=== PATIENT | female | born 1985 | race African-American/Black ===

== ENCOUNTER 2023-05-22 18:46 | Emergency (ER) | payer OTHER, SELFPAY ==
[2023-05-22] VITALS (11 sets, daily range): BP systolic 134–143; BP diastolic 57–84; PULSE 67–85; RESP 14–20; TEMP 36.4–36.6; O2SAT 98–100
--- NOTE | ~2023-05-22 | XR_ITS ---
Clinical Indication: Chest pain PA and lateral views of the chest: Comparison: 11/28/2015 Findings: The lungs are clear, without evidence of focal consolidation or pleural effusion. Cardiome diastinal silhouette is within normal limits. Bones and soft tissues are unremarkable. Impression: Normal chest. Reviewed, dictated and finalized at location . Impression: Normal chest.
--- NOTE | 2023-05-22 18:47 | ECG_ITS ---
Measurements Intervals [place] Rate: 78 P: 52 MI: 158 QRS: 39 QRSD: 82 T: 51 QT: 350 QTc: 400 Interpretive Statements SINUS RHYTHM BASELINE WANDER- I, III NORMAL ECG NO PREVIOUS ECG AVAILABLE FOR COMPARISON Electronically Signed On 05-22-2023 19:13:33 CDT by Varun Sierra D.O.
[2023-05-22 19:38] LABS: Basophils Percent Auto 0.4 % (0.2-1.2); Eosinophils Absolute Auto 0.2 K/mm3 (0-0.3); Eosinophils Percent Auto 2.4 % (0-4.4); Hematocrit 35.6 % (37.0-47.0); Hemoglobin 12.1 g/dL (12.0-15.0); Immature Granulocyte Absolute 0.02 K/mm3 (0.00-0.031); Immature Granulocyte Percent A 0.3 % (0-0.5); Lymphocytes Absolute Auto 2.54 K/mm3 (0.9-3.2); Mean Corpuscular Hemoglobin 29.4 pg (26-34); Mean Corpuscular Volume 86.6 fl (80-100); Monocytes Absolute Auto 0.6 K/mm3 (0.1-0.6); Monocytes Percent Auto 7.6 % (2.6-8.5); Neutrophils Absolute Auto 4.1 K/mm3 (1.3-6.7); Neutrophils Percent Auto 55.3 % (45.5-73.1); Platelet Count Result 312 k/mm3 (150-375); Red Blood Count 4.11 M/mm3 (4.2-5.4); Red Cell Distribution Width 12.6 % (11.5-14.5); White Blood Count 7.5 K/mm3 (4.5-10.0)
[2023-05-22 19:57] LABS: Alanine Aminotransferase 26 U/L (6-35); Albumin Level 4.2 g/dL (3.5-5.1); Alkaline Phosphatase 63 U/L (38-126); Anion Gap 6 mmol/L (8-16); Aspartate Amino Transferase 26 U/L (14-36); Bilirubin,Total 0.8 mg/dL (0.2-1.3); Blood Urea Nitrogen 10 mg/dL (7-17); Calcium 8.6 mg/dL (8.4-10.2); Carbon Dioxide 27 mmol/L (22-30); Chloride 103 mmol/L (98-107); Estimated CRCL calculation 143 ml/min; Estimated Glomerular Filt Rate > 60; Glucose 98 mg/dL (65-110); Lipase 64 U/L (23-300); Potassium 3.9 mmol/L (3.4-5.0); Sodium 136 mmol/L (137-145)
[2023-05-22 20:03] LABS: INR 0.9; Partial Thromboplastin Time 28.1 SECONDS (22.3-36.8); Prothrombin Time 12.9 Seconds (11.1-14.7)
[2023-05-22 20:06] LABS: Troponin I < 0.012 ng/mL (0.000-0.034)
[2023-05-22 20:31] LABS: D Dimer 0.43 ug/mL (<0.48)
[2023-05-22 21:54] LABS: Troponin I < 0.012 ng/mL (0.000-0.034)
--- NOTE | 2023-05-22 21:59 | ED.CHESTPAIN ---
HPI - Chest Pain General Chief Complaint: Chest Pain Stated Complaint: CP Time Seen by Provider: 05/22/23 19:24 History of Present Illness HPI narrative: 37-year-old female presented emergency department for evaluation of left-sided chest pain. Patient reports that the pain started while she was at work today. Patient states the pain is sharp and located her left chest. Patient states the pain is worsened with inspiration. Patient denies any prior history of coronary artery disease. Patient denies any recent falls injuries, patient is not on any form of control or hormone replacement. Denies any prior history of cancer. Patient denies any prior history of pulmonary embolism or DVT. Related Data Allergies Allergy/AdvReac Type Severity Reaction Status Date / Time No Known Allergies Allergy Verified 09/02/19 12:09 Review of Systems Review of Systems: All systems reviewed & are unremarkable except as noted in HPI and below Exam Narrative: APPEARANCE: Well appearing, no pain, no distress, well-nourished. HEAD: normocephalic, atraumatic. EYES: PERRLA/EOMI, conjunctivae clear. NOSE: Normal no drainage NECK: Supple. No adenopathy, no masses. RESPIRATORY: Airway patent, respirations nonlabored. Clear to auscultation bilaterally, no rales, rhonchi, wheezing. CARDIOVASCULAR: Regular rate and rhythm without murmurs rubs or gallops. ABDOMINAL: Soft, nontender, nondistended, normal bowel sounds MUSCULOSKELETAL: Reproducible left chest wall tenderness to palpation NEURO: Alert. Cranial nerves II through XII intact. Good gait. Good coordination SKIN: Warm, dry. Normal Color PSYCHIATRIC: Normal affect/mood. Course Course Emergency Course: 37-year-old female presented the ED for evaluation of left-sided chest pain that is reproducible to palpation. Patient is afebrile with no leukocytosis and a stable hemoglobin. Patient had a D-dimer that was below level of concern. Patient had negative serial troponins. Chest x-ray shows no acute cardiopulmonary abnormality. EKG showed no evidence of acute STEMI or ischemia. Patient was updated results of her work-up. Patient was advised to take ibuprofen for pain control and patient will be treated for pleurisy versus muscular strain. Patient was encouraged of close follow-up with her primary care physician and to have additional outpatient cardiac testing. All questions and concerns were addressed and patient was comfortable with the plan for discharge and close follow-up. Vital Signs Vital signs: Vital Signs Temperature 97.6 F 05/22/23 18:55 Pulse Rate 85 05/22/23 18:55 Respiratory Rate 14 05/22/23 18:55 Blood Pressure 143/84 H 05/22/23 18:55 Pulse Oximetry 98 05/22/23 18:55 Oxygen Delivery Room Air 05/22/23 18:55 Temperature 98 F 05/22/23 22:11 Pulse Rate 71 05/22/23 22:11 Respiratory Rate 20 05/22/23 22:11 Blood Pressure 139/57 L 05/22/23 22:11 Pulse Oximetry 100 05/22/23 22:11 Oxygen Delivery Room Air 05/22/23 19:20 MDM - Chest Pain Lab Data Attestation: I reviewed the patient's lab results. 05/22/23 19:27 05/22/23 19:27 Labs: Lab Results 05/22/23 05/22/23 Range/Units 19:27 21:29 WBC 7.5 (4.5-10.0) K/mm3 RBC 4.11 L (4.2-5.4) M/mm3 Hgb 12.1 (12.0-15.0) g/dL Hct 35.6 L (37.0-47.0) % MCV 86.6 (80-100) fl MCH 29.4 (26-34) pg MCHC 34.0 (32-36) g/dl RDW 12.6 (11.5-14.5) % Plt Count 312 (150-375) k/mm3 MPV 10.0 (7.4-10.4) fl Immature Gran % (Auto) 0.3 (0-0.5) % Neut % (Auto) 55.3 (45.5-73.1) % Lymph % (Auto) 34.0 (18.3-44.2) % [place] % (Auto) 7.6 (2.6-8.5) % Eos % (Auto) 2.4 (0-4.4) % Baso % (Auto) 0.4 (0.2-1.2) % Lymph # (Auto) 2.54 (0.9-3.2) K/mm3 [place] # (Auto) 0.6 (0.1-0.6) K/mm3 Eos # (Auto) 0.2 (0-0.3) K/mm3 Baso # (Auto) 0.0 (0.0-0.1) K/mm3 Abs Immat Gran (auto) 0.02 (0.00-0.031) K/mm3 Absolute Neuts (a
== END 2023-05-22 22:12 | disposition home or self-care (01) ==
PROVIDERS: Emergency Provider Emergency Medicine
DX: R07.81 Pleurodynia (principal)
CPT/HCPCS: 36415; 71046; 80053; 83690; 84484; 85025; 85380; 85610; 85730; 93005; 99284

== ENCOUNTER 2024-01-26 06:52 | Emergency (ER) | payer OTHER, SELFPAY ==
[2024-01-26 06:56] VITALS: BP 144/99; PULSE 69; RESP 18; TEMP 36.9; O2SAT 100
[2024-01-26] MEDS: LORATADINE 10 MG TABLET PO (07:37)
[2024-01-26] MEDS: HYDROCORTISONE 1% 30 GM CREAM 1 APPLIC TOPICAL (07:37)
--- NOTE | 2024-01-26 13:16 | ED.SKABFB ---
HPI - Skin/Abscess/Foreign Bdy General Chief complaint: Skin/Abscess/Foreign Body Stated complaint: extremity pain Time Seen by Provider: 01/26/24 07:05 History of Present Illness HPI narrative: Patient had an old injury to her right anterior baron, with loss of skin and paresthesias, happened about 2 years ago, since then has had some itching to the area, has not followed up with any doctor yet. Has tried Eucerin cream which does help. Related Data Allergies Allergy/AdvReac Type Severity Reaction Status Date / Time No Known Allergies Allergy Verified 09/02/19 12:09 Review of Systems Review of Systems: CONST: No fever. HEENT: No sore throat C/V: No chest pain RESP: No cough GI: No abdominal pain : No dysuria. M/S: No joint pain. SKIN: Itchy scar NEURO: [No headache or focal numbness or weakness] PSYCH: [No depression] Exam Narrative: EXAMINATION OF ORGAN SYSTEMS/BODY AREAS: Constitutional: Vital signs per nursing GENERAL:[No acute distress, non-toxic appearing.] HEAD: Normal with no signs of head trauma. EYES: EOMI, conjunctiva normal ENT: Hearing grossly intact LUNGS: Nonlabored breathing. HEART: [Regular rate and rhythm] ABD: [Soft], [nontender to palpation] EXT: Normal range of motion SKIN: Hypopigmented scar 4cm x 2cm anterior baron NEURO: [Alert and oriented x 3. No gross focal sensory or strength deficits.] PSYCH: Normal affect Course Vital Signs Vital signs: Vital Signs Temperature 98.5 F 01/26/24 06:56 Pulse Rate 69 01/26/24 06:56 Respiratory Rate 18 01/26/24 06:56 Blood Pressure 144/99 H 01/26/24 06:56 Pulse Oximetry 100 01/26/24 06:56 Oxygen Delivery Room Air 01/26/24 06:56 Temperature 98.5 F 01/26/24 06:56 Pulse Rate 69 01/26/24 06:56 Respiratory Rate 18 01/26/24 06:56 Blood Pressure 144/99 H 01/26/24 06:56 Pulse Oximetry 100 01/26/24 06:56 Oxygen Delivery Room Air 01/26/24 06:56 MDM - Skin/Abscess/Foreign Bdy MDM Narrative Medical decision making narrative: Patient presenting with hypopigmented, itchy scar from 2 years ago, she is well-appearing here, I have advised her to follow-up with bullet assembly press setter operator for this, but I will in the meantime try antihistamines and hydrocortisone cream. Stable for discharge at this time. Discharge Plan Discharge Clinical Impression: Scar irritation Patient Disposition: Home, Self-Care Condition: Stable Instructions: Antibiotic Form Additional Instructions: Please follow up with the bullet assembly press setter operator; or ask your PCP to refer you to a bullet assembly press setter operator. Prescriptions: New hydrocortisone 1 % cream 1 applic topical TID PRN (Reason: itching) Qty: 28.35 0RF loratadine 10 mg tablet 10 mg PO DAILY Qty: 30 0RF Follow-up/Referrals: Trenton Macdonald M.D. [Physician] - 2 Days Pelon Kilgore MD [Primary Care Provider] - 2 Days
== END 2024-01-26 07:42 | disposition home or self-care (01) ==
LOC: ANHED 07:31
PROVIDERS: Emergency Provider Emergency Medicine; PCP Emergency Medicine
DX: L98.8 Other specified disorders of the skin and subcutaneous tissue (principal)
CPT/HCPCS: 99283; A9270

== ENCOUNTER 2024-11-30 20:11 | Emergency (ER) | payer OTHER, SELFPAY ==
--- OUTSIDE RECORDS SUMMARY | 2024-11-30 20:13 | XMS_ITS | Referral Summary ---
Author Organization [facility] Address [address] [place] [id number] Care Team Providers Care Special Agent Name Role Phone Pcp, No Primary Care Provider Unavailabl e Allergies No known active allergies Immunizations Name Administration Dates Next Due Tdap 12/11/2021 Social History Tobacco Use Types Packs/Day Years Used Date Smoking Tobacco: Never Assessed Alcohol Use Standard Drinks/Week Comments Yes 0 (1 standard drink = 0.6 oz pur e alcohol) Inadequate Housing Answer Date Recorded Social Determinants: Housing (Overall Score Help er) 0 12/11/2021 Sex and Gender Information Value Date Recorded Sex Assigned at Not on file Gender Identity Not on file Sexual Orientation Not on file Job Start Date Occupation Industry Not on file Not on file Not on file Last Filed Vital Signs Vital Sign Reading Time Taken Comments Blood Pressure 138/73 12/11/2021 5:13 AM CREDIT ASSOCIATE Pulse 95 12/11/2021 5:13 AM CREDIT ASSOCIATE Temperature 37 ??C (98.6 ??F) 12/11/2021 2:45 AM CREDIT ASSOCIATE Respiratory Rate 17 12/11/2021 5:13 AM CREDIT ASSOCIATE Oxygen Saturation 100% 12/11/2021 5:13 AM CREDIT ASSOCIATE Inhaled Oxygen Concentration - - Weight - - Height - - Body Mass Index - - Plan of Treatment Not on file Care Teams Special Agent Relationship Specialty Start Date End Date Pcp, No PCP - General 12/10/21
--- OUTSIDE RECORDS SUMMARY | 2024-11-30 20:14 | XMS_ITS | Data Portability ---
Author Organization [facility] Address [address] [place] [address] Assessment No assessment recorded. Plan of Treatment Reminders Order Date Submit Date Provider Last Modified By Organization Details Last Modified Time Details Appointments None recorded. Lab bacterial vaginosis + vaginitis panel, vaginal 2017 018 [facility], [address] [place] [address], [address], [place], [address], 8 09:07:41 HSV (1+2) DNA, qual, PCR, unspecifie d specimen 2017 018 [facility], [address] [place] [address], [address], [place], [address], 8 09:07:42 pap, IG + HPV, cervical 2017 018 [facility], [address] [place] [address], [address], [place], [address], 8 14:13:49 urinalysis , dipstick 2017 018 [email or web address] In-Office Order, Internal Use Only DO Not Attach Compendium DO Not Attach Compendium, Do Not Delete/merge, [id number] 8 15:15:15 test, urine 2017 018 [email or web address] In-Office Order, Internal Use Only DO Not Attach Compendium DO Not Attach Compendium, Do Not Delete/merge, [id number] 8 15:15:15 hepatitis panel (A+B+C), acute, serum 2017 018 [facility], [address] [facility] [address] [facility], [address], [place], [address], 8 20:09:19 hepatitis B surface Ab, qualitativ e, serum 2017 018 [facility], [address], [address], [place], [address], 8 20:09:20 HIV 1+2 AB + HIV 1 p24 Ag, qualitativ e immunoassa y, serum 2017 [facility], 20[address] Cierra Kyle, [address], [address], 8 20:09:21 treponema pallidum screen, serum, reflex confirmati on 2017 [facility], [address] [place] [address], [address], [place], [address], 8 20:09:20 HSV 2 IgG Ab, QN, IA, serum 2017 [facility], [address] [place] [address], [address], [place], [address], 8 20:09:21 Referral None recorded. Procedures None recorded. Surgeries None recorded. Imaging None recorded. Medication Orders Tablet 28 mg iron-800 mcg 2017 [id number], [address], [place], [id number], 8 15:19:29 Mirena 21 mcg/24 hr (up to 8 years) 52 mg intrauteri ne device [email or web address] [place] [address] [id number], [address] [place], [place], [id number], 9 14:00:52 Ortho Tri-Cyclen (28) 0.18 mg(7)/0.21 5 mg(7)/0.25 mg(7)-35 mcg tablet 2017 018 [facility]FACE [facility] #[id number], [address] [place], [place], [id number], 8 15:35:46 Patient TargetsNo targets recorded. Patient Instructions Encounter Date Encounter Id Patient Instructions Last Modified By Organization Details Last Modified Time 10/16/2018 [id number] When You Want to Lose Weight: Care Instructions [email or web address] Not available 10/16/2018 15:20:00 Well Visit, Ages 18 to 65: Care Instructions [email or web address] Not available 10/16/2018 15:18:49 Reason for Referral None Reported. Results Created Date Observation Date Name Description Value Unit Range Abnormal Flag Note LastModifiedBy Organization Detail LastModifiedTime 10/16/20 18 10/16/2018 pregn nando test, urine HCG negati ve Not Available In-Office Order Internal Use Only DO Not Attach Compendium DO Not Attach Compendium, Do Not Delete/merge, [id number] 10/16/2018 15:08:44 10/16/20 18 10/16/2018 urina lysis , dipst ick Leukocytes Negati ve Not Available In-Office Order Internal Use Only DO Not Attach Compendium DO Not Attach Compendium, Do Not Delete/merge, [id number] 10/16/2018 15:08:43 10/16/20 18 10/16/2018 urina lysis , dipst ick Nitrite negati ve Not Available In-Office Order Internal Use Only DO Not Attach Compendium DO Not Attach Compendium, Do Not Delete/merge, [id number] 10/16/2018 15:08:43 10/16/20 18 10/16/2018 urina lysis , dipst ick Urobilinogen .2 Not Available In-Of fice Order Internal Use Only DO Not Attach Compendium DO Not Attach Compendium, Do Not Delete/merge, [id number] 10/16/2018 15:08:43 10/16/20 18 10/16/2018 urina lysis , dipst ick Protein Negati ve Not Available In-Office Order Internal Use Only DO Not Attach Compendium DO Not Attach Compendium, Do Not Delete/merge, [id number] 10/16/2018 15:08:43 10/16/20 18 10/16/2018 urina lysis , dipst ick pH 6.0 Not Available In-Office Order Internal Use Only DO Not Attach Compendium DO Not Attach Compendium, Do Not Delete/merge, [id number] 10/16/2018 15:08:43 10/16/20 18 10/16/2018 urina lysis , dipst ick Blood Negati ve Not Available In-Office Order Internal Use Only DO Not Attach Compendium DO Not Attach Compendium, Do Not Delete/merge, [id number] 10/16/2018 15:08:43 10/16/20 18 10/16/2018 urina lysis , dipst ick Specific [place] 1.015 Not Available In-Off ice Order Internal Use Only DO Not Attach Compendium DO Not Attach Compendium, Do Not Delete/merge, [id number] 10/16/2018 15:08:43 10/16/20 18 10/16/2018 urina lysis , dipst ick Ketone Negati ve Not Available In-Office Order Internal Use Only DO Not Attach Compendium DO Not Attach Compendium, Do Not Delete/merge, [id number] 10/16/2018 15:08:43 10/16/20 18 10/16/2018 urina lysis , dipst ick Bilirubin Negati ve Not Available In-Office Order Internal Use Only DO Not Attach Compendium DO Not Attach Compendium, Do Not Delete/merge, [id number] 10/16/2018 15:08:43 10/16/20 18 10/16/2018 urina lysis , dipst ick Glucose Negati ve Not Available In-Office Order Internal Use Only DO Not Attach Compendium DO Not Attach Compendium, Do Not Delete/merge, [id number] 10/16/2018 15:08:43 10/16/20 18 10/17/2018 hepat itis panel (A+B+ C), acute , serum hep A Ab, IgM Negati ve negati ve Not Available [facility] ([facility]) [address] [facility] [facility] [address], [place], [address], 10/17/2018 20:09:19 10/16/20 18 10/17/2018 hepat itis panel (A+B+ C), acute , serum HBsAg screen Negati ve negati ve Not Available [facility] ([facility]) [address] [place], [address], 10/17/2018 20:09:19 10/16/20 18 10/17/2018 hepat itis panel (A+B+ C), acute , serum hep B core Ab, IgM Negati ve negati ve Not Available [facility] ([facility]) [address] [place], [address], 10/17/2018 20:09:19 10/16/20 18 10/17/2018 hepat itis panel (A+B+ C), acute , serum hep C virus Ab <0.1 s/co_ ratio 0.0-0. 9 Negat renetta: < 0.8 Indet ermin ate: 0.8 - 0.9 Posit renetta: > 0.9 The CDC recom mends that a posit renetta HCV antib yanet resul t be follo wed up with a HCV Nucle ic Acid Ampli ficat ion test (5507 13). Not Available [facility] ([facility]) [address] [place], [address], 10/17/2018 20:09:19 10/16/20 18 10/17/2018 hepat itis B surfa ce Ab, quali tativ e, serum hep B surface Ab, qual Reacti ve Non React renetta: Incon siste nt with immun ity, less than 10 mIU/m L React renetta: Consi stent with immun ity, great er than 9.9 mIU/m L Not Available [facility] ([facility]) [address] [facility] [address], [place], [address], 10/17/2018 20:09:20 10/16/20 18 10/17/2018 trepo nema palli dum scree n, serum , refle x confi rmati on T pallidum antibodies Negati ve negati ve Not Available [facility] ([facility]) [address] [facility] [address], [place], [address], 10/17/2018 20:09:20 10/16/20 18 10/17/2018 HIV 1+2 AB + HIV 1 p24 Ag, quali tativ e immun oassa y, serum HIV screen 4TH generation wrfx Non Reacti ve non reacti ve Not Available [facility] ([facility]) [address] [facility] [address], [place], [address], 10/17/2018 20:09:20 10/16/20 18 10/17/2018 HSV 2 IgG Ab, QN, IA, serum hsv 2 IgG, type spec 8.19 index 0.00-0 .90 above high normal Negat renetta <0.91 Equiv ocal 0.91 - 1.09 Posit renetta >1.09 Note: Negat renetta indic ates no antib odies detec mario to HSV-2 . Equiv ocal may sugge st early infec tion. If clini bryan appro priat e, retes t at later date. Posit renetta indic ates antib odies detec mario to HSV-2 . Not Available [facility] ([facility]) [address] [facility] [address], [place], [address], 10/17/2018 20:09:21 10/16/20 18 10/18/2018 pap, IG + HPV, cervi kacey diagnosis: Commen t NEGAT RENETTA FOR INTRA EPITH ELIAL LESIO N AND MALIG DAVID . PREDO MINAN CE OF COCCO BACIL LI CONSI STENT WITH SHIFT IN VAGIN AL SUAD IS PRESE NT. CELLU LAR MACDONALD ES ASSOC IATED WITH INFLA MMATI ON ARE PRESE NT. SPECI MEN REPRO CESSE D FOR INTER PRETA TION. Not Available [facility] ([facility]) [address] [facility] [address], [place], [address], 10/18/2018 14:13:49 10/16/20 18 10/18/2018 pap, IG + HPV, cervi kacey specimen adequacy: Mariaa srivastava Satis facto ry for evalu ation . Endoc ervic al and/o r squam ous metap lasti c cells (endo cervi kacey compo nent) are prese nt. Parti ally obscu ring thick areas are prese nt. Not Available [facility] ([facility]) [address] [place], [address], 10/18/2018 14:13:49 10/16/20 18 10/18/2018 pap, IG + HPV, cervi kacey clinician provided ICD10: Mariaa srivastava Z01.4 19 Not Available [facility] ([facility]) [address] [place], [address], 10/18/2018 14:13:49 10/16/20 18 10/18/2018 pap, IG + HPV, cervi kacey performed by: Mariaa Keita rs, Cytot tiffanie srivastava (ASCP ) Not Available [facility] ([facility]) [address] [place], [address], 10/18/2018 14:13:49 10/16/20 18 10/18/2018 pap, IG + HPV, cervi kacey . . Not Available [facility] ([facility]) [address] [place], [address], 10/18/2018 14:13:49 10/16/20 18 10/18/2018 pap, IG + HPV, cervi kacey note: Mariaa srivastava The Pap smear is a scree christiano test desig jose to aid in the detec tion of norma ligna nt and malig nant condi tions of the uteri ne cervi x. It is not a diagn ostic proce dure and shoul d not be used as the sole means of detec ting cervi kacey cance r. Both false -posi tive and false -nega tive repor ts do occur . Not Available [facility] ([facility]) [address] [place], [address], 10/18/2018 14:13:49 10/16/20 18 10/18/2018 pap, IG + HPV, cervi kacey test methodology: Commen t This liqui d based ThinP rep(R ) pap test was salbador garcia with the use of an image guide dalia de la vega Not Available [facility] ([facility]) [address] [place], [address], 10/18/2018 14:13:49 10/16/20 18 10/18/2018 pap, IG + HPV, cervi kacey HPV aptima Negati ve negati ve This test detec ts fourt een high- risk HPV types (16/1 8/31/ 33/35 /39/4 5/ 51/52 /56/5 8/59/ 66/68 ) witho ut tiffaniee neeraj ation . Not Available [facility] ([facility]) [address] [facility] [address], [place], [address], 10/18/2018 14:13:49 10/16/20 18 10/19/2018 bacte rial vagin osis + vagin itis panel , vagin al trich vag by TAI Negati ve negati ve Not Available [facility] ([facility]) [address] [place], [address], 10/24/2018 09:07:41 10/16/20 18 10/19/2018 bacte rial vagin osis + vagin itis panel , vagin al chlamydia trachomatis, TAI Positi ve negati ve abnormal Not Available [facility] ([facility]) [address] [place], [address], 10/24/2018 09:07:41 10/16/20 18 10/19/2018 bacte rial vagin osis + vagin itis panel , vagin al neisseria gonorrhoeae, TAI Negati ve negati ve Not Available [facility] ([facility]) [address] [place], [address], 10/24/2018 09:07:41 10/16/20 18 10/21/2018 bacte rial vagin osis + vagin itis panel , vagin al atopobium vaginae Modera te - 1 score Not Available [facility] ([facility]) [address] [place], [address], 10/24/2018 09:07:41 10/16/20 18 10/21/2018 bacte rial vagin osis + vagin itis panel , vagin al bvab 2 High - 2 score abnormal Not Available [facility] ([facility]) [address] [place], [address], 10/24/2018 09:07:41 10/16/20 18 10/21/2018 bacte rial vagin osis + vagin itis panel , vagin al megasphaera 1 High - 2 score abnormal Calcu late total score by wendie patrick the 3 indiv idual bacte rial vagin osis (BV) marke r score s toget her. Total score is inter prete d as follo ws: Total score 0-1: Indic ates the absen ce of BV. Total score 2: Indet ermin ate for BV. Addit ional clini kacey data shoul d be evalu ated to estab jasmeet a diagn osis. Total score 3-6: Indic ates the prese nce of BV. This test was devel oped and its perfo rmanc e patti cteri stics deter mined by [facility]. It has not been clear ed or appro ana m by the Food and Drug Admin istra tion. The FDA has deter mined that such clear ance or appro ivania is not neces vivian. Not Available [facility] ([facility]) [address] [place], [address], 10/24/2018 09:07:41 10/16/20 18 10/24/2018 bacte rial vagin osis + vagin itis panel , vagin al martín albicans, TAI Negati ve negati ve Not Available [facility] ([facility]) [address] [place], [address], 10/24/2018 09:07:41 10/16/20 18 10/24/2018 bacte rial vagin osis + vagin itis panel , vagin al martín glabrata, TAI Negati ve negati ve This test was devel oped and its perfo rmanc e ptati cteri stics deter mined by [facility]. It has not been clear ed or appro ana m by the Food and Drug Admin istra tion. The FDA has deter mined that such clear ance or appro ivania is not neces vivian. Not Available [facility] ([facility]) [address] [place], [address], 10/24/2018 09:07:41 10/16/20 18 10/22/2018 HSV (1+2) DNA, qual, PCR, unspe cifie d speci men hsv 1 TAI Negati ve negati ve Not Available [facility] ([facility]) [address] [place], [address], 10/24/2018 09:07:42 10/16/20 18 10/22/2018 HSV (1+2) DNA, qual, PCR, unspe cifie d speci men hsv 2 TAI Negati ve negati ve Not Available [facility] ([facility]) [address] [place], [address], 10/24/2018 09:07:42 Result Notes None recorded. Problems Name Problem SNOMED Code Status Onset Date Resolution Date Notes Provider Name and Address Organization Details Recorded Time Genital herpes simplex 25869011 Active 2017 Jenny Reynolds MD Attn: Accounting, [address] [place], [address], [facility] 8 13:37:04 Bacterial vaginosis 032801018 Active 2017 Jenny Reynolds MD Attn: Accounting, [address] [place], [address], [facility] 8 09:10:42 Chlamydial cervicitis 755800305 Active 2017 Jenny Reynolds MD Attn: Accounting, [address] , [place], [address], [facility] 8 09:10:57 Problem Notes None recorded. Procedures Surgical History Date Name Laterality Status Provider Name and Address Organization Details Recorded Time cholecystectomy completed Khai Pizarro MA [facility] 10/16/2018 15:06:03 tonsillectomy completed Khai Pizarro MA [facility] 10/16/2018 15:06:19 Imaging Results None recorded. Procedure Notes None recorded. Medical Equipment None Reported. Allergies No known drug allergies Medications Name Sig Start Date Stop Date Status Note LastModified by Organization Details LastModified Time Mirena 21 mcg/24 hr (up to 8 years) 52 mg intrauterine device 2018 active Not Available Not Available Not Avai lable Flagyl 500 mg tablet Take 1 tablet twice a day by oral route for 7 days. 2017 active Not Available Not Available Not Avai lable Ortho Tri-Cyclen (28) 0.18 mg(7)/0.215 mg(7)/0.25 mg(7)-35 mcg tablet Take 1 tablet every day by oral route. 2017 active Not Available Not Available Not Avai lable Tablet 28 mg iron-800 mcg Take 1 tablet every day by oral route. 2017 active Not Available Not Available Not Avai lable azithromycin 500 mg tablet Take 2 tablets every day by oral route for 1 day. 2017 active Not Available Not Available Not Avai lable Vitals Date Recorded Body weight Provider Name an d Address Organization Details Last Updated DateTime 10/16/2018 698281.07 g Khai Pizarro MA [facility] 2017 14:58:19 Date Recorded Systolic blood pressure Diastolic blood pressure Provider Name and Address Organization Details Last Updated DateTime 10/16/2018 126 mm[Hg] 82 mm[Hg] Khai Pizarro MA [facility] 10/16/2018 14:59:31 Social History Question Answer Notes LastModified by Organizat ion Details LastModified Time Tobacco Smoking Status Current Every Day Smoker Khai Pizarro MA [facility], [place] [facility] 10/16/2018 15:03:31 Do You Have An Advance Directive? No Information not available 10/16/2018 What Is Your Level Of Alcohol Consumption? Occasional Information not available 10/16/2018 Is Blood Transfusion Acceptable In An Emergency? Yes Information not available 10/16/2018 What Is Your Level Of Caffeine Consumption? Moderate Information not available 10/16/2018 How Much Tobacco Do You Chew? None Information not available 10/16/2018 Are You Currently Employed? Yes Information not available 10/16/2018 What Type Of Diet Are You Following? REGULAR Information not available 10/16/2018 Which Illicit Or Recreational Drugs Have You Used? Marijuana Information not available 10/16/2018 Education 12 Information no t available 10/16/2018 What Is Your Occupation? [employer] Information not available 10/16/2018 Are There Any Guns Present In Your Home? No Information not available 10/16/2018 Hard Of Hearing Or Deaf In One Or Both Ears? No Information not available 10/16/2018 Legally Blind In One Or Both Eyes? No Information no t available 10/16/2018 Live Alone Or With Others? With Others Information not available 10/16/2018 Marital Status Single Informatio n not available 10/16/2018 What Was The Date Of Your Most Recent Tobacco Screening? 10/16/2018 Information not available 05/23/2019 How Many Children Do You Have? 2 Information not available 10/16/2018 Performs Monthly Self-breast Exam? Yes Information no t available 10/16/2018 Do You Use Protection During Sex? Usually Information not available 10/16/2018 What Is Your Relationship Status? Single Information not available 10/16/2018 Seat Belts Used Routinely Yes Information not available 10/16/2018 Are You Sexually Active? Yes Information not available 10/16/2018 Smoke Alarm In Home Yes Information not available 10/16/2018 At What Age Did You Start Smoking Tobacco? 18 Information not available 10/16/2018 How Much Tobacco Do You Smoke? 1 PPW beverly Information not available 10/16/2018 General Stress Level High beverly Information not available 10/16/2018 Do You Use Sunscreen Routinely? No Information not available 10/16/2018 How Many Years Have You Smoked Tobacco? 15 beverly Information not available 10/16/2018 Sex: Unknown Functional Status Question Answer Note LastModified by Organization D etails LastModified Time What is your exercise level? None Information not available 10/16/2018 Mental Status None recorded. Family History Relationship Description Onset Age of this Age Resolved Age Notes LastModified by Organization Details LastModified Time Father No current problems or disability [facility] Not available 09/29 15:03:17 Mother No current problems or disability [facility] Not available 09/29 15:03:17 Medical History Condition Response Other N High Blood Pressure N Breast Cancer N Depression N Blood Clots N Lung Disease N Breast Problem N Anesthesia Complications N Headaches/Migraines N Anxiety Disorder N Muscle, Joint, or Bone Problems N Polyps N Infertility N Acid Reflux (GERD) N Cancer N Endometriosis N High Cholesterol N Liver Disease N Thyroid Problems N Kidney or Bladder Problems N GI Problems N Acne N Eating Disorder N Anemia N Diabetes N Ovarian Cancer N Blood Transfusions N Seizures/Epilepsy N Abuse/Domestic Violence N Asthma N Hepatitis N Heart Disease N Pre-Eclampsia N Osteoporosis N Gynecological History Statement/Question Response Abnormal Pap N Flow Moderate On BCP's at Conception? N STIs/STDs Y HPV Vaccine N Duration of Flow (days) 4 Age at Menarche 13 Current Control Method None Age at First Child 23 Frequency of Cycle (Q days) 30 Sexually Active? Y Menses Monthly Y Date of Last Pap Smear Sexual Problems? N LMP Definite Desired Control Method Unknown Obstetrics History GPAL:G 2 P 2 0 1 2 Type Value Multiple Births 0 Full Term 2 Induced 1 Spontaneous 0 Premature 0 Living 2 Ectopics 0 Total 2 Immunizations Vaccine Type Date Status Note Provider Nam e and Address Organization Details Recorded Time HPV9 10/16/2018 completed Not Available [facility] 11/16/2019 02:41:28 Past Encounters Encounter ID Performer Location Encounter Start Date Encounter Closed Date Diagnosis/Indication Diagnosis SNOMED-CT Code Diagnosis ICD10 Code Diagnosis Note [id number] MD Lorena Pompa (WEB DESIGNER) [facility] [place] [address] 10/16/2018 14:41:44 10/16/2018 16:37:27 Gynecologic examination 98513105 Z01.419 Age appropriat e counseling done. Venereal d isease screening 288232307 Z11.3 Z20.2 Obesity 675815935 E66.9 Counseled About weight loss, diet and excercise. Advised patient to f/u with fresh foods clerk. Family darinel nning surveillance 078164679 Z30.09 Counseled patient about different forms of control methods including Condoms, OCPS, Depo Provera, Nuva ring, patch, Nexplanon, IUD, -- etc. Patient desires to have Mirena IUD. Counseled thoroughly about benefits and risks, mechanism of action, efficacy, administra tion, contraindi cations, return to fertility after discontinu ation, side effects, effect on menstrual changes, weight changes, head ache, mood changes, effect on depression , anxiety and bipolar, venous thromboemb olism. Patient verbalized understand ing. Urine test negative today. Counseled about importance of using condoms with IUD to prevent STD's. Patient desires to have OCP's until mirena is in office. Active or passive immunization 085508450 Z23 Health Concerns Section Related Observation LastModified by Organization Detai ls LastModified Time None Recorded Concern Status LastModified by Organization Details LastModified Time None Recorded Advance Directives Directive N: Payers Encounter Date Sequence Insurance Name Policy Number Policy Pedraza Covered Member ID Pedraza Member ID Guarantor Name 10/16/2018 1 [employer] (MEDICAID HMO) [facility] SHERYL Lawton [id number] Dede Lawton Notes Date Note Type Note Provider Name and Address Organization Details Recorded Time 10/16/2018 text/html Annual GYNReport ed bypatient.History:n o gynecologic complaints Menstrual cycle:Normal menses Urinary symptoms:No hematuria; No incontinence Vulva:No genital lesion Vagina:Normal vaginal discharge Breast:No breast pain; No breast lump; No nipple discharge Current Contraception:Wants to discuss contraceptive options Sexual complaints:No sexual complaints; No pain during intercourse; Normal libido Menopausal Symptoms:No menopausal symptoms; Normal vaginal lubrication Psychological symptoms:No depression; No anxiety; No PMDD Preventive measures:Encourage self breast examination; Encourage regular exercise; Encourage no tobacco use; Encourage regular mammograms starting age 40; also counseled about calcium intake and advised to start over the counter calcium treatment. PAP with cotesting every 5 years. Jenny Reynolds MD Attn: Accounting,[address] [place], [address], [facility] 10/16/2018 15:42:32 OBGyn Episode No OBEpisode recorded.
--- OUTSIDE RECORDS SUMMARY | 2024-11-30 20:14 | XMS_ITS | Clinical Summary ---
Author Organization [facility] Address [address] [place] [id number] Care Team Providers Care Freelance Web Designer Name Role Phone Pcp, No Primary Care Provider Unavailabl e Allergies No known active allergies Immunizations Name Administration Dates Next Due Tdap 12/11/2021 Surgical History Surgery Date Site/Laterality Comments CHOLECYSTECTOMY TONSILLECTOMY Social History Tobacco Use Types Packs/Day Years [...] file Not on file Not on file Obstetrics History Last Filed Vital Signs Vital Sign Reading Time Taken Comments Blood Pressure 138/73 12/11/2021 5:13 AM MANIFOLD BUILDER Pulse 95 12/11/2021 5:13 AM MANIFOLD BUILDER Temperature 37 ??C (98.6 ??F) 12/11/2021 2:45 AM MANIFOLD BUILDER Respiratory Rate 17 12/11/2021 5:13 AM MANIFOLD BUILDER Oxygen Saturation 100% 12/11/2021 5:13 AM MANIFOLD BUILDER Inhaled Oxygen Concentration - - Weight - - Height - - Body Mass Index - - Plan of Treatment Health Maintenance Due Date Last Done Comments Depression Screening 1999 Varicella Vaccine (1 of 2 - 13+ 2-dose series) 2000 Hepatitis B Vaccine (1 of 3 - 19+ 3-dose series) 2006 COVID-19 Vaccine (2023-2 5 season) 2024 Influenza Vaccine (#1) 2024 DTaP/Tdap/Td Vaccine (2 - Td or Tdap) 12/11/2031 12/11/2021 HPV Vaccine Aged Out No longer eligi ble based on patient's age to complete this topic Meningococcal Vaccine Aged Out No neftaly sudha eligible based on patient's age to complete this topic Pneumococcal Vaccine 0-49 Aged Out No longer eligible based on patient's age to complete this topic Care Teams Freelance Web Designer Relationship Specialty Start Date End Date Pcp, No PCP - General 12/10/21
[2024-11-30 20:17] VITALS: BP 149/82; PULSE 100; RESP 15; TEMP 36.3; O2SAT 100
[2024-11-30 21:37] LABS: Influenza A QL RT-PCR Negative (Negative); Influenza B QL RT-PCR Negative (Negative); RSV RNA, RT-PCR Negative (Negative); SARS-CoV-2 RNA PCR Negative (Negative)
--- OUTSIDE RECORDS SUMMARY | 2024-11-30 22:15 | XMS_ITS | Clinical Summary ---
Author Organization [facility] Address [address] [place] [id number] Care Team Providers Care Family Educator Name Role Phone Pcp, No Primary Care [...] Comments Blood Pressure 138/73 12/11/2021 5:13 AM PLATFORM LOADER Pulse 95 12/11/2021 5:13 AM PLATFORM LOADER Temperature 37 ??C (98.6 ??F) 12/11/2021 2:45 AM PLATFORM LOADER Respiratory Rate 17 12/11/2021 5:13 AM PLATFORM LOADER Oxygen Saturation 100% 12/11/2021 5:13 AM PLATFORM LOADER Inhaled Oxygen Concentration - - Weight - [...] age to complete this topic Care Teams Family Educator Relationship Specialty Start Date End Date Pcp, No PCP - General 12/10/21
--- OUTSIDE RECORDS SUMMARY | 2024-11-30 22:15 | XMS_ITS | Referral Summary ---
Author Organization [facility] Address [address] [place] [id number] Care Team Providers Care Embedded Systems Software Engineer Name Role Phone Pcp, No Primary Care [...] Comments Blood Pressure 138/73 12/11/2021 5:13 AM COOKER SYRUP Pulse 95 12/11/2021 5:13 AM COOKER SYRUP Temperature 37 ??C (98.6 ??F) 12/11/2021 2:45 AM COOKER SYRUP Respiratory Rate 17 12/11/2021 5:13 AM COOKER SYRUP Oxygen Saturation 100% 12/11/2021 5:13 AM COOKER SYRUP Inhaled Oxygen Concentration - - Weight - - Height - - Body Mass Index - - Plan of Treatment Not on file Care Teams Embedded Systems Software Engineer Relationship Specialty Start Date End Date Pcp, No PCP - General 12/10/21
--- NOTE | 2024-11-30 22:47 | ED.URI ---
HPI - URI/Sore Throat General Chief Complaint: Nausea/Vomiting/Diarrhea Stated Complaint: n/v/d, sob Time Seen by Provider: 11/30/24 21:43 Source: patient Mode of arrival: ambulatory Limitations: no limitations History of Present Illness HPI Narrative: This is a 39-year-old female that presents to the emergency department for cold symptoms. Present over the last couple of days. Reports fever, myalgias, cough, congestion, diarrhea. Reports similar symptoms in her son. Related Data Allergies Allergy/AdvReac Type Severity Reaction Status Date / Time No Known Allergies Allergy Verified 11/30/24 20:12 Review of Systems Review of Systems: CONSTITUTIONAL: Reports fever ENT: Reports rhinorrhea, congestion RESPIRATORY: Reports cough and dyspnea. GASTROINTESTINAL: Reports diarrhea. All systems reviewed & are unremarkable except as noted in HPI and below PMFSH Past Medical History Medical History (Updated 11/30/24 @ 22:54 by Madison Rachel PA-C) No active medical problems Social History Social History (Updated 11/30/24 @ 22:49 by Madison Rachel PA-C) Substance use: never Exam Narrative: GENERAL: Well-appearing, well-nourished, and in no acute distress. HEAD: Normocephalic, atraumatic. EYES: EOMI. ENT: Nares clear, no rhinorrhea or epistaxis. Mucous membranes moist. Oropharynx without tonsillar hypertrophy exudate or other lesions. Bilateral TMs pearly contreras non-bulging NECK: Supple. No adenopathy or masses. CHEST: No respiratory distress. Mild, expiratory wheezing. No rales or rhonchi HEART: Regular rate and rhythm. No murmur heard. Normal peripheral pulses. EXTREMITIES: Normal range of motion. No edema. SKIN: Warm, dry, no rash. NEURO: No focal deficits. Alert and oriented x3. PSYCH: Normal mood and affect Course Course Emergency Course: Patient updated on her workup and agrees with plan of care Vital Signs Vital signs: Vital Signs Temperature 97.3 F L 11/30/24 20:17 Pulse Rate 100 11/30/24 20:17 Respiratory Rate 15 11/30/24 20:17 Blood Pressure 149/82 H 11/30/24 20:17 Pulse Oximetry 100 11/30/24 20:17 Oxygen Delivery Room Air 11/30/24 20:17 Temperature 97.3 F L 11/30/24 20:17 Pulse Rate 100 11/30/24 20:17 Respiratory Rate 15 11/30/24 20:17 Blood Pressure 149/82 H 11/30/24 20:17 Pulse Oximetry 100 11/30/24 20:17 Oxygen Delivery Room Air 11/30/24 20:17 MDM - URI/Sore Throat MDM Narrative Medical decision making narrative: Patient presents to the emergency department for cold symptoms present over the last couple of days. Patient is afebrile and nontoxic appearing. Oxygen saturation is normal on room air. Patient with mild expiratory wheezing. Given nebulizer treatment with improvement. Influenza, RSV and COVID screens are negative. Patient updated on her workup and agrees with plan of care. Will be continued on oral steroids and given albuterol inhaler for acute bronchitis. She was given warnings to return to the ER Differential Diagnosis Differential diagnosis: Likely upper respiratory infection, viral infection, bronchitis, influenza and other (COVID, RSV) Lab Data Attestation: I reviewed the patient's lab results. Labs: Lab Results 11/30/24 Range/Units 20:56 Influenza A (RT-PCR) Negative (Negative) Influenza B (RT-PCR) Negative (Negative) RSV (RT-PCR) Negative (Negative) SARS-CoV-2 RNA (RT-PCR) Negative (Negative) Critical Care Time Critical Care Time Critical Care Time: No Discharge Plan Discharge Clinical Impression: Acute bronchitis Qualifiers: Bronchitis organism: unspecified organism Qualified Code(s): J20.9 - Acute bronchitis, unspecified Patient Disposition: Home, Self-Care Condition: Stable Instructions: Acute Bronchitis (ED) Additional Instructions: Return to the emergency department for worsening symptoms, or any other concerns Remain well-hydrated, get plenty of rest. Take Tylenol or Motrin [id number] for pain as needed. Flonase for nasal congestion. Zyrtec for runny nose. Lozenges or Chloraseptic spray for sore throat. Albuterol 2 puffs every 4-6 hours as needed for shortness of breath or wheezing. Continue oral steroid as prescribed Follow up with primary care doctor Patient Language: Macedonian Prescriptions: New albuterol sulfate [Ventolin HFA] 90 mcg/actuation HFA aerosol inhaler 2 puff inhalation QID PRN (Reason: shortness of breath or wheezing) Qty: 8.5 0RF prednisone 20 mg tablet 40 mg PO DAILY 4 Days Qty: 8 0RF No Action hydrocortisone 1 % cream 1 applic topical TID PRN (Reason: itching) Qty: 28.35 0RF loratadine 10 mg tablet 10 mg PO DAILY Qty: 30 0RF Follow-up/Referrals: PHYSICIAN,ASSISTANT PROFESSOR OF ANTHROPOLOGY [Primary Care Provider] - Sylvester Edwards MD [Physician] -
[2024-11-30] MEDS: IPRATROPIUM 0.5 MG/ALBUTEROL SULFATE 2.5 MG AMPUL.NEB 3 ML INHALATION (22:48)
[2024-11-30 22:49] VITALS: PULSE 16; RESP 95
[2024-11-30 22:57] VITALS: PULSE 16; RESP 101
[2024-11-30] MEDS: predniSONE 20 MG TABLET 40 MG PO (22:59)
[2024-11-30 23:02] VITALS: BP 137/98; PULSE 84; RESP 20; TEMP 36.7; O2SAT 100
== END 2024-11-30 23:07 | disposition home or self-care (01) ==
PROVIDERS: Emergency Provider Physician Assistant
DX: J20.9 Acute bronchitis, unspecified (principal); Z20.822 Contact with and (suspected) exposure to COVID-19
CPT/HCPCS: 87637; 94640; 99283; J7512

== ENCOUNTER 2025-04-01 11:36 | Emergency (ER) | payer OTHER, SELFPAY ==
--- OUTSIDE RECORDS SUMMARY | 2025-04-01 11:40 | XMS_ITS | Data Portability ---
[facility] Organization [facility] Address [address] [place] [address] Assessment No assessment recorded. Plan of Treatment Reminders Order Date Submit Date Provider Last Modified By Organization Details Last Modified Time Details Appointments None recorded. Lab bacterial vaginosis + vaginitis panel, vaginal 2017 018 [facility], [address] [place] [address], [address], [place], [address], 8 09:07:41 HSV (1+2) DNA, qual, PCR, unspecifie d specimen 2017 018 [facility], [address] [place] [address], [address], [place], [address], 8 09:07:42 pap, IG + HPV, cervical 2017 018 [facility], [address] [place] [address], [address], [place], [address], 8 14:13:49 urinalysis , dipstick 2017 018 [email or web address] In-Office Order, Internal Use Only DO Not Attach Compendium DO Not Attach Compendium, Do Not Delete/merge, [id number] 8 15:15:15 test, urine 2017 018 [email or web address] In-Office Order, Internal Use Only DO Not Attach Compendium DO Not Attach Compendium, Do Not Delete/merge, [id number] 8 15:15:15 hepatitis panel (A+B+C), acute, serum 2017 [facility], [address], [address], [place], [address], 8 20:09:19 hepatitis B surface Ab, qualitativ e, serum 2017 [facility], [address] [facility], [address], [place], [address], 8 20:09:20 HIV 1+2 AB + HIV 1 p24 Ag, qualitativ e immunoassa y, serum 2017 [facility], [address] [facility], [place], [address], 8 20:09:21 treponema pallidum screen, serum, reflex confirmati on 2017 [facility] Patient Can Go To The Location Of Their Choice, [id number] 8 20:09:20 HSV 2 IgG Ab, QN, IA, serum 2017 [facility]), Patient Can Go To The Location Of Their Choice, [id number] 8 20:09:21 Referral None recorded. Procedures None recorded. Surgeries None recorded. Imaging None recorded. Medication Orders Tablet 28 mg iron-800 mcg 2017 [id number], [address], [place], [id number], 8 15:19:29 Mirena 21 mcg/24 hr (up to 8 years) 52 mg intrauteri ne device 2017 [facility][id number], [address], [place], [id number], 9 14:00:52 Ortho Tri-Cyclen (28) 0.18 mg(7)/0.21 5mg(7)/0.2 5 mg(7)-0.03 5 mg tablet 2017 018 [facility] #[id number] [address] [place], [place], [id number], 8 15:35:46 Patient TargetsNo targets recorded. Patient Instructions Encounter Date Encounter Id Patient Instructions Last Modified By Organization Details Last Modified Time 10/16/2018 [id number] When You Want to Lose Weight: Care Instructions [email or web address] Not available 10/16/2018 15:20:00 Well Visit, Ages [...] DO Not Attach Compendium, Do Not Delete/merge, [id number] 10/16/2018 15:08:44 10/16/20 18 10/16/2018 urina lysis , dipst ick Leukocytes Negati ve Not Available In-Office Order Internal Use Only DO Not Attach Compendium DO Not Attach Compendium, Do Not Delete/merge, [id number] 10/16/2018 15:08:43 10/16/20 18 10/16/2018 urina lysis , dipst ick Nitrite negati ve Not Available In-Office Order Internal Use Only DO Not Attach Compendium DO Not Attach Compendium, Do Not Delete/merge, [id number] 10/16/2018 15:08:43 10/16/20 18 10/16/2018 urina lysis , dipst ick Urobilinogen .2 Not Available In-Of fice Order Internal Use Only DO Not Attach Compendium DO Not Attach Compendium, Do Not Delete/merge, [id number] 10/16/2018 15:08:43 10/16/20 18 10/16/2018 urina lysis , dipst ick Protein Negati ve Not Available In-Office Order Internal Use Only DO Not Attach Compendium DO Not Attach Compendium, Do Not Delete/merge, [id number] 10/16/2018 15:08:43 10/16/20 18 10/16/2018 urina lysis , dipst ick pH 6.0 Not Available In-Office Order Internal Use Only DO Not Attach Compendium DO Not Attach Compendium, Do Not Delete/merge, [id number] 10/16/2018 15:08:43 10/16/20 18 10/16/2018 urina lysis , dipst ick Blood Negati ve Not Available In-Office Order Internal Use Only DO Not Attach Compendium DO Not Attach Compendium, Do Not Delete/merge, [id number] 10/16/2018 15:08:43 10/16/20 18 10/16/2018 urina lysis , dipst ick Specific [place] 1.015 Not Available In-Off ice Order Internal Use Only DO Not Attach Compendium DO Not Attach Compendium, Do Not Delete/merge, [id number] 10/16/2018 15:08:43 10/16/20 18 10/16/2018 urina lysis , dipst ick Ketone Negati ve Not Available In-Office Order Internal Use Only DO Not Attach Compendium DO Not Attach Compendium, Do Not Delete/merge, [id number] 10/16/2018 15:08:43 10/16/20 18 10/16/2018 urina lysis , dipst ick Bilirubin Negati ve Not Available In-Office Order Internal Use Only DO Not Attach Compendium DO Not Attach Compendium, Do Not Delete/merge, [id number] 10/16/2018 15:08:43 10/16/20 18 10/16/2018 urina lysis , dipst ick Glucose Negati ve Not Available In-Office Order Internal Use Only DO Not Attach Compendium DO Not Attach Compendium, Do Not Delete/merge, [id number] 10/16/2018 15:08:43 10/16/20 18 10/17/2018 hepat itis panel (A+B+ C), acute , serum hep A Ab, IgM Negati ve negati ve Not Available [facility] ([facility]) [address] [facility] [address], [place], [address], 10/17/2018 20:09:19 10/16/20 18 10/17/2018 hepat itis panel (A+B+ C), acute , serum HBsAg screen Negati ve negati ve Not Available [facility] ([facility]) [address] [facility] [address], [place], [address], 10/17/2018 20:09:19 10/16/20 18 10/17/2018 hepat itis panel (A+B+ C), acute , serum hep B core Ab, IgM Negati ve negati ve Not Available [facility] ([facility]) [address] [facility] [address], [place], [address], 10/17/2018 20:09:19 10/16/20 18 10/17/2018 hepat itis [...] ion test (5507 13). Not Available [facility] ([facility]) [address] [facility] [address], [place], [address], 10/17/2018 20:09:19 10/16/20 18 10/17/2018 hepat itis B surfa ce Ab, quali tativ e, serum hep B surface Ab, qual Reacti ve Non React renetta: Incon siste nt with immun ity, less than 10 mIU/m L React renetta: Consi stent with immun ity, great er than 9.9 mIU/m L Not Available [facility] ([facility]) [address] [facility] [address], [place], [address], 10/17/2018 20:09:20 10/16/20 18 10/17/2018 trepo nema palli dum scree n, serum , refle x confi rmati on T pallidum antibodies Negati ve negati ve Not Available [facility] ([facility]) [address] [facility] [address], [place], [address], 10/17/2018 20:09:20 10/16/20 18 10/17/2018 HIV 1+2 AB + HIV 1 p24 Ag, quali tativ e immun oassa y, serum HIV screen 4TH generation wrfx Non Reacti ve non reacti ve Not Available [facility] ([facility]) [address] [facility] [address], [place], [address], 10/17/2018 20:09:20 10/16/20 18 10/17/2018 HSV 2 [...] mario to HSV-2 . Not Available [facility] ([facility]) [address] [facility] [address], [place], [address], 10/17/2018 20:09:21 10/16/20 18 10/18/2018 pap, IG [...] FOR INTER PRETA TION. Not Available [facility] ([facility]) [address] [facility] [address], [place], [address], 10/18/2018 14:13:49 10/16/20 18 10/18/2018 pap, IG + HPV, cervi kacey specimen adequacy: Mariaa srivastava Satis facto ry for evalu ation . Endoc ervic al and/o r squam ous metap lasti c cells (endo cervi kacey compo nent) are prese nt. Parti ally obscu ring thick areas are prese nt. Not Available [facility] ([facility]) [address] [place], [address], 10/18/2018 14:13:49 10/16/20 18 10/18/2018 pap, IG + HPV, cervi kacey clinician provided ICD10: Mariaa srivastava Z01.4 19 Not Available [facility] ([facility]) [address] [place], [address], 10/18/2018 14:13:49 10/16/20 18 10/18/2018 pap, IG + HPV, cervi kacey performed by: Mariaa Keita rs, Cytot tiffanie srivastava (ASCP ) Not Available [facility] ([facility]) [address] [place], [address], 10/18/2018 14:13:49 10/16/20 18 10/18/2018 pap, IG + HPV, cervi kacey . . Not Available [facility] ([facility]) [address] [place], [address], 10/18/2018 14:13:49 10/16/20 18 10/18/2018 pap, IG [...] ts do occur . Not Available [facility] ([facility]) [address] [place], [address], 10/18/2018 14:13:49 10/16/20 18 10/18/2018 pap, IG + HPV, cervi kacey test methodology: Commen t This liqui d based ThinP rep(R ) pap test was salbador garcia with the use of an image guide dalia de la vega Not Available [facility] ([facility]) [address] [place], [address], 10/18/2018 14:13:49 10/16/20 18 10/18/2018 pap, IG + HPV, cervi kacey HPV aptima Negati ve negati ve This test detec ts fourt een high- risk HPV types (16/1 8/31/ 33/35 /39/4 5/ 51/52 /56/5 8/59/ 66/68 ) witho ut tiffaniee neeraj ation . Not Available [facility] ([facility]) [address] [place], [address], 10/18/2018 14:13:49 10/16/20 18 10/19/2018 bacte rial vagin osis + vagin itis panel , vagin al trich vag by TAI Negati ve negati ve Not Available [facility] ([facility]) [address] [place], [address], 10/24/2018 09:07:41 10/16/20 18 10/19/2018 bacte rial vagin osis + vagin itis panel , vagin al chlamydia trachomatis, TAI Positi ve negati ve abnormal Not Available [facility] ([facility]) [address] [place], [address], 10/24/2018 09:07:41 10/16/20 18 10/19/2018 bacte rial vagin osis + vagin itis panel , vagin al neisseria gonorrhoeae, TAI Negati ve negati ve Not Available [facility] ([facility]) [address] [place], [address], 10/24/2018 09:07:41 10/16/20 18 10/21/2018 bacte rial vagin osis + vagin itis panel , vagin al atopobium vaginae Modera te - 1 score Not Available [facility] ([facility]) [address] [place], [address], 10/24/2018 09:07:41 10/16/20 18 10/21/2018 bacte rial vagin osis + vagin itis panel , vagin al bvab 2 High - 2 score abnormal Not Available [facility] ([facility]) [address] [place], [address], 10/24/2018 09:07:41 10/16/20 18 10/21/2018 bacte rial vagin osis + vagin itis panel , vagin al megasphaera 1 High - 2 score abnormal Calcu late total score by wendie g the 3 indiv idual bacte rial vagin [...] is not neces vivian. Not Available [facility] ([facility]) [address] [facility] [address], [place], [address], 10/24/2018 09:07:41 10/16/20 18 10/24/2018 bacte rial vagin osis + vagin itis panel , vagin al martín albicans, TAI Negati ve negati ve Not Available [facility] ([facility]) [address] [facility] [address], [place], [address], 10/24/2018 09:07:41 10/16/20 18 10/24/2018 bacte rial [...] clear ance or appro ivania is not nectr vivian. Not Available [facility] ([facility]) [address] [facility] [address], [place], [address], 10/24/2018 09:07:41 10/16/20 18 10/22/2018 HSV (1+2) DNA, qual, PCR, unspe cifie d speci men hsv 1 TAI Negati ve negati ve Not Available [facility] ([facility]) [address] [place], [address], 10/24/2018 09:07:42 10/16/20 18 10/22/2018 HSV (1+2) DNA, qual, PCR, unspe cifie d speci men hsv 2 TAI Negati ve negati ve Not Available [facility] ([facility]) [address] [place], [address], 10/24/2018 09:07:42 Result Notes None recorded. Problems Name Problem SNOMED Code Status Onset Date Resolution Date Notes Provider Name and Address Organization Details Recorded Time Genital herpes simplex 42461550 Active 2017 Jenny Reynolds MD Attn: Accounting, [address] [facility] [address], [place], [address], [facility] 8 13:37:04 Bacterial vaginosis 953341907 Active 2017 Jenny Reynolds MD Attn: Accounting, [address] [place], [address], [facility] 8 09:10:42 Chlamydial cervicitis 834062854 Active 2017 Jenny Reynolds MD Attn: Accounting, [address] [facility], [place], [address], [facility] 8 09:10:57 Problem Notes None recorded. Procedures Surgical History Date Name Laterality Status Provider Name and Address Organization Details Recorded Time cholecystectomy completed Khai Pizarro MA [facility] 10/16/2018 15:06:03 tonsillectomy completed Khai Pizarro MA [facility] 10/16/2018 15:06:19 Imaging Results None recorded. Procedure [...] Not Avai lable Ortho Tri-Cyclen (28) 0.18 mg(7)/0.215mg( 7)/0.25 mg(7)-0.035 mg tablet Take 1 tablet every day by [...] Avai lable Vitals Date Recorded Body weight Systolic blood pressure Diastolic blood pressure Provider Name and Address Organization Details Last Updated DateTime 10/16/2018 161245.07 g 126 mm[Hg] 82 mm[Hg] Khai Pizarro MA [facility] 10/16/2018 14:59:31 Social History Question Answer Notes LastModified by Organizat ion Details LastModified Time Tobacco Smoking Status Current Every Day Smoker Khai Pizarro MA null, [facility] 10/16/2018 15:03:31 Do You Have An Advance Directive? No [facility] Information not available 10/16/2018 Is Blood Transfusion Acceptable In An Emergency? Yes Information not available 10/16/2018 What Is Your Level Of Caffeine Consumption? Moderate Information not available 10/16/2018 How Much Tobacco Do You Chew? None Information not available 10/16/2018 What Type Of Diet Are You Following? REGULAR Information not available 10/16/2018 Which Illicit Or Recreational Drugs Have You Used? Marijuana Information not available 10/16/2018 Education 12 Information no t available 10/16/2018 Are There Any Guns Present In Your Home? No Information not available 10/16/2018 Hard Of Hearing Or Deaf In One Or Both Ears? No Information not available 10/16/2018 Legally Blind In One Or Both Eyes? No Information no t available 10/16/2018 Live Alone Or With Others? With Others Information not available 10/16/2018 Marital Status Single [facility] Informatio n not available 10/16/2018 What Was [...] Much Tobacco Do You Smoke? 1 PPW Information not available 10/16/2018 General Stress Level High Information not available 10/16/2018 Do You Use Sunscreen Routinely? No Information not available 10/16/2018 How Many Years Have You Smoked Tobacco? 15 Information not available 10/16/2018 Sex: Unknown Functional Status Question Answer Note LastModified by Organizat ion Details LastModified Time What is your level of alcohol consumption? Occasional Information not available 10/16/2018 Are you currently employed? 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 None Information not available 10/16/2018 Mental Status None recorded. Family History Relationship Description Onset Age of this Age Resolved Age Notes LastModified by Organization Details LastModified Time Father No current problems or disability [email or web address] Not available 09/29 15:03:17 Mother No current problems or disability [facility] Not available 09/29 15:03:17 Medical History Condition Response Other N High Blood Pressure N Breast Cancer N Thyroid Problems N Kidney or Bladder Problems N GI Problems N Depression N Blood Clots N Lung Disease N Acne N Breast Problem N Eating Disorder N Anemia N Anesthesia Complications N Headaches/Migraines N Anxiety Disorder N Diabetes N Ovarian Cancer N Muscle, Joint, or Bone Problems N Blood Transfusions N Seizures/Epilepsy N Polyps N Infertility N Acid Reflux (GERD) N Cancer N Abuse/Domestic Violence N Asthma N Endometriosis N High Cholesterol N Hepatitis N Liver Disease N Heart Disease N Pre-Eclampsia N Osteoporosis [...] Recorded Time HPV9 10/16/2018 completed Not [facility] 11/16/2019 02:41:28 Past Encounters Encounter ID Performer Location Encounter Start Date Encounter Closed Date Diagnosis/Indication Diagnosis SNOMED-CT Code Diagnosis ICD10 Code Diagnosis Note [id number] MD Lorena Pompa (CARD GRINDER) [address] [place] [phone] 10/16/2018 14:41:44 10/16/2018 16:37:27 Gynecologic examination 12814653 Z01.419 Age appropriat e counseling done. Venereal d isease screening 437514839 Z11.3 Z20.2 Obesity 357543217 E66.9 Counseled About weight loss, diet and excercise. Advised patient to f/u with straightening press operator helper. Family darinel nning surveillance 494075801 Z30.09 Counseled patient about different forms of [...] is in office. Active or passive immunization 697495720 Z23 Health Concerns Section Related Observation LastModified by Organization Detai ls LastModified Time None Recorded Concern Status LastModified by Organization Details LastModified Time None Recorded Advance Directives Directive N: Payers Encounter Date Sequence Insurance Name Policy Number Policy Pedraza Covered Member ID Pedraza Member ID Guarantor Name 10/16/2018 1 [facility] (MEDICAID HMO) [facility] Dede Lawton [id number] Dede Lawton Notes Date Note Type Note [...] 5 years. Jenny Reynolds MD Attn: Accounting,[address] [place], [address], [place] [facility] 10/16/2018 15:42:32 OBGyn Episode No OBEpisode recorded.
[2025-04-01 11:43] VITALS: BP 136/90; PULSE 89; RESP 19; O2SAT 99
--- NOTE | 2025-04-01 12:31 | ED_ITS ---
HPI - General Adult General Chief complaint: Wound/Laceration Stated complaint: L INNER THIGH ?BITE SWELLING Time Seen by Provider: 04/01/25 12:04 History of Present Illness HPI narrative: 39-year-old female present to the emergency department for evaluation for a wound on her left medial thigh. Patient suspects that she does have an insect bite to that location. Patient 1st noticed the pain yesterday but states the pain has worsened. Patient does have a prior history of boils but states this felt different. Patient did not see the initial bug bite but just suspected it was a bug bite due to the wound having a central location of tenderness. Related Data Allergies Allergy/AdvReac Type Severity Reaction Status Date / Time No Known Allergies Allergy Verified 04/01/25 11:37 Review of Systems Review of Systems: All systems reviewed & are unremarkable except as noted in HPI and below PMFSH Past Medical History Medical History (Updated 04/01/25 @ 12:34 by Jasvir Chadwick MD) No active medical problems Social History Social History (Updated 11/30/24 @ 22:49 by Madison Rachel PA-C) Substance use: never Exam Narrative: APPEARANCE: Well appearing, no pain, no distress, well-nourished. HEAD: normocephalic, atraumatic. EYES: PERRLA/EOMI, conjunctivae clear. NOSE: Normal no drainage EARS:TMS clear with good light reflex. THROAT: Pharynx clear, no exudate. NECK: Supple. No adenopathy, no masses. RESPIRATORY: Airway patent, respirations nonlabored. Clear to auscultation bilaterally, no rales, rhonchi, wheezing. CARDIOVASCULAR: Regular rate and rhythm without murmurs rubs or gallops. ABDOMINAL: Soft, nontender, nondistended, normal bowel sounds MUSCULOSKELETAL: Moves all extremities. Strength/ROM intact, No edema, No calf tenderness. NEURO: Alert. Cranial nerves II through XII intact. Good gait. Good coordination SKIN: Warm, dry. Normal Color Bedside ultrasound: No abscess amenable to drainage by bedside ultrasound Course Vital Signs Vital signs: Vital Signs Pulse Rate 89 04/01/25 11:43 Respiratory Rate 19 04/01/25 11:43 Blood Pressure 136/90 04/01/25 11:43 Pulse Oximetry 99 04/01/25 11:43 Oxygen Delivery Room Air 04/01/25 11:43 Pulse Rate 89 06/03/25 11:43 Respiratory Rate 19 04/01/25 11:43 Blood Pressure 136/90 04/01/25 11:43 Pulse Oximetry 99 04/01/25 11:43 Oxygen Delivery Room Air 04/01/25 11:43 Medical Decision Making MDM Narrative Medical decision making narrative: 39-year-old female history of boils present to the emergency department for evaluation for a worsening area of tenderness on her left medial thigh with a central location of tenderness. I do suspect a of all vaping abscess rather than an insect bite. Bedside ultrasound showed no abscess amenable to drainage. Patient had has no known allergies. Patient will be started on Bactrim. First dose of Bactrim was provided emergency department. Patient was advised to do warm compresses. Differential Diagnosis Differential Diagnosis: Bug bite, blood reaction, cellulitis, abscess Vital Signs Vital Signs: Vital Signs Pulse Rate 89 04/01/25 11:43 Respiratory Rate 19 04/01/25 11:43 Blood Pressure 136/90 04/01/25 11:43 Pulse Oximetry 99 04/01/25 11:43 Oxygen Delivery Room Air 04/01/25 11:43 Pulse Rate 89 04/01/25 11:43 Respiratory Rate 19 04/01/25 11:43 Blood Pressure 136/90 04/01/25 11:43 Pulse Oximetry 99 04/01/25 11:43 Oxygen Delivery Room Air 04/01/25 11:43 Discharge Plan Discharge Clinical Impression: Abscess Patient Disposition: Home Condition: Stable Instructions: Antibiotic Form, Abscess (ED) Additional Instructions: Antibiotic as directed until completed. Have close follow-up with your primary care physician. Wound care as directed. Patient Language: Belgian Prescriptions: New sulfamethoxazole-trimethoprim [Bactrim DS] 800-160 mg tablet 1 tablet PO Q12H 7 Days Qty: 14 0RF No Action hydrocortisone 1 % cream 1 applic topical TID PRN (Reason: itching) Qty: 28.35 0RF loratadine 10 mg tablet 10 mg PO DAILY Qty: 30 0RF albuterol sulfate [Ventolin HFA] 90 mcg/actuation HFA aerosol inhaler 2 puff inhalation QID PRN (Reason: shortness of breath or wheezing) Qty: 8.5 0RF prednisone 20 mg tablet 40 mg PO DAILY 4 Days Qty: 8 0RF Follow-up/Referrals: UNKNOWN,DOCTOR [Primary Care Provider] -
[2025-04-01] MEDS: SULFAMETHOXAZOLE/TRIMETHOPRIM 800/160 MG DS TABLET 1 TAB PO (12:40)
== END 2025-04-01 12:46 | disposition home or self-care (01) ==
PROVIDERS: Emergency Provider Emergency Medicine
DX: L02.416 Cutaneous abscess of left lower limb (principal)
CPT/HCPCS: 99283; A9270

== ENCOUNTER 2025-04-06 16:46 | Inpatient (IN) | payer OTHER, SELFPAY ==
--- NOTE | ~2025-04-06 | US_ITS ---
Left medial upper thigh ULTRASOUND (Doppler ultrasound interrogation techniques used as needed for th is exam.) Ordering provider: Cabrera Leal APRN History: . Y . Comparison: None. FINDINGS/impression: Irregularly shaped complex area in the left medial upper thigh measuring 2.7 x 4 x 1.1 cm which may b e inflammatory in nature versus a small hematoma.Clinical correlation and Follow-up advised. Reviewed, dictated and finalized at location A.
--- OUTSIDE RECORDS SUMMARY | 2025-04-06 16:49 | XMS_ITS | Data Portability ---
Author Organization [facility] Address [address] [place] [address] Assessment No assessment recorded. Plan of Treatment Reminders Order Date Submit Date Provider Last Modified By Organization Details Last Modified Time Details Appointments None recorded. Lab bacterial vaginosis + vaginitis panel, vaginal 2017 018 [facility], [address] [place] [address], [address], [place], [address], 8 09:07:41 HSV (1+2) DNA, qual, PCR, unspecifie d specimen 2017 018 [facility], [address] [place] [address], [address], [place], [address], 8 09:07:42 pap, IG + HPV, cervical 2017 018 [facility], [address] [place] [address], [address], [place], [address], 8 14:13:49 urinalysis , dipstick 2017 018 [email or web address] In-Office Order, Internal Use Only DO Not Attach Compendium DO Not Attach Compendium, Do Not Delete/merge, [id number] 8 15:15:15 test, urine 2017 018 [email or web address] In-Office Order, Internal Use Only DO Not Attach Compendium DO Not Attach Compendium, Do Not Delete/merge, [id number] 8 15:15:15 hepatitis panel (A+B+C), acute, serum 2017 [facility], [address], [address], [place], [address], 8 20:09:19 hepatitis B surface Ab, qualitativ e, serum 2017 [facility], [address] [facility] [address] [facility], [address], [place], [address], 8 20:09:20 HIV 1+2 AB + HIV 1 p24 Ag, qualitativ e immunoassa y, serum 2017 [facility], [address] [facility][note 3], [place], [address], 8 20:09:21 treponema pallidum screen, serum, reflex confirmati on 2017 [facility] Patient Can Go To The Location Of Their Choice, [id number] 8 20:09:20 HSV 2 IgG Ab, QN, IA, serum 2017 [facility]), Patient Can Go To The Location Of Their Choice, [id number] 8 20:09:21 Referral None recorded. Procedures None recorded. Surgeries None recorded. Imaging None recorded. Medication Orders Tablet 28 mg iron-[address] [id number], [address], [place], [id number], 8 15:19:29 Mirena 21 mcg/24 hr (up to 8 years) 52 mg intrauteri ne device 2017 [email or web address] [facility] #[id number], [address], [place], [id number], 9 14:00:52 Ortho Tri-Cyclen (28) 0.18 mg(7)/0.21 5mg(7)/0.2 5 mg(7)-0.03 5 mg tablet 2017 018 [facility] #[id number] [address] [place], [place], [id number], 8 15:35:46 Patient TargetsNo targets recorded. Patient Instructions Encounter Date Encounter Id Patient Instructions Last Modified By Organization Details Last Modified Time 10/16/2018 [id number] When You Want to Lose Weight: Care [...] DO Not Attach Compendium, Do Not Delete/merge, [id number] 10/16/2018 15:08:44 10/16/20 18 10/16/2018 urina lysis , dipst ick Leukocytes Negati ve Not Available In-Office Order Internal Use Only DO Not Attach Compendium DO Not Attach Compendium, Do Not Delete/merge, [id number] 10/16/2018 15:08:43 10/16/20 18 10/16/2018 urina lysis , dipst ick Nitrite negati ve Not Available In-Office Order Internal Use Only DO Not Attach Compendium DO Not Attach Compendium, Do Not Delete/merge, [id number] 10/16/2018 15:08:43 10/16/20 18 10/16/2018 urina lysis , dipst ick Urobilinogen .2 Not Available In-Of fice Order Internal Use Only DO Not Attach Compendium DO Not Attach Compendium, Do Not Delete/merge, [id number] 10/16/2018 15:08:43 10/16/20 18 10/16/2018 urina lysis , dipst ick Protein Negati ve Not Available In-Office Order Internal Use Only DO Not Attach Compendium DO Not Attach Compendium, Do Not Delete/merge, [id number] 10/16/2018 15:08:43 10/16/20 18 10/16/2018 urina lysis , dipst ick pH 6.0 Not Available In-Office Order Internal Use Only DO Not Attach Compendium DO Not Attach Compendium, Do Not Delete/merge, [id number] 10/16/2018 15:08:43 10/16/20 18 10/16/2018 urina lysis , dipst ick Blood Negati ve Not Available In-Office Order Internal Use Only DO Not Attach Compendium DO Not Attach Compendium, Do Not Delete/merge, [id number] 10/16/2018 15:08:43 10/16/20 18 10/16/2018 urina lysis , dipst ick Specific [place] 1.015 Not Available In-Off ice Order Internal Use Only DO Not Attach Compendium DO Not Attach Compendium, Do Not Delete/merge, [id number] 10/16/2018 15:08:43 10/16/20 18 10/16/2018 urina lysis , dipst ick Ketone Negati ve Not Available In-Office Order Internal Use Only DO Not Attach Compendium DO Not Attach Compendium, Do Not Delete/merge, [id number] 10/16/2018 15:08:43 10/16/20 18 10/16/2018 urina lysis , dipst ick Bilirubin Negati ve Not Available In-Office Order Internal Use Only DO Not Attach Compendium DO Not Attach Compendium, Do Not Delete/merge, [id number] 10/16/2018 15:08:43 10/16/20 18 10/16/2018 urina lysis , dipst ick Glucose Negati ve Not Available In-Office Order Internal Use Only DO Not Attach Compendium DO Not Attach Compendium, Do Not Delete/merge, [id number] 10/16/2018 15:08:43 10/16/20 18 10/17/2018 hepat itis panel (A+B+ C), acute , serum hep A Ab, IgM Negati ve negati ve Not Available [facility] ([facility]) [address] [facility], [place], [address], 10/17/2018 20:09:19 10/16/20 18 10/17/2018 hepat itis panel (A+B+ C), acute , serum HBsAg screen Negati ve negati ve Not Available [facility] ([facility]) [address] [facility], [place], [address], 10/17/2018 20:09:19 10/16/20 18 10/17/2018 hepat itis panel (A+B+ C), acute , serum hep B core Ab, IgM Negati ve negati ve Not Available [facility] ([facility]) [address] [facility], [place], [address], 10/17/2018 20:09:19 10/16/20 18 10/17/2018 hepat itis [...] ion test (5507 13). Not Available [facility] ([facility]) [address] [facility], [place], [address], 10/17/2018 20:09:19 10/16/20 18 10/17/2018 hepat itis B surfa ce Ab, quali tativ e, serum hep B surface Ab, qual Reacti ve Non React renetta: Incon siste nt with immun ity, less than 10 mIU/m L React renetta: Consi stent with immun ity, great er than 9.9 mIU/m L Not Available [facility] ([facility]) [address] [facility], [place], [address], 10/17/2018 20:09:20 10/16/20 18 10/17/2018 trepo nema palli dum scree n, serum , refle x confi rmati on T pallidum antibodies Negati ve negati ve Not Available [facility] ([facility]) [address] [facility], [place], [address], 10/17/2018 20:09:20 10/16/20 18 10/17/2018 HIV 1+2 AB + HIV 1 p24 Ag, quali tativ e immun oassa y, serum HIV screen 4TH generation wrfx Non Reacti ve non reacti ve Not Available [facility] ([facility]) [address] [facility], [place], [address], 10/17/2018 20:09:20 10/16/20 18 10/17/2018 HSV 2 [...] mario to HSV-2 . Not Available [facility] ([facility]) [address] [facility], [place], [address], 10/17/2018 20:09:21 10/16/20 18 10/18/2018 pap, IG [...] FOR INTER PRETA TION. Not Available [facility] ([facility]) [address] [facility], [place], [address], 10/18/2018 14:13:49 10/16/20 18 10/18/2018 pap, IG + HPV, cervi kacey specimen adequacy: Mariaa srivastava Satis facto ry for evalu ation . Endoc ervic al and/o r squam ous metap lasti c cells (endo cervi kacey compo nent) are prese nt. Parti ally obscu ring thick areas are prese nt. Not Available [facility] ([facility]) [address] [place], [address], 10/18/2018 14:13:49 10/16/20 18 10/18/2018 pap, IG + HPV, cervi kacey clinician provided ICD10: Mariaa srivastava Z01.4 19 Not Available [facility] ([facility]) [address] [place], [address], 10/18/2018 14:13:49 10/16/20 18 10/18/2018 pap, IG + HPV, cervi kacey performed by: Mariaa Keita rs, Cytot tiffanie srivastava (ASCP ) Not Available [facility] ([facility]) [address] [place], [address], 10/18/2018 14:13:49 10/16/20 18 10/18/2018 pap, IG + HPV, cervi kacey . . Not Available [facility] ([facility]) [address] [place], [address], 10/18/2018 14:13:49 10/16/20 18 10/18/2018 pap, IG [...] ts do occur . Not Available [facility] ([facility]) [address] [place], [address], 10/18/2018 14:13:49 10/16/20 18 10/18/2018 pap, IG + HPV, cervi kacey test methodology: Commen t This liqui d based ThinP rep(R ) pap test was salbador garcia with the use of an image guide dalia de la vega Not Available [facility] ([facility]) [address] [place], [address], 10/18/2018 14:13:49 10/16/20 18 10/18/2018 pap, IG + HPV, cervi kacey HPV aptima Negati ve negati ve This test detec ts fourt een high- risk HPV types (16/1 8/31/ 33/35 /39/4 5/ 51/52 /56/5 8/59/ 66/68 ) witho ut tiffaniee neeraj ation . Not Available [facility] ([facility]) [address] [place], [address], 10/18/2018 14:13:49 10/16/20 18 10/19/2018 bacte rial vagin osis + vagin itis panel , vagin al trich vag by TAI Negati ve negati ve Not Available [facility] ([facility]) [address] [place], [address], 10/24/2018 09:07:41 10/16/20 18 10/19/2018 bacte rial vagin osis + vagin itis panel , vagin al chlamydia trachomatis, TAI Positi ve negati ve abnormal Not Available [facility] ([facility]) [address] [place], [address], 10/24/2018 09:07:41 10/16/20 18 10/19/2018 bacte rial vagin osis + vagin itis panel , vagin al neisseria gonorrhoeae, TAI Negati ve negati ve Not Available [facility] ([facility]) [address] [place], [address], 10/24/2018 09:07:41 10/16/20 18 10/21/2018 bacte rial vagin osis + vagin itis panel , vagin al atopobium vaginae Modera te - 1 score Not Available [facility] ([facility]) [address] [place], [address], 10/24/2018 09:07:41 10/16/20 18 10/21/2018 bacte rial vagin osis + vagin itis panel , vagin al bvab 2 High - 2 score abnormal Not Available [facility] ([facility]) [address] [place], [address], 10/24/2018 09:07:41 10/16/20 18 10/21/2018 bacte rial [...] is not neces vivian. Not Available [facility] ([facility]) [address] [facility], [place], [address], 10/24/2018 09:07:41 10/16/20 18 10/24/2018 bacte rial vagin osis + vagin itis panel , vagin al martín albicans, TAI Negati ve negati ve Not Available [facility] ([facility]) [address] [facility], [place], [address], 10/24/2018 09:07:41 10/16/20 18 10/24/2018 bacte rial [...] is not nectr vivian. Not Available [facility] ([facility]) [address] [facility], [place], [address], 10/24/2018 09:07:41 10/16/20 18 10/22/2018 HSV (1+2) DNA, qual, PCR, unspe cifie d speci men hsv 1 TAI Negati ve negati ve Not Available [facility] ([facility]) [address] [place], [address], 10/24/2018 09:07:42 10/16/20 18 10/22/2018 HSV (1+2) DNA, qual, PCR, unspe cifie d speci men hsv 2 TAI Negati ve negati ve Not Available [facility] ([facility]) [address] [place], [address], 10/24/2018 09:07:42 Result Notes None recorded. Problems Name Problem SNOMED Code Status Onset Date Resolution Date Notes Provider Name and Address Organization Details Recorded Time Genital herpes simplex 50919915 Active 2017 Jenny Reynolds MD Attn: Accounting, [address] [facility], [place], [address], [facility] 8 13:37:04 Bacterial vaginosis 233918154 Active 2017 Jenny Reynolds MD Attn: Accounting, [address] [place], [address], [facility] 8 09:10:42 Chlamydial cervicitis 211656634 Active 2017 Jenny Reynolds MD Attn: Accounting, [address] [facility], [place], [address], [facility] 8 09:10:57 Problem Notes None recorded. Procedures Surgical History Date Name Laterality Status Provider Name and Address Organization Details Recorded Time cholecystectomy completed Khai Pizarro MA [facility] 10/16/2018 15:06:03 tonsillectomy completed Khai Pizarro MA [facility] 10/16/2018 15:06:19 Imaging Results None recorded. Procedure [...] Address Organization Details Last Updated DateTime 10/16/2018 032853.07 g 126 mm[Hg] 82 mm[Hg] Khai Pizarro MA [facility] 10/16/2018 14:59:31 Social History Question Answer Notes LastModified by Organizat ion Details LastModified Time Tobacco Smoking Status Current Every Day Smoker Khai Pizarro MA null, [facility] 10/16/2018 15:03:31 Do You Have An Advance Directive? No josiah b. thomas Information not available 10/16/2018 Is Blood Transfusion [...] Information not available 10/16/2018 Marital Status Single josiah b. 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 None Information not available 10/16/2018 Mental Status None recorded. Family History Relationship Description Onset Age of this Age Resolved Age Notes LastModified by Organization Details LastModified Time Father No current problems or disability [email or web address] Not available 09/29 15:03:17 Mother No current problems or disability [facility] Not available 09/29 15:03:17 Medical History Condition Response Other N High Blood Pressure N Breast Cancer N Thyroid Problems N Kidney or Bladder Problems N Lung Disease N Depression N Blood Clots N GI Problems N Acne N Breast Problem N Eating Disorder N Anemia N Anesthesia Complications N Headaches/Migraines N Ovarian Cancer N Diabetes N Anxiety Disorder N Muscle, Joint, or [...] Recorded Time HPV9 10/16/2018 completed Not Available [facility] 11/16/2019 02:41:28 Past Encounters Encounter ID Performer Location Encounter Start Date Encounter Closed Date Diagnosis/Indication Diagnosis SNOMED-CT Code Diagnosis ICD10 Code Diagnosis Note [id number] MD Lorena Pompa ([employer] PRO[employer] MANAGER) [address] [place] [phone] 10/16/2018 14:41:44 10/16/2018 16:37:27 Gynecologic examination 67992486 Z01.419 Age appropriat e counseling done. Venereal d isease screening 564308093 Z11.3 Z20.2 Obesity 571956779 E66.9 Counseled About weight loss, diet and excercise. 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 Family darinel nning surveillance 292598711 Z30.09 Counseled patient about different forms of [...] is in office. Active or passive immunization 577266298 Z23 Health Concerns Section Related Observation LastModified by Organization Detai ls LastModified Time None Recorded Concern Status LastModified by Organization Details LastModified Time None Recorded Advance Directives Directive N: Payers Encounter Date Sequence Insurance Name Policy Number Policy Pedraza Covered Member ID Pedraza Member ID Guarantor Name 10/16/2018 1 [employer] (MEDICAID HMO) [facility] Dede Lawton [id number] Dede Lawton Notes Date Note Type Note [...] 5 years. Jenny Reynolds MD Attn: Accounting,[address] [place], [address], [place] - [facility] 10/16/2018 15:42:32 OBGyn Episode No OBEpisode recorded.
--- NOTE | 2025-04-06 17:42 | ED.SKABFB ---
HPI - Skin/Abscess/Foreign Bdy General Chief complaint: Skin/Abscess/Foreign Body <Carmen Garcia PA-C - Last Filed: 04/06/25 18:35> Stated complaint: abscess L. thigh <Carmen Garcia PA-C - Last Filed: 04/06/25 18:35> Time Seen by Provider: 04/06/25 17:09 <Carmen Garcia PA-C - Last Filed: 04/06/25 18:35> History of Present Illness HPI narrative: 39-year-old female presents to the emergency department it with concerns for an abscess to her left thigh. Patient states 6 days ago she noticed a tender and red area to her left upper inner thigh. She came to our ED on 04/01/2025 and was started on Bactrim with concerns for developing abscess. There was no abscess amenable to drainage on exam feel ultrasound. The patient states she has been using warm compresses and taking her Bactrim as prescribed, however the area has continued to become larger, more red and more painful which prompted her to come into the ED today. She denies any drainage, fevers. <Carmen Garcia PA-C - Last Filed: 04/06/25 18:35> Related Data Allergies/Adverse reactions: Allergies Allergy/AdvReac Type Severity Reaction Status Date / Time No Known Allergies Allergy Verified 04/06/25 16:47 <Carmen Garcia PA-C - Last Filed: 04/06/25 18:35> Review of Systems Review of Systems: All systems reviewed & are unremarkable except as noted in HPI and below <Carmen Garcia PA-C - Last Filed: 04/06/25 18:35> [facility] Past Medical History Medical History: Medical History No active medical problems <IRVING Cid Last Filed: 04/06/25 18:35> Social History Social History: Social History Substance use: never <Carmen Garcia PA-C - Last Filed: 04/06/25 18:35> Exam Narrative: GENERAL: Well-appearing, well-nourished, and in no acute distress. HEAD: Normocephalic, atraumatic. EYES: EOMI. ENT: Nares clear, no rhinorrhea or epistaxis. Mucous membranes moist. NECK: Supple. CHEST: Clear to auscultation. No respiratory distress. HEART: Regular rate and rhythm. No murmur heard. Normal peripheral pulses. EXTREMITIES: Normal range of motion SKIN: Approximately 10x11 cm area of induration to the left upper inner thigh with tenderness, overlying warmth. Difficult to evaluate erythema due to skin color. There is a small approximately 2mm central area of fluctuance with no spontaneous drainage. No vesicles or crepitus. No extension into the inguinal region NEURO: No focal deficits. Alert and oriented x3 <Carmen Garcia PA-C - Last Filed: 04/06/25 18:35> Course BLEACHING MACHINE OPERATOR/PA Physician Supervision This visit was performed by both a physician and an APC. I performed all aspects of the MDM as documented. <Ran Hutchinson MD - Last Filed: 04/06/25 18:44> Vital Signs Vital signs: Vital Signs Temperature 98 F 04/06/25 17:43 Pulse Rate 96 04/06/25 17:43 Respiratory Rate 18 04/06/25 17:43 Blood Pressure 142/47 H 04/06/25 17:43 Pulse Oximetry 99 04/06/25 17:43 Oxygen Delivery Room Air 04/06/25 17:43 Temperature 98 F 04/06/25 17:43 Pulse Rate 96 04/06/25 17:43 Respiratory Rate 18 04/06/25 17:43 Blood Pressure 142/47 H 04/06/25 17:43 Pulse Oximetry 99 04/06/25 17:43 Oxygen Delivery Room Air 04/06/25 17:43 <Carmen Garcia PA-C - Last Filed: 04/06/25 18:35> Vital Signs Temperature 98 F 04/06/25 17:43 Pulse Rate 96 04/06/25 17:43 Respiratory Rate 18 04/06/25 17:43 Blood Pressure 142/47 H 04/06/25 17:43 Pulse Oximetry 99 04/06/25 17:43 Oxygen Delivery Room Air 04/06/25 17:43 Temperature 98 F 04/06/25 17:43 Pulse Rate 96 04/06/25 17:43 Respiratory Rate 18 04/06/25 17:43 Blood Pressure 142/47 H 04/06/25 17:43 Pulse Oximetry 99 04/06/25 17:43 Oxygen Delivery Room Air 04/06/25 17:43 <Ran Hutchinson MD - Last Filed: 04/06/25 18:44> MDM - Skin/Abscess/Foreign Bdy MDM Narrative Medical decision making narrative: 39-year-old female presents emergency department with worsening infection to her left upper inner thigh that started 6 days ago. Patient has been on Bactrim for 5 days, however areas becoming more tender and larger despite compliance with Bactrim. Exam is notable for the above. Vitals are stable. Patient is afebrile and nontoxic appearing. CBC with no leukocytosis. Chemistries with mildly elevated creatinine of 1.07, fluids provided. CRP is elevated at 3.4. Lactic is within normal limits. Bedside ultrasound shows a very small fluid collection consistent with the 2 mm area of fluctuance. I did discuss finding this area, however patient declined and states she would like to trial another antibiotic. Shared decision making regarding disposition. Discussed changing p.o. antibiotics and discharged home with close follow-up versus admission for failure of outpatient antibiotics. Patient is requesting admission. She was started on vancomycin in the ED and blood cultures are pending. I discussed the case with the hospitalist BLEACHING MACHINE OPERATOR, Murali, who agrees to admission to Med/surg. <Carmen Garcia PA-C - Last Filed: 04/06/25 18:35> Lab Data Result diagrams: 04/06/25 17:50 04/06/25 17:50 <Carmen Garcia PA-C - Last Filed: 04/06/25 18:35> Labs: Lab Results 04/06/25 Range/Units 17:50 WBC 8.7 (4.5-10.0) K/mm3 RBC 4.40 (4.2-5.4) M/mm3 Hgb 12.8 (12.0-15.0) g/dL Hct 37.5 (37.0-47.0) % MCV 85.2 (80-100) fl MCH 29.1 (26-34) pg MCHC 34.1 (32-36) g/dl RDW 12.1 (11.5-14.5) % Plt Count 389 H (150-375) k/mm3 MPV 9.9 (7.4-10.4) fl Immature Gran % (Auto) 0.5 (0-0.5) % Neut % (Auto) 69.5 (45.5-73.1) % Lymph % (Auto) 21.2 (18.3-44.2) % [place] % (Auto) 7.0 (2.6-8.5) % Eos % (Auto) 1.2 (0-4.4) % Baso % (Auto) 0.6 (0.2-1.2) % Lymph # (Auto) 1.84 (0.9-3.2) K/mm3 [place] # (Auto) 0.6 (0.1-0.6) K/mm3 Eos # (Auto) 0.1 (0-0.3) K/mm3 Baso # (Auto) 0.1 (0.0-0.1) K/mm3 Abs Immat Gran (auto) 0.04 H (0.00-0.031) K/mm3 Absolute Neuts (auto) 6.0 (1.3-6.7) K/mm3 Absolute Nucleated RBC 0.000 (0.0-0.012) K/mm3 Nucleated RBC % 0.0 (0.0-0.2) % ESR Pending Sodium 136 L (137-145) mmol/L Potassium 4.1 (3.4-5.0) mmol/L Chloride 102 (98-107) mmol/L Carbon Dioxide 25 (22-30) mmol/L Anion Gap 9 (4-12) mmol/L BUN 11 (7-17) mg/dL Creatinine 1.07 H (0.7-1.0) mg/dL Estim Creat Clear Calc 111 ml/min Estimated GFR 58 L (59 - ) Glucose 119 H (65-110) mg/dL Lactic Acid 1.7 (0.7-2.0) mmol/L Calcium 9.4 (8.4-10.2) mg/dL C-Reactive Protein 3.4 H (<1.0) mg/dL Procalcitonin Pending <Carmen Garcia PA-C - Last Filed: 06/08/25 18:35> Lab Results 04/06/25 Range/Units 17:50 WBC 8.7 (4.5-10.0) K/mm3 RBC 4.40 (4.2-5.4) M/mm3 Hgb 12.8 (12.0-15.0) g/dL Hct 37.5 (37.0-47.0) % MCV 85.2 (80-100) fl MCH 29.1 (26-34) pg MCHC 34.1 (32-36) g/dl RDW 12.1 (11.5-14.5) % Plt Count 389 H (150-375) k/mm3 MPV 9.9 (7.4-10.4) fl Immature Gran % (Auto) 0.5 (0-0.5) % Neut % (Auto) 69.5 (45.5-73.1) % Lymph % (Auto) 21.2 (18.3-44.2) % [place] % (Auto) 7.0 (2.6-8.5) % Eos % (Auto) 1.2 (0-4.4) % Baso % (Auto) 0.6 (0.2-1.2) % Lymph # (Auto) 1.84 (0.9-3.2) K/mm3 [place] # (Auto) 0.6 (0.1-0.6) K/mm3 Eos # (Auto) 0.1 (0-0.3) K/mm3 Baso # (Auto) 0.1 (0.0-0.1) K/mm3 Abs Immat Gran (auto) 0.04 H (0.00-0.031) K/mm3 Absolute Neuts (auto) 6.0 (1.3-6.7) K/mm3 Absolute Nucleated RBC 0.000 (0.0-0.012) K/mm3 Nucleated RBC % 0.0 (0.0-0.2) % ESR Pending Sodium 136 L (137-145) mmol/L Potassium 4.1 (3.4-5.0) mmol/L Chloride 102 (98-107) mmol/L Carbon Dioxide 25 (22-30) mmol/L Anion Gap 9 (4-12) mmol/L BUN 11 (7-17) mg/dL Creatinine 1.07 H (0.7-1.0) mg/dL Estim Creat Clear Calc 111 ml/min Estimated GFR 58 L (59 - ) Glucose 119 H (65-110) mg/dL Lactic Acid 1.7 (0.7-2.0) mmol/L Calcium 9.4 (8.4-10.2) mg/dL C-Reactive Protein 3.4 H (<1.0) mg/dL Procalcitonin Pending <Ran Hutchinson MD - Last Filed: 04/06/25 18:44> Discharge Plan Discharge Clinical Impression: Cellulitis Qualifiers: Site of cellulitis: extremity Site of cellulitis of extremity: lower extremity Laterality: left Qualified Code(s): L03.116 - Cellulitis of left lower limb <Carmen Garcia PA-C - Last Filed: 04/06/25 18:35> Patient Disposition: Still a Patient <Carmen Garcia PA-C - Last Filed: 04/06/25 18:35> Condition: Stable <Carmen Garcia PA-C - Last Filed: 04/06/25 18:35> Instructions: Antibiotic Form <Carmen Garcia PA-C - Last Filed: 04/06/25 18:35> Patient Language: Gibraltarian <Carmen Garcia PA-C - Last Filed: 04/06/25 18:35> Prescriptions: No Action hydrocortisone 1 % cream 1 applic topical TID PRN (Reason: itching) Qty: 28.35 0RF loratadine 10 mg tablet 10 mg PO DAILY Qty: 30 0RF sulfamethoxazole-trimethoprim [Bactrim DS] 800-160 mg tablet 1 tablet PO Q12H 7 Days Qty: 14 0RF albuterol sulfate [Ventolin HFA] 90 mcg/actuation HFA aerosol inhaler 2 puff inhalation QID PRN (Reason: shortness of breath or wheezing) Qty: 8.5 0RF prednisone 20 mg tablet 40 mg PO DAILY 4 Days Qty: 8 0RF <Carmen Garcia PA-C - Last Filed: 04/06/25 18:35> Follow-up/Referrals: PHYSICIAN,COMMUNITY SERVICE MANAGER [Primary Care Provider] - <Carmen Garcia PA-C - Last Filed: 04/06/25 18:35>
[2025-04-06 17:43] VITALS: BP 142/47; PULSE 96; RESP 18; TEMP 36.6; O2SAT 99
[2025-04-06] MEDS: HYDROcodone/acetaminophen (*CRX) 5-325 MG TABLET 1 TAB PO (17:43)
[2025-04-06 18:00] LABS: Basophils Absolute Auto 0.1 K/mm3 (0.0-0.1); Basophils Percent Auto 0.6 % (0.2-1.2); Eosinophils Absolute Auto 0.1 K/mm3 (0-0.3); Eosinophils Percent Auto 1.2 % (0-4.4); Hematocrit 37.5 % (37.0-47.0); Hemoglobin 12.8 g/dL (12.0-15.0); Immature Granulocyte Absolute 0.04 K/mm3 (0.00-0.031); Immature Granulocyte Percent A 0.5 % (0-0.5); Lymphocytes Absolute Auto 1.84 K/mm3 (0.9-3.2); Lymphocytes Percent Auto 21.2 % (18.3-44.2); Mean Corpuscular HGB Conc 34.1 g/dl (32-36); Mean Corpuscular Hemoglobin 29.1 pg (26-34); Mean Corpuscular Volume 85.2 fl (80-100); Mean Platelet Volume 9.9 fl (7.4-10.4); Monocytes Absolute Auto 0.6 K/mm3 (0.1-0.6); Neutrophils Percent Auto 69.5 % (45.5-73.1); Platelet Count Result 389 k/mm3 (150-375); Red Cell Distribution Width 12.1 % (11.5-14.5); White Blood Count 8.7 K/mm3 (4.5-10.0)
[2025-04-06 18:08] LABS: Lactic Acid Reflex 1.7 mmol/L (0.7-2.0)
[2025-04-06 18:12] LABS: Anion Gap 9 mmol/L (4-12); Blood Urea Nitrogen 11 mg/dL (7-17); CRP 3.4 mg/dL (<1.0); Calcium 9.4 mg/dL (8.4-10.2); Carbon Dioxide 25 mmol/L (22-30); Chloride 102 mmol/L (98-107); Estimated CRCL calculation 111 ml/min; Estimated Glomerular Filt Rate 58; Glucose 119 mg/dL (65-110); Potassium 4.1 mmol/L (3.4-5.0); Sodium 136 mmol/L (137-145)
[2025-04-06] MEDS: SODIUM CHLORIDE 0.9% IV 1,000 ML 999 ML IV CONT (18:26)
--- NOTE | 2025-04-06 18:32 | PM.IMHP ---
H&P: HPI History of Present Illness Date/Time: 04/06/25 18:32 Chief Complaint: Left thigh wound/infection Narrative: This is a 39 year old female patient who is admitted to the hospital for left inner thigh cellulitis/abscess with failure of outpatient antibiotics. Patient stated she noted a small knot on her left inner thigh on 03/30/25. This area became more swollen each day and by 04/01/25 she was having difficulty walking because her legs would rub together and cause increased pain. She came to ER on 04/01 and was started on Bactrim for what she felt may have been a bug bite. Despite taking Bactrim her swelling and pain have continued to increase each day. Today she returned to ER and the site was significantly larger and more swollen. ER performed bedside ultrasound and did not believe there was enough pocket of collected fluid to be worth I&D effort. Patient declined attempt at I&D based on ER provider only finding a dime sized area of fluid collection. Patient was started on IV Vancomycin with pharmacy to dose. Labs indicate a very mild RIDGE and she received one liter of IV fluids in ER. Patient admitted for IV antibiotics. On my exam I am concerned for much deeper abscess so formal Ultrasound of soft tissue left leg ordered and General Surgery to be consulted in AM. We will have patient NPO after 3 am except for meds/sips in case Surgery wants to take patient to OR for drainage/washout. Review of Systems Review of Systems: All systems reviewed & are unremarkable except as noted in HPI and below PMFSH Past Medical History Medical History No active medical problems Social History Social History Smoking packs per day: 0.12 Smoking cigarettes per day: 2.4 Years smoked: 20 Smoking pack-years: 2.40 Smoking status: Current every day smoker Tobacco type: cigarettes Alcohol intake: never Substance use: current Substance use type: marijuana Last use: 04/06 Do You Feel Safe in your Home?: Yes Lack of Transportation: No Lack of Food: Never True Current Housing: I Have Housing Concerned About Future Housing: No Difficulty Paying Gas/Electric Bills: YES Difficulty Paying for Meds: No Currently Unemployed: No Education: High School Diploma/GED Difficulty w/ Childcare or Family Care: No Spiritual care concerns: No Meds Home Medications and Allergies Home Medications ?Medication ?Instructions ?Recorded ?Confirmed ?Type albuterol sulfate 90 mcg/actuation 2 puff inhalation QID PRN 11/30/24 04/06/25 Rx aerosol inhaler (Ventolin HFA) shortness of breath or wheezing #8.5 grams sulfamethoxazole 800 1 tablet PO Q12H 7 days #14 tabs 04/01/25 04/06/25 Rx mg-trimethoprim 160 mg tablet (Bactrim DS) Allergies Allergy/AdvReac Type Severity Reaction Status Date / Time No Known Allergies Allergy Verified 04/06/25 16:47 Vital Signs Vital Signs - 24 hr 04/06/25 17:43 Temperature 36.6 C Pulse Rate 96 Respiratory Rate 18 Blood Pressure 142/47 H Pulse Oximetry 99 Oxygen Delivery Room Air Exam Narrative: GENERAL: Well-appearing, Obese, and in no acute distress. HEENT: Normocephalic, atraumatic. PERRL. EOMI. CHEST: Clear to auscultation. No respiratory distress. HEART: Regular rate and rhythm. Normal peripheral pulses. EXTREMITIES: Normal range of motion SKIN: Approximately 10x11 cm area of induration to the left upper inner thigh with tenderness, overlying warmth. There appears to be several tracts of increased swelling similar to hidradenitis. Very tender to touch and some swelling outside the marked lines is noted (extending distally) NEURO: No focal deficits. Alert and oriented x3 H&P: Results Labs Labs: Short CBC 04/06/25 Range/Units 17:50 WBC 8.7 (4.5-10.0) K/mm3 Hgb 12.8 (12.0-15.0) g/dL Hct 37.5 (37.0-47.0) % Plt Count 389 H (150-375) k/mm3 BMP 04/06/25 17:50 Sodium 136 L Potassium 4.1 Chloride 102 Carbon Dioxide 25 BUN 11 Creatinine 1.07 H Glucose 119 H Calcium 9.4 Pulse Oximetry SpO2 results: 99% on room air Interpretation: No need for supplemental oxygenation at this time Assessment and Plan Assessment and plan (1) Cellulitis: Qualifiers: Laterality: left Site of cellulitis: extremity Site of cellulitis of extremity: lower extremity Qualified Code(s): L03.116 - Cellulitis of left lower limb Code(s): L03.90 - Cellulitis, unspecified Status: Acute Assessment and Plan: -left thigh cellulitis with spreading of induration and swelling despite outpatient Bactrim started on 04/01/25 -Failure of outpatient antibiotics -Patient declined I&D of small fluctuant area in ER -ER started IV vancomycin which will be continued, pharmacy to dose -My exam concerning for deeper abscess like hydradenitis picture -Order formal Ultrasound to assess for deeper abscess -Referral to General Surgery to be called in AM (2) RIDGE (acute kidney injury): Code(s): N17.9 - Acute kidney failure, unspecified Status: Acute Assessment and Plan: -Patient has been on Bactrim since 04/01/25 -Labs today show eGFR 58 with mildly increased Cr of 1.07 vs 0.80 previously -S/P one liter IV fluids in ER -Heart Healthy diet -Repeat labs in AM Quality If No VTE Prophylaxis Answer both mechanical and pharmacologic: Reason no mechanical VTE proph: low risk/not indicated Reason no pharmacologic proph: low risk/not indicated and medical contraindication (Surgery consulted) Hospitalist MIPS Advance Care Plan I have confirmed that the patient's Advanced Care Plan is present, code status is documented, or surrogate decision maker is listed in patient medical record.: Yes Medication Reconciliation I have utilized all available resources to obtain, update and review the patients current medications (includes all prescriptions, OTC, herbals, cannabis, and nutritional supplements).: Yes
[2025-04-06 19:41] LABS: Erythrocyte Sedimentation Rate 45 mm/hr (0-20)
--- NOTE | 2025-04-06 19:45 | ADMGEN ---
This patient, Aylin Lawton, was admitted to Medical Room 341-01. Patient/family oriented to hospital policies and general routines including ID bracelet, bed and alarms, visiting hours, pain management, procedures, bathroom and other care routines, personal items, smoking policy, room service/diet, and visiting hours. Information on how to activate the Rapid Response Team has been discussed. Patient/Family are encouraged to report perceived risks to care and to ask questions if they do not understand what they are told or what they should do.
[2025-04-06] MEDS: VANCOMYCIN 1,500 MG/NS 500 ML 1,500 MG/500 ML BAG 250 MG IVPB (20:18)
[2025-04-06 20:35] LABS: Creatine Kinase 82 U/L (30-135)
[2025-04-06 21:44] VITALS: BP 112/83; PULSE 72; RESP 18; TEMP 36.7; O2SAT 100
[2025-04-07] MEDS: HYDROcodone/acetaminophen (*CRX) 5-325 MG TABLET 1 TAB PO ×5 (00:57→19:28)
[2025-04-07 05:47] LABS: Basophils Absolute Auto 0.1 K/mm3 (0.0-0.1); Basophils Percent Auto 0.6 % (0.2-1.2); Eosinophils Absolute Auto 0.2 K/mm3 (0-0.3); Eosinophils Percent Auto 2.3 % (0-4.4); Hematocrit 33.2 % (37.0-47.0); Hemoglobin 11.2 g/dL (12.0-15.0); Immature Granulocyte Absolute 0.02 K/mm3 (0.00-0.031); Immature Granulocyte Percent A 0.2 % (0-0.5); Lymphocytes Absolute Auto 2.47 K/mm3 (0.9-3.2); Lymphocytes Percent Auto 27.5 % (18.3-44.2); Mean Corpuscular HGB Conc 33.7 g/dl (32-36); Mean Corpuscular Hemoglobin 28.9 pg (26-34); Mean Corpuscular Volume 85.6 fl (80-100); Monocytes Absolute Auto 0.8 K/mm3 (0.1-0.6); Monocytes Percent Auto 9.1 % (2.6-8.5); Neutrophils Absolute Auto 5.4 K/mm3 (1.3-6.7); Neutrophils Percent Auto 60.3 % (45.5-73.1); Platelet Count Result 350 k/mm3 (150-375); Red Blood Count 3.88 M/mm3 (4.2-5.4); Red Cell Distribution Width 12.2 % (11.5-14.5)
[2025-04-07 06:00] VITALS: BP 111/71; PULSE 74; RESP 18; TEMP 36.6; O2SAT 100
[2025-04-07 06:19] LABS: Alanine Aminotransferase 21 U/L (6-35); Albumin Level 3.8 g/dL (3.5-5.1); Alkaline Phosphatase 69 U/L (38-126); Anion Gap 8 mmol/L (4-12); Aspartate Amino Transferase 22 U/L (14-36); Bilirubin,Total 0.4 mg/dL (0.2-1.3); Blood Urea Nitrogen 13 mg/dL (7-17); Calcium 8.6 mg/dL (8.4-10.2); Carbon Dioxide 24 mmol/L (22-30); Chloride 103 mmol/L (98-107); Estimated CRCL calculation 208 ml/min; Estimated Glomerular Filt Rate > 60; Glucose 125 mg/dL (65-110); Potassium 4.1 mmol/L (3.4-5.0); Sodium 135 mmol/L (137-145); Total Protein 7.3 g/dL (6.3-8.2)
[2025-04-07 07:57] VITALS: O2SAT 100
--- NOTE | 2025-04-07 09:32 | P.CONGS_ITS ---
Assessment and Plan Assessment and plan (1) Abscess of left thigh: Code(s): L02.416 - Cutaneous abscess of left lower limb Status: Acute Assessment and Plan: Patient presents with abscess that was first noted roughly 8 days ago. Failed outpatient antibiotic treatment, as abscess continued to worsen. Normal WBC. Afebrile. No history of HS. US read still pending. Plan for bedside incision and drainage with packing today. Continue to monitor labs and vitals. History of Present Illness Consult details Consult date: 04/07/25 Reason for consult: other (left inner thigh abscess) Requesting physician: Cabrera Leal APRN Narrative: Patient is a 39 y/o female who presented to the ED yesterday with complaints of worsening left inner thigh abscess. She first presented to ED 6 days ago for this complaint and was sent home with Bactrim. She took the Bactrim religiously, but noted her inner thigh to continue worsen with increased edema, erythema, temperature, and pain. No drainage from the area. Pain is exaggerated with walking/movement. No history of hidradenitis suppurativa. Afebrile. Normal WBC. [facility] Past Medical History Medical History No active medical problems Surgical History Surgical History History of tonsillectomy History of cholecystectomy Social History Social History Smoking packs per day: 0.12 Smoking cigarettes per day: 2.4 Years smoked: 20 Smoking pack-years: 2.40 Smoking status: Current every day smoker Tobacco type: cigarettes Alcohol intake: never Substance use: current Substance use type: marijuana Last use: 04/06 Do You Feel Safe in your Home?: Yes Lack of Transportation: No Lack of Food: Never True Current Housing: I Have Housing Concerned About Future Housing: No Difficulty Paying Gas/Electric Bills: YES Difficulty Paying for Meds: No Currently Unemployed: No Education: High School Diploma/GED Difficulty w/ Childcare or Family Care: No Spiritual care concerns: No Meds Home Medications and Allergies Home Medications ?Medication ?Instructions ?Recorded ?Confirmed ?Type albuterol sulfate 90 mcg/actuation 2 puff inhalation QID PRN 11/30/24 04/06/25 Rx aerosol inhaler (Ventolin HFA) shortness of breath or wheezing #8.5 grams sulfamethoxazole 800 1 tablet PO Q12H 7 days #14 tabs 04/01/25 04/06/25 Rx mg-trimethoprim 160 mg tablet (Bactrim DS) Allergies Allergy/AdvReac Type Severity Reaction Status Date / Time No Known Allergies Allergy Verified 04/06/25 16:47 Vital Signs Vital Signs - 24 hr 04/06/25 17:43 04/06/25 21:44 04/07/25 06:00 Temperature 98 F 98.1 F 97.9 F Pulse Rate 96 72 74 Respiratory Rate 18 18 18 Blood Pressure 142/47 H 112/83 111/71 Pulse Oximetry 99 100 100 Oxygen Delivery Room Air Exam 2 Const: General: comfortable HENMT: Face/Nose/Sinus: Normal nares present Mouth: Yes moist mucous membranes Neck: Neck: supple Resp: Effort & Inspection: normal respiratory effort Cardio: Rate: regular rate Skin: Other: Left inner thigh area of firm induration roughly 5x4 cm with central 2x2 cm of fluctuance. No opening or drainage. Small pink area where head may be starting to form. Extrem: General: normal to inspection Other: large scar to right thigh Psych: Mental Status: mental status grossly normal Results Labs 04/07/25 04:58 04/07/25 04:59 Labs: Abnormal lab results 04/06/25 04/07/25 04/07/25 Range/Units 17:50 04:58 04:59 RBC 3.88 L (4.2-5.4) M/mm3 Hgb 11.2 L (12.0-15.0) g/dL Hct 33.2 L (37.0-47.0) % Plt Count 389 H (150-375) k/mm3 [place] % (Auto) 9.1 H (2.6-8.5) % [place] # (Auto) 0.8 H (0.1-0.6) K/mm3 Abs Immat Gran (auto) 0.04 H (0.00-0.031) K/mm3 ESR 45 H (0-20) mm/hr Sodium 136 L 135 L (137-145) mmol/L Creatinine 1.07 H (0.7-1.0) mg/dL Estimated GFR 58 L (59 - ) Glucose 119 H 125 H (65-110) mg/dL C-Reactive Protein 3.4 H (<1.0) mg/dL Diabetes panel 04/06/25 04/07/25 Range/Units 17:50 04:59 Sodium 136 L 135 L (137-145) mmol/L Potassium 4.1 4.1 (3.4-5.0) mmol/L Chloride 102 103 (98-107) mmol/L Carbon Dioxide 25 24 (22-30) mmol/L BUN 11 13 (7-17) mg/dL Creatinine 1.07 H 0.91 (0.7-1.0) mg/dL Glucose 119 H 125 H (65-110) mg/dL Calcium 9.4 8.6 (8.4-10.2) mg/dL AST 22 (14-36) U/L ALT 21 (6-35) U/L Alkaline Phosphatase 69 (38-126) U/L Total Protein 7.3 (6.3-8.2) g/dL Albumin 3.8 (3.5-5.1) g/dL Calcium panel 04/06/25 04/07/25 Range/Units 17:50 04:59 Calcium 9.4 8.6 (8.4-10.2) mg/dL Albumin 3.8 (3.5-5.1) g/dL Pituitary panel 04/06/25 04/07/25 Range/Units 17:50 04:59 Sodium 136 L 135 L (137-145) mmol/L Potassium 4.1 4.1 (3.4-5.0) mmol/L Chloride 102 103 (98-107) mmol/L Carbon Dioxide 25 24 (22-30) mmol/L BUN 11 13 (7-17) mg/dL Creatinine 1.07 H 0.91 (0.7-1.0) mg/dL Glucose 119 H 125 H (65-110) mg/dL Calcium 9.4 8.6 (8.4-10.2) mg/dL Adrenal panel 04/06/25 04/07/25 Range/Units 17:50 04:59 Sodium 136 L 135 L (137-145) mmol/L Potassium 4.1 4.1 (3.4-5.0) mmol/L Chloride 102 103 (98-107) mmol/L Carbon Dioxide 25 24 (22-30) mmol/L BUN 11 13 (7-17) mg/dL Creatinine 1.07 H 0.91 (0.7-1.0) mg/dL Glucose 119 H 125 H (65-110) mg/dL Calcium 9.4 8.6 (8.4-10.2) mg/dL Total Bilirubin 0.4 (0.2-1.3) mg/dL AST 22 (14-36) U/L ALT 21 (6-35) U/L Alkaline Phosphatase 69 (38-126) U/L Total Protein 7.3 (6.3-8.2) g/dL Albumin 3.8 (3.5-5.1) g/dL All other labs normal.
[2025-04-07] MEDS: VANCOMYCIN 1,500 MG/NS 500 ML 1,500 MG/500 ML BAG 250 MG IVPB ×2 (09:49→20:00)
--- NOTE | 2025-04-07 10:30 | P.PNIM_ITS ---
Progress Note: A&P Assessment and Plan (1) Cellulitis: Qualifiers: Laterality: left Site of cellulitis: extremity Site of cellulitis of extremity: lower extremity Qualified Code(s): L03.116 - Cellulitis of left lower limb Code(s): L03.90 - Cellulitis, unspecified Status: Acute Assessment and Plan: -left thigh cellulitis with spreading of induration and swelling despite outpatient Bactrim started on 04/01/25 -Failure of outpatient antibiotics -Patient declined I&D of small fluctuant area in ER -ER started IV vancomycin which will be continued, pharmacy to dose -My exam concerning for deeper abscess like hydradenitis picture -Order formal Ultrasound to assess for deeper abscess -Referral to General Surgery, appreciate recommendations. -Patient underwent I& D today. Purulent drainage was noted. Wound cultures sent. (2) RIDGE (acute kidney injury): Code(s): N17.9 - Acute kidney failure, unspecified Status: Acute Assessment and Plan: -Patient has been on Bactrim since 04/01/25 -Labs today show eGFR 58 with mildly increased Cr of 1.07 vs 0.80 previously, currently 0.91. -S/P one liter IV fluids in ER -Heart Healthy diet -Repeat labs in AM Subjective Date/time seen: 04/07/25 10:30 Interval history: Patient sitting up in bed eating lunch. Patient reports pain in her left leg is a 5, constant, and burning. Patient reports that she is unsure what happened to her leg. Noticed swelling and pain started a week ago this past Monday. Patient came to the ER and was given Bactrim. Patient reports laying on sofa since Monday and pain worse with harder to walk on yesterday so she came to the hospital. Patient denies chest pain, palpitations, headache, dizziness, nausea, or vomiting. Review of Systems Review of Systems: All systems reviewed & are unremarkable except as noted in HPI and below Exam Const: General: no acute distress and uncomfortable Resp: Effort & Inspection: normal respiratory effort Auscultation: clear to auscultation bilaterally Cardio: Rate: regular rate Rhythm: regular rhythm GI: GI Palp: Yes Soft to palpation Auscultation: normal bowel sounds Skin: Other: Left inner thigh hardening with tenderness and warmth. Psych: Mental Status: mental status grossly normal Affect: normal affect Objective Data Vital Signs Vital Signs: Vital Signs - 24 hr 04/06/25 17:43 04/06/25 21:44 04/07/25 06:00 Temperature 98 F 98.1 F 97.9 F Pulse Rate 96 72 74 Respiratory Rate 18 18 18 Blood Pressure 142/47 H 112/83 111/71 Pulse Oximetry 99 100 100 Oxygen Delivery Room Air Intake/Output Intake/Output: Intake & Output 04/04/25 04/05/25 04/06/25 04/07/25 23:59 23:59 23:59 23:59 Intake Total 500 580 Balance 500 580 Meds/Results Medications: Active Medications Generic Name Dose Route Start Last Admin Trade Name Freq PRN Reason Stop Dose Admin Acetaminophen 650 mg 04/06/25 21:54 Acetaminophen 325 Mg Tablet PO Q4H PRN Pain Rated 5 or Less or Fever Hydrocodone Bitart/Acetaminophen 1 tab 04/06/25 21:54 04/07/25 06:40 Hydrocodone/Acetaminophen (*Crx) 5-325 Mg Tablet PO 1 tab Q4H PRN Administration Pain Rated 6 or Greater Albuterol 2 puff 04/06/25 21:58 Albuterol Sulfate (*Sp) Aerosol 1 Puff INHALATION Q6HRT PRN shortness of breath or wheezing Vancomycin HCl 1,500 mg in 500 mls @ 250 mls/hr 04/06/25 20:00 04/07/25 09:49 Vancomycin 1,500 Mg/Ns 500 Ml IVPB 250 mls/hr Q12H SIDRA Administration Ondansetron HCl 4 mg 04/06/25 21:54 Ondansetron Inj 4 Mg/2 Ml Vial IV PUSH Q4H PRN Nausea And Vomiting Labs Labs: Laboratory Results - last 24 hr 04/06/25 04/06/25 04/07/25 17:50 20:11 04:58 WBC 8.7 9.0 RBC 4.40 3.88 L Hgb 12.8 11.2 L Hct 37.5 33.2 L MCV 85.2 85.6 MCH 29.1 28.9 MCHC 34.1 33.7 RDW 12.1 12.2 Plt Count 389 H 350 MPV 9.9 10.0 Immature Gran % (Auto) 0.5 0.2 Neut % (Auto) 69.5 60.3 Lymph % (Auto) 21.2 27.5 [place] % (Auto) 7.0 9.1 H Eos % (Auto) 1.2 2.3 Baso % (Auto) 0.6 0.6 Lymph # (Auto) 1.84 2.47 [place] # (Auto) 0.6 0.8 H Eos # (Auto) 0.1 0.2 Baso # (Auto) 0.1 0.1 Abs Immat Gran (auto) 0.04 H 0.02 Absolute Neuts (auto) 6.0 5.4 Absolute Nucleated RBC 0.000 0.000 Nucleated RBC % 0.0 0.0 ESR 45 H Sodium 136 L Potassium 4.1 Chloride 102 Carbon Dioxide 25 Anion Gap 9 BUN 11 Creatinine 1.07 H Estim Creat Clear Calc 111 Estimated GFR 58 L Glucose 119 H Lactic Acid 1.7 Calcium 9.4 Magnesium Total Bilirubin AST ALT Alkaline Phosphatase Total Creatine Kinase 82 C-Reactive Protein 3.4 H Total Protein Albumin Procalcitonin 0.0 04/07/25 04:59 WBC RBC Hgb Hct MCV MCH MCHC RDW Plt Count MPV Immature Gran % (Auto) Neut % (Auto) Lymph % (Auto) [place] % (Auto) Eos % (Auto) Baso % (Auto) Lymph # (Auto) [place] # (Auto) Eos # (Auto) Baso # (Auto) Abs Immat Gran (auto) Absolute Neuts (auto) Absolute Nucleated RBC Nucleated RBC % ESR Sodium 135 L Potassium 4.1 Chloride 103 Carbon Dioxide 24 Anion Gap 8 BUN 13 Creatinine 0.91 Estim Creat Clear Calc 208 Estimated GFR > 60 Glucose 125 H Lactic Acid Calcium 8.6 Magnesium 2.0 Total Bilirubin 0.4 AST 22 ALT 21 Alkaline Phosphatase 69 Total Creatine Kinase C-Reactive Protein Total Protein 7.3 Albumin 3.8 Procalcitonin Quality VTE Prophylaxis VTE prophylaxis: pharmacologic ordered
--- NOTE | 2025-04-07 11:39 | W.PM.PROC2 ---
Procedure Note - Detailed Date of Procedure 04/07/25 Pre-op Diagnosis Left thigh abscess Post-op Diagnosis Same Procedure Performed incision and drainage of simple left thigh abscess Surgeon Coni Villarreal PA-C [employer] Faviola Douglas NP Anesthesia Local (lido w/ epi) Indications 39 y/o presented with left thigh pain and swelling x 1 week. Failed outpatient antibiotics. Findings left thigh abscess with purulent drainange Description of Procedure The patient was placed in the supine position. The site of abscess for I&D was identified. Following this, the area was prepped with alcohol prep pads. Then local anesthetic was infiltrated directly over the area of swelling and abscess formation. After allowing time for local anesthetic to take affect, direct incision was made with #11 blade scalpel over the fluctuant area. Immediate flow of purulent drainage was noted. All loculations were broken up. The abscess cavity was probed and all purulent drainage was expressed from the abscess. Following this, the area was packed with [1/4 iodoform gauze] and the area was covered with gauze and tape. Packing Yes Pathology Other (cultures sent) Complications No immediate complications Condition Stable Disposition No change [facility] Billing Surgery - Charge Forward: Surgery Billing
[2025-04-07 15:05] VITALS: BP 120/57; PULSE 72; RESP 18; TEMP 36.6; O2SAT 99
[2025-04-07] MEDS: ACETAMINOPHEN 325 MG TABLET 650 MG PO (17:55)
[2025-04-07] MEDS: ENOXAPARIN 40 MG/0.4 ML SYRINGE SUB-Q (21:05)
[2025-04-07 22:26] VITALS: BP 121/68; PULSE 75; RESP 20; TEMP 36.9; O2SAT 100
[2025-04-08] MEDS: HYDROcodone/acetaminophen (*CRX) 5-325 MG TABLET 1 TAB PO ×4 (00:36→22:33)
[2025-04-08 06:00] VITALS: BP 130/80; PULSE 70; RESP 20; TEMP 36.4; O2SAT 100
[2025-04-08 07:10] LABS: Basophils Percent Auto 0.5 % (0.2-1.2); Eosinophils Absolute Auto 0.2 K/mm3 (0-0.3); Eosinophils Percent Auto 3.1 % (0-4.4); Hematocrit 35.3 % (37.0-47.0); Hemoglobin 11.8 g/dL (12.0-15.0); Immature Granulocyte Absolute 0.02 K/mm3 (0.00-0.031); Immature Granulocyte Percent A 0.3 % (0-0.5); Lymphocytes Absolute Auto 2.12 K/mm3 (0.9-3.2); Mean Corpuscular HGB Conc 33.4 g/dl (32-36); Mean Corpuscular Hemoglobin 28.7 pg (26-34); Mean Corpuscular Volume 85.9 fl (80-100); Mean Platelet Volume 9.8 fl (7.4-10.4); Monocytes Absolute Auto 0.7 K/mm3 (0.1-0.6); Monocytes Percent Auto 9.2 % (2.6-8.5); Neutrophils Absolute Auto 4.2 K/mm3 (1.3-6.7); Neutrophils Percent Auto 57.9 % (45.5-73.1); Platelet Count Result 370 k/mm3 (150-375); Red Blood Count 4.11 M/mm3 (4.2-5.4); Red Cell Distribution Width 12.3 % (11.5-14.5); White Blood Count 7.3 K/mm3 (4.5-10.0)
[2025-04-08 07:35] LABS: Alanine Aminotransferase 21 U/L (6-35); Alkaline Phosphatase 77 U/L (38-126); Anion Gap 6 mmol/L (4-12); Aspartate Amino Transferase 22 U/L (14-36); Bilirubin,Total 0.4 mg/dL (0.2-1.3); Blood Urea Nitrogen 10 mg/dL (7-17); Calcium 8.9 mg/dL (8.4-10.2); Carbon Dioxide 28 mmol/L (22-30); Chloride 103 mmol/L (98-107); Estimated CRCL calculation 125 ml/min; Estimated Glomerular Filt Rate > 60; Glucose 133 mg/dL (65-110); Potassium 4.9 mmol/L (3.4-5.0); Sodium 137 mmol/L (137-145); Total Protein 7.5 g/dL (6.3-8.2)
[2025-04-08 07:58] LABS: Vancomycin Trough 8.7 ug/mL (10.0-20.0)
[2025-04-08] MEDS: ENOXAPARIN 40 MG/0.4 ML SYRINGE SUB-Q ×2 (08:42→20:28)
[2025-04-08] MEDS: VANCOMYCIN 2,000 MG/NS 500 ML 2,000 MG/500 ML BAG 250 MG IVPB (09:27)
--- NOTE | 2025-04-08 10:37 | P.PNIM_ITS ---
Progress Note: A&P Assessment and Plan (1) Cellulitis: Qualifiers: Laterality: left Site of cellulitis: extremity Site of cellulitis of extremity: lower extremity Qualified Code(s): L03.116 - Cellulitis of left lower limb Code(s): L03.90 - Cellulitis, unspecified Status: Acute Assessment and Plan: -left thigh cellulitis with spreading of induration and swelling despite outpatient Bactrim started on 04/01/25 -Failure of outpatient antibiotics -Patient declined I&D of small fluctuant area in ER -ER started IV vancomycin which will be continued, pharmacy to dose -My exam concerning for deeper abscess like hydradenitis picture -Order formal Ultrasound to assess for deeper abscess -Referral to General Surgery, appreciate recommendations. -Patient underwent I& D 04/07, purulent drainage was noted. Wound cultures sent with preliminary results showing gram + cocci. -Pain regimen. (2) RIDGE (acute kidney injury): Code(s): N17.9 - Acute kidney failure, unspecified Status: Acute Assessment and Plan: -Patient has been on Bactrim since 04/01/25 -Labs today show eGFR 58 with mildly increased Cr of 1.07 vs 0.80 previously, currently 0.95. -S/P one liter IV fluids in ER -Heart Healthy diet -Repeat labs in AM Subjective Date/time seen: 04/08/25 10:37 Interval history: Patient reports pain in her left leg is a 7, constant, and burning. Patient denies chest pain, palpitations, headache, dizziness, nausea, or vomiting. Review of Systems Review of Systems: All systems reviewed & are unremarkable except as noted in HPI and below Exam Const: General: no acute distress and uncomfortable Resp: Effort & Inspection: normal respiratory effort Auscultation: clear to auscultation bilaterally Cardio: Rate: regular rate Rhythm: regular rhythm GI: GI Palp: Yes Soft to palpation Auscultation: normal bowel sounds Skin: Other: Thigh dressing with dried bloody drainage shadow on bandage. Neuro: Speech: normal speech Extrem: General: no pedal edema Psych: Mental Status: mental status grossly normal Affect: normal affect Objective Data Vital Signs Vital Signs: Vital Signs - 24 hr 04/07/25 10:43 04/07/25 15:05 04/07/25 22:26 Temperature 97.9 F 98.5 F Pulse Rate 72 75 Respiratory Rate 18 20 Blood Pressure 120/57 L 121/68 Pulse Oximetry 99 100 Oxygen Delivery Room Air 04/08/25 06:00 Temperature 97.5 F L Pulse Rate 70 Respiratory Rate 20 Blood Pressure 130/80 Pulse Oximetry 100 Oxygen Delivery Intake/Output Intake/Output: Intake & Output 04/05/25 04/06/25 04/07/25 04/08/25 23:59 23:59 23:59 23:59 Intake Total 500 1580 840 Balance 500 1580 840 Meds/Results Medications: Active Medications Generic Name Dose Route Start Last Admin Trade Name Freq PRN Reason Stop Dose Admin Acetaminophen 650 mg 04/06/25 21:54 04/07/25 17:55 Acetaminophen 325 Mg Tablet PO 650 mg Q4H PRN Administration Pain Rated 5 or Less or Fever Hydrocodone Bitart/Acetaminophen 1 tab 04/06/25 21:54 04/08/25 09:26 Hydrocodone/Acetaminophen (*Crx) 5-325 Mg Tablet PO 1 tab Q4H PRN Administration Pain Rated 6 or Greater Albuterol 2 puff 04/06/25 21:58 Albuterol Sulfate (*Sp) Aerosol 1 Puff INHALATION Q6HRT PRN shortness of breath or wheezing Enoxaparin Sodium 40 mg 04/07/25 21:00 04/08/25 08:42 Enoxaparin 40 Mg/0.4 Ml Syringe SUB-Q 40 mg Q12HR SIDRA Administration Vancomycin HCl 2,000 mg in 500 mls @ 250 mls/hr 04/08/25 09:00 04/08/25 09:27 Vancomycin 2,000 Mg/Ns 500 Ml IVPB 250 mls/hr Q12H SIDRA Administration Ondansetron HCl 4 mg 04/06/25 21:54 Ondansetron Inj 4 Mg/2 Ml Vial IV PUSH Q4H PRN Nausea And Vomiting Labs Labs: Laboratory Results - last 24 hr 04/08/25 07:05 WBC 7.3 RBC 4.11 L Hgb 11.8 L Hct 35.3 L MCV 85.9 MCH 28.7 MCHC 33.4 RDW 12.3 Plt Count 370 MPV 9.8 Immature Gran % (Auto) 0.3 Neut % (Auto) 57.9 Lymph % (Auto) 29.0 [place] % (Auto) 9.2 H Eos % (Auto) 3.1 Baso % (Auto) 0.5 Lymph # (Auto) 2.12 [place] # (Auto) 0.7 H Eos # (Auto) 0.2 Baso # (Auto) 0.0 Abs Immat Gran (auto) 0.02 Absolute Neuts (auto) 4.2 Absolute Nucleated RBC 0.000 Nucleated RBC % 0.0 Sodium 137 Potassium 4.9 Chloride 103 Carbon Dioxide 28 Anion Gap 6 BUN 10 Creatinine 0.95 Estim Creat Clear Calc 125 Estimated GFR > 60 Glucose 133 H Hemoglobin A1c 6.0 H Calcium 8.9 Magnesium 2.0 Total Bilirubin 0.4 AST 22 ALT 21 Alkaline Phosphatase 77 Total Protein 7.5 Albumin 4.0 Vancomycin Trough 8.7 L Quality VTE Prophylaxis VTE prophylaxis: pharmacologic ordered
[2025-04-08] MEDS: MORPHINE SULFATE (*CRX) 2 MG/ML INJ IV PUSH ×2 (11:12→17:54)
--- NOTE | 2025-04-08 11:41 | PM.PNGS ---
Progress Note: A&P Assessment and Plan (1) Abscess of left thigh: Code(s): L02.416 - Cutaneous abscess of left lower limb Status: Acute Assessment and Plan: S/p I&D left thigh abscess. Still with minimal purulent drainage, but induration improving. Will repack again today. Patient does not have anyone to help with packing at home. Continue IV antibiotics, cultures pending (2) Prediabetes: Code(s): R73.03 - Prediabetes Status: Acute Assessment and Plan: Hgb A1C 6.0 on labs this morning. Recommended dietary and lifestyle modifications, as well as establishing care with a PCP after discharge. Plan I have discussed the patient's case and plan of care with Dr. Lozano. Subjective Subjective Date/Time Seen: 04/08/25 11:41 Post Op day: 1 (I&D left thigh abscess) Interval history: Patient doing well today. Her left thigh pain has been about the same since I&D. She feels it is difficult to tell if there is much improvement in the swelling yet. She is ambulating well without issues. Pain is currently controlled with [place]. Exam Narrative: Left thigh abscess packing removed, still minimal purulent drainage noted after pulling packing. Induration and swelling improved. Incision repacked. Objective Data Vital Signs Vital Signs: Vital Signs - 24 hr 04/07/25 15:05 04/07/25 22:26 04/08/25 06:00 Temperature 97.9 F 98.5 F 97.5 F L Pulse Rate 72 75 70 Respiratory Rate 18 20 20 Blood Pressure 120/57 L 121/68 130/80 Pulse Oximetry 99 100 100 Intake/Output Intake/Output: Intake & Output 04/05/25 04/06/25 04/07/25 04/08/25 23:59 23:59 23:59 23:59 Intake Total 500 1580 840 Balance 500 1580 840 Meds/Results Medications: Active Medications Generic Name Dose Route Start Last Admin Trade Name Freq PRN Reason Stop Dose Admin Acetaminophen 650 mg 04/06/25 21:54 04/07/25 17:55 Acetaminophen 325 Mg Tablet PO 650 mg Q4H PRN Administration Pain Rated 5 or Less or Fever Hydrocodone Bitart/Acetaminophen 1 tab 04/06/25 21:54 04/08/25 09:26 Hydrocodone/Acetaminophen (*Crx) 5-325 Mg Tablet PO 1 tab Q4H PRN Administration Pain Rated 6 or Greater Albuterol 2 puff 04/06/25 21:58 Albuterol Sulfate (*Sp) Aerosol 1 Puff INHALATION Q6HRT PRN shortness of breath or wheezing Enoxaparin Sodium 40 mg 04/07/25 21:00 04/08/25 08:42 Enoxaparin 40 Mg/0.4 Ml Syringe SUB-Q 40 mg Q12HR SIDRA Administration Vancomycin HCl 2,000 mg in 500 mls @ 250 mls/hr 04/08/25 09:00 04/08/25 09:27 Vancomycin 2,000 Mg/Ns 500 Ml IVPB 250 mls/hr Q12H SIDRA Administration Morphine Sulfate 2 mg 04/08/25 10:51 04/08/25 11:12 Morphine Sulfate (*Crx) 2 Mg/Ml Inj IV PUSH 2 mg Q4H PRN Administration Pain Rated 7-10 Ondansetron HCl 4 mg 04/06/25 21:54 Ondansetron Inj 4 Mg/2 Ml Vial IV PUSH Q4H PRN Nausea And Vomiting Labs Labs: Laboratory Results - last 24 hr 04/08/25 07:05 WBC 7.3 RBC 4.11 L Hgb 11.8 L Hct 35.3 L MCV 85.9 MCH 28.7 MCHC 33.4 RDW 12.3 Plt Count 370 MPV 9.8 Immature Gran % (Auto) 0.3 Neut % (Auto) 57.9 Lymph % (Auto) 29.0 [place] % (Auto) 9.2 H Eos % (Auto) 3.1 Baso % (Auto) 0.5 Lymph # (Auto) 2.12 [place] # (Auto) 0.7 H Eos # (Auto) 0.2 Baso # (Auto) 0.0 Abs Immat Gran (auto) 0.02 Absolute Neuts (auto) 4.2 Absolute Nucleated RBC 0.000 Nucleated RBC % 0.0 Sodium 137 Potassium 4.9 Chloride 103 Carbon Dioxide 28 Anion Gap 6 BUN 10 Creatinine 0.95 Estim Creat Clear Calc 125 Estimated GFR > 60 Glucose 133 H Hemoglobin A1c 6.0 H Calcium 8.9 Magnesium 2.0 Total Bilirubin 0.4 AST 22 ALT 21 Alkaline Phosphatase 77 Total Protein 7.5 Albumin 4.0 Vancomycin Trough 8.7 L
[2025-04-08 14:00] VITALS: BP 129/62; PULSE 74; RESP 18; TEMP 36.3; O2SAT 100
[2025-04-08] MEDS: VANCOMYCIN 2,000 MG/NS 500 ML 2,000 MG/500 ML BAG 200 MG IVPB (20:28)
[2025-04-08 22:06] VITALS: BP 156/88; PULSE 71; RESP 20; TEMP 36.7; O2SAT 100
[2025-04-09] MEDS: HYDROcodone/acetaminophen (*CRX) 5-325 MG TABLET 1 TAB PO ×3 (02:51→21:23)
[2025-04-09 05:44] LABS: Basophils Percent Auto 0.6 % (0.2-1.2); Eosinophils Absolute Auto 0.2 K/mm3 (0-0.3); Eosinophils Percent Auto 3.1 % (0-4.4); Hematocrit 33.9 % (37.0-47.0); Hemoglobin 11.1 g/dL (12.0-15.0); Immature Granulocyte Absolute 0.02 K/mm3 (0.00-0.031); Immature Granulocyte Percent A 0.3 % (0-0.5); Lymphocytes Absolute Auto 2.52 K/mm3 (0.9-3.2); Lymphocytes Percent Auto 35.4 % (18.3-44.2); Mean Corpuscular HGB Conc 32.7 g/dl (32-36); Mean Corpuscular Hemoglobin 28.5 pg (26-34); Mean Corpuscular Volume 87.1 fl (80-100); Monocytes Absolute Auto 0.6 K/mm3 (0.1-0.6); Monocytes Percent Auto 7.9 % (2.6-8.5); Neutrophils Absolute Auto 3.8 K/mm3 (1.3-6.7); Neutrophils Percent Auto 52.7 % (45.5-73.1); Platelet Count Result 353 k/mm3 (150-375); Red Blood Count 3.89 M/mm3 (4.2-5.4); Red Cell Distribution Width 12.2 % (11.5-14.5); White Blood Count 7.1 K/mm3 (4.5-10.0)
[2025-04-09 05:59] LABS: Alanine Aminotransferase 17 U/L (6-35); Albumin Level 3.6 g/dL (3.5-5.1); Alkaline Phosphatase 65 U/L (38-126); Anion Gap 8 mmol/L (4-12); Aspartate Amino Transferase 20 U/L (14-36); Bilirubin,Total 0.3 mg/dL (0.2-1.3); Blood Urea Nitrogen 11 mg/dL (7-17); Calcium 8.9 mg/dL (8.4-10.2); Carbon Dioxide 25 mmol/L (22-30); Chloride 102 mmol/L (98-107); Estimated CRCL calculation 142 ml/min; Estimated Glomerular Filt Rate > 60; Glucose 133 mg/dL (65-110); Magnesium 1.9 mg/dL (1.6-2.3); Potassium 4.3 mmol/L (3.4-5.0); Sodium 135 mmol/L (137-145); Total Protein 6.7 g/dL (6.3-8.2)
[2025-04-09 06:00] VITALS: BP 122/60; PULSE 66; RESP 20; TEMP 36.5; O2SAT 100
[2025-04-09] MEDS: VANCOMYCIN 2,000 MG/NS 500 ML 2,000 MG/500 ML BAG 250 MG IVPB ×2 (09:03→21:24)
[2025-04-09] MEDS: ENOXAPARIN 40 MG/0.4 ML SYRINGE SUB-Q ×2 (09:04→20:29)
--- NOTE | 2025-04-09 09:16 | P.CDI_ITS ---
CDI Query Clarification Request Please clarify the depth of the incision and drainage on 04/07 of left thigh a bscess. Findings left thigh abscess with purulent drainange Description of Procedure The patient was placed in the supine position. The site of abscess for I&D was identified. Following this, the area was prepped with alcohol prep pads. Then local anesthetic was infiltrated directly over the area of swelling and abscess formation. After allowing time for local anesthetic to take affect, direct incision was made with #11 blade scalpel over the fluctuant area. Immediate flow of purulent drainage was noted. All loculations were broken up. The abscess cavity was probed and all purulent drainage was expressed from the abscess. Following this, the area was packed with [1/4 iodoform gauze] and the area was covered with gauze and tape. <Donna Bush RN - Last Filed: 04/09/25 09:20> Please clarify the depth of the incision and drainage on 04/07 of left thigh abscess. Findings left thigh abscess with purulent drainage Description of Procedure The patient was placed in the supine position. The site of abscess for I&D was identified. Following this, the area was prepped with alcohol prep pads. Then local anesthetic was infiltrated directly over the area of swelling and abscess formation. After allowing time for local anesthetic to take affect, direct incision of 2 cm was made with #11 blade scalpel over the fluctuant area. Immediate flow of purulent drainage was noted. All loculations were broken up. The abscess cavity was probed to a depth of 4 cm and all purulent drainage was expressed from the abscess. Following this, the area was packed with 1/4 iodoform gauze and the area was covered with gauze and tape. <Coni Villarreal PA-C - Last Filed: 04/09/25 10:19>
[2025-04-09] MEDS: MORPHINE SULFATE (*CRX) 2 MG/ML INJ IV PUSH (09:43)
--- NOTE | 2025-04-09 10:05 | PM.PNGS ---
Progress Note: A&P Assessment and Plan (1) Abscess of left thigh: Code(s): L02.416 - Cutaneous abscess of left lower limb Status: Acute Assessment and Plan: S/p I&D left thigh abscess. Cultures pending, gram stain with gram + cocci. No purulent drainage today and induration continues to improve Continue daily packing dressing changes for today Continue IV Vanc (2) Prediabetes: Code(s): R73.03 - Prediabetes Status: Acute Assessment and Plan: Hgb A1C 6.0 on admission Plan I have discussed the patient's case and plan of care with Dr. Lozano. Subjective Subjective Date/Time Seen: 04/09/25 10:05 Post Op day: 2 Patient reports: no new complaints, feels better, pain is less and afebrile Interval history: Left thigh pain improving. She is having an easier time ambulating in the halls with much less pain. She feels the swelling has come down. No fevers. Nursing had to change her gauze cover dressing due to copious drainage. Exam Narrative: Left medial thigh dressing and packing removed. No purulent drainage noted today. Induration/swelling improving. Less tender today. Const: General: comfortable and no acute distress Objective Data Vital Signs Vital Signs: Vital Signs - 24 hr 04/08/25 14:00 04/08/25 22:06 04/09/25 06:00 Temperature 97.4 F L 98.1 F 97.7 F Pulse Rate 74 71 66 Respiratory Rate 18 20 20 Blood Pressure 129/62 156/88 H 122/60 Pulse Oximetry 100 100 100 Oxygen Delivery 04/09/25 08:00 Temperature Pulse Rate Respiratory Rate Blood Pressure Pulse Oximetry Oxygen Delivery Room Air Intake/Output Intake/Output: Intake & Output 04/06/25 04/07/25 04/08/25 04/09/25 23:59 23:59 23:59 23:59 Intake Total 500 1580 2920 440 Balance 500 1580 2920 440 Meds/Results Medications: Active Medications Generic Name Dose Route Start Last Admin Trade Name Freq PRN Reason Stop Dose Admin Acetaminophen 650 mg 04/06/25 21:54 04/07/25 17:55 Acetaminophen 325 Mg Tablet PO 650 mg Q4H PRN Administration Pain Rated 5 or Less or Fever Hydrocodone Bitart/Acetaminophen 1 tab 04/06/25 21:54 04/09/25 02:51 Hydrocodone/Acetaminophen (*Crx) 5-325 Mg Tablet PO 1 tab Q4H PRN Administration Pain Rated 6 or Greater Albuterol 2 puff 04/06/25 21:58 Albuterol Sulfate (*Sp) Aerosol 1 Puff INHALATION Q6HRT PRN shortness of breath or wheezing Enoxaparin Sodium 40 mg 04/07/25 21:00 04/09/25 09:04 Enoxaparin 40 Mg/0.4 Ml Syringe SUB-Q 40 mg Q12HR SIDRA Administration Vancomycin HCl 2,000 mg in 500 mls @ 250 mls/hr 04/08/25 09:00 04/09/25 09:03 Vancomycin 2,000 Mg/Ns 500 Ml IVPB 250 mls/hr Q12H SIDRA Administration Morphine Sulfate 2 mg 04/08/25 10:51 04/09/25 09:43 Morphine Sulfate (*Crx) 2 Mg/Ml Inj IV PUSH 2 mg Q4H PRN Administration Pain Rated 7-10 Ondansetron HCl 4 mg 04/06/25 21:54 Ondansetron Inj 4 Mg/2 Ml Vial IV PUSH Q4H PRN Nausea And Vomiting Labs Labs: Laboratory Results - last 24 hr 04/09/25 05:12 WBC 7.1 RBC 3.89 L Hgb 11.1 L Hct 33.9 L MCV 87.1 MCH 28.5 MCHC 32.7 RDW 12.2 Plt Count 353 MPV 10.0 Immature Gran % (Auto) 0.3 Neut % (Auto) 52.7 Lymph % (Auto) 35.4 [place] % (Auto) 7.9 Eos % (Auto) 3.1 Baso % (Auto) 0.6 Lymph # (Auto) 2.52 [place] # (Auto) 0.6 Eos # (Auto) 0.2 Baso # (Auto) 0.0 Abs Immat Gran (auto) 0.02 Absolute Neuts (auto) 3.8 Absolute Nucleated RBC 0.000 Nucleated RBC % 0.0 Sodium 135 L Potassium 4.3 Chloride 102 Carbon Dioxide 25 Anion Gap 8 BUN 11 Creatinine 0.83 Estim Creat Clear Calc 142 Estimated GFR > 60 Glucose 133 H Calcium 8.9 Magnesium 1.9 Total Bilirubin 0.3 AST 20 ALT 17 Alkaline Phosphatase 65 Total Protein 6.7 Albumin 3.6
--- NOTE | 2025-04-09 10:10 | P.PNIM_ITS ---
Progress Note: A&P Assessment and Plan (1) Cellulitis: Qualifiers: Laterality: left Site of cellulitis: extremity Site of cellulitis of extremity: lower extremity Qualified Code(s): L03.116 - Cellulitis of left lower limb Code(s): L03.90 - Cellulitis, unspecified Status: Acute Assessment and Plan: Patient presents with left thigh pain and found to have cellulitis with abscess despite outpatient Bactrim started on 04/01/25 Failure of outpatient antibiotics Patient declined I&D of small fluctuant area in ER and was started IV vancomycin General Surgery consulted and patient underwent I&D 04/07 with purulent drainage noted. BCx NGTD WCx growing moderate growth of Staph aureus. WBC was normal and remains normal Continue Vanco, pharmacy to dose. Continue current pain management. Follow-up on WCx results. Appreciate General Surgery input (2) RIDGE (acute kidney injury): Code(s): N17.9 - Acute kidney failure, unspecified Status: Acute Assessment and Plan: Patient was on Bactrim since 04/01/25 Admission Cr 1.07 with normal baseline. She received one liter IV fluids in ER Mildly elevated Cr felt related to Bactrim (known side effect) Cr normal now. Follow (3) Prediabetes: Code(s): R73.03 - Prediabetes Status: Acute Assessment and Plan: Glucose mildly elevated. A1c 6.0. She does have +FmHx for DM. Educated about the benefits of weight loss and exercise. Provide information about healthy lifestyle eating habits. Diab Educator to see given her high risk of developing DM. (4) Morbid obesity: Code(s): E66.01 - Morbid (severe) obesity due to excess calories Status: Acute Assessment and Plan: BMI 58. Long discussion about the benefits of weight management and exercise. All questions answered. Plan DVT Prophylaxis - Lovenox Code status - Full Subjective Date/time seen: 04/09/25 10:10 Interval history: 39yo healthy female presents with left thigh pain and found to have cellulitis and abscess. Assuming care. Chart reviewed. She feels well. No CP or SOB. No n/v. She is walking to the bathroom and lwg pain is not as severe. She does have a fm hx of DM. Exam Narrative: AF 97.7 122/60 66 20 100% ra Gen - NARD Chest - CTA bilaterally, nml RR CV - RRR S1/S2 Abd - Soft, obese, NT Ext - No pedal edema. Neuro - Alert and appropriate Psych - Nml mood and affect Skin - Warm and dry. Left medial thigh dressing clean and dry. no surrounding edema. Objective Data Vital Signs Vital Signs: Vital Signs - 24 hr 04/08/25 14:00 04/08/25 22:06 04/09/25 06:00 Temperature 97.4 F L 98.1 F 97.7 F Pulse Rate 74 71 66 Respiratory Rate 18 20 20 Blood Pressure 129/62 156/88 H 122/60 Pulse Oximetry 100 100 100 Oxygen Delivery 04/09/25 08:00 Temperature Pulse Rate Respiratory Rate Blood Pressure Pulse Oximetry Oxygen Delivery Room Air Intake/Output Intake/Output: Intake & Output 04/06/25 04/07/25 04/08/25 04/09/25 23:59 23:59 23:59 23:59 Intake Total 500 1580 2920 440 Balance 500 1580 2920 440 Meds/Results Medications: Active Medications Generic Name Dose Route Start Last Admin Trade Name Freq PRN Reason Stop Dose Admin Acetaminophen 650 mg 04/06/25 21:54 04/07/25 17:55 Acetaminophen 325 Mg Tablet PO 650 mg Q4H PRN Administration Pain Rated 5 or Less or Fever Hydrocodone Bitart/Acetaminophen 1 tab 04/06/25 21:54 04/09/25 02:51 Hydrocodone/Acetaminophen (*Crx) 5-325 Mg Tablet PO 1 tab Q4H PRN Administration Pain Rated 6 or Greater Albuterol 2 puff 04/06/25 21:58 Albuterol Sulfate (*Sp) Aerosol 1 Puff INHALATION Q6HRT PRN shortness of breath or wheezing Enoxaparin Sodium 40 mg 04/07/25 21:00 04/09/25 09:04 Enoxaparin 40 Mg/0.4 Ml Syringe SUB-Q 40 mg Q12HR SIDRA Administration Vancomycin HCl 2,000 mg in 500 mls @ 250 mls/hr 04/08/25 09:00 04/09/25 09:03 Vancomycin 2,000 Mg/Ns 500 Ml IVPB 250 mls/hr Q12H SIDRA Administration Morphine Sulfate 2 mg 04/08/25 10:51 04/09/25 09:43 Morphine Sulfate (*Crx) 2 Mg/Ml Inj IV PUSH 2 mg Q4H PRN Administration Pain Rated 7-10 Ondansetron HCl 4 mg 04/06/25 21:54 Ondansetron Inj 4 Mg/2 Ml Vial IV PUSH Q4H PRN Nausea And Vomiting Labs Labs: Laboratory Results - last 24 hr 04/09/25 05:12 WBC 7.1 RBC 3.89 L Hgb 11.1 L Hct 33.9 L MCV 87.1 MCH 28.5 MCHC 32.7 RDW 12.2 Plt Count 353 MPV 10.0 Immature Gran % (Auto) 0.3 Neut % (Auto) 52.7 Lymph % (Auto) 35.4 [place] % (Auto) 7.9 Eos % (Auto) 3.1 Baso % (Auto) 0.6 Lymph # (Auto) 2.52 [place] # (Auto) 0.6 Eos # (Auto) 0.2 Baso # (Auto) 0.0 Abs Immat Gran (auto) 0.02 Absolute Neuts (auto) 3.8 Absolute Nucleated RBC 0.000 Nucleated RBC % 0.0 Sodium 135 L Potassium 4.3 Chloride 102 Carbon Dioxide 25 Anion Gap 8 BUN 11 Creatinine 0.83 Estim Creat Clear Calc 142 Estimated GFR > 60 Glucose 133 H Calcium 8.9 Magnesium 1.9 Total Bilirubin 0.3 AST 20 ALT 17 Alkaline Phosphatase 65 Total Protein 6.7 Albumin 3.6
[2025-04-09 14:00] VITALS: BP 124/55; PULSE 100; RESP 18; TEMP 36.6; O2SAT 99
[2025-04-09 14:35] VITALS: BMI 57.7
[2025-04-09 20:27] VITALS: BP 123/64; PULSE 78; RESP 18; TEMP 36.7; O2SAT 99
[2025-04-09 20:49] LABS: Vancomycin Trough 10.4 ug/mL (10.0-20.0)
[2025-04-10] MEDS: HYDROcodone/acetaminophen (*CRX) 5-325 MG TABLET 1 TAB PO ×2 (01:12→09:06)
[2025-04-10 04:21] VITALS: BP 112/71; PULSE 64; RESP 16; TEMP 36.3; O2SAT 99
[2025-04-10 06:07] LABS: Basophils Percent Auto 0.5 % (0.2-1.2); Eosinophils Absolute Auto 0.2 K/mm3 (0-0.3); Eosinophils Percent Auto 1.9 % (0-4.4); Hematocrit 33.4 % (37.0-47.0); Immature Granulocyte Absolute 0.04 K/mm3 (0.00-0.031); Immature Granulocyte Percent A 0.5 % (0-0.5); Lymphocytes Absolute Auto 2.18 K/mm3 (0.9-3.2); Lymphocytes Percent Auto 26.2 % (18.3-44.2); Mean Corpuscular HGB Conc 32.9 g/dl (32-36); Mean Corpuscular Hemoglobin 28.6 pg (26-34); Mean Corpuscular Volume 86.8 fl (80-100); Mean Platelet Volume 9.5 fl (7.4-10.4); Monocytes Absolute Auto 0.7 K/mm3 (0.1-0.6); Monocytes Percent Auto 7.8 % (2.6-8.5); Neutrophils Absolute Auto 5.2 K/mm3 (1.3-6.7); Neutrophils Percent Auto 63.1 % (45.5-73.1); Platelet Count Result 349 k/mm3 (150-375); Red Blood Count 3.85 M/mm3 (4.2-5.4); Red Cell Distribution Width 12.1 % (11.5-14.5); White Blood Count 8.3 K/mm3 (4.5-10.0)
[2025-04-10 06:16] LABS: Alanine Aminotransferase 19 U/L (6-35); Albumin Level 3.8 g/dL (3.5-5.1); Alkaline Phosphatase 64 U/L (38-126); Anion Gap 7 mmol/L (4-12); Aspartate Amino Transferase 23 U/L (14-36); Bilirubin,Total 0.2 mg/dL (0.2-1.3); Blood Urea Nitrogen 11 mg/dL (7-17); Calcium 8.7 mg/dL (8.4-10.2); Carbon Dioxide 27 mmol/L (22-30); Chloride 102 mmol/L (98-107); Estimated CRCL calculation 143 ml/min; Estimated Glomerular Filt Rate > 60; Glucose 124 mg/dL (65-110); Sodium 136 mmol/L (137-145); Total Protein 7.1 g/dL (6.3-8.2)
[2025-04-10] MEDS: VANCOMYCIN 2,000 MG/NS 500 ML 2,000 MG/500 ML BAG 250 MG IVPB (08:38)
[2025-04-10] MEDS: ENOXAPARIN 40 MG/0.4 ML SYRINGE SUB-Q (08:38)
--- NOTE | 2025-04-10 09:45 | P.PNGS_ITS ---
Progress Note: A&P Assessment and Plan (1) Abscess of left thigh: Code(s): L02.416 - Cutaneous abscess of left lower limb Status: Acute Assessment and Plan: * S/p I&D left thigh abscess, which is adequately drained. Cultures showing growth of staph aureus, sensitivities pending. * Okay to discharge on empiric oral abx from a surgical standpoint with gauze dressing changes. F/u with Dr. Lozano in 2 weeks. (2) Prediabetes: Code(s): R73.03 - Prediabetes Status: Acute Assessment and Plan: * Newly diagnosed. Management per Hospitalist. Recommended establishing care with PCP. Plan I have discussed the patient's case and plan of care with Dr. Lozano. Subjective Subjective Date/Time Seen: 04/10/25 09:45 Patient reports: no new complaints, feels better, pain is less and afebrile Interval history: No acute events overnight. She reports only having pain in her left thigh during dressing change today. Otherwise, swelling and pain is much better. Exam Narrative: Left medial thigh dressing and packing removed. No purulent drainage noted today. Induration/swelling significantly improved. Much less tender. Const: General: comfortable and no acute distress Objective Data Vital Signs Vital Signs: Vital Signs - 24 hr 04/09/25 14:00 04/09/25 20:15 04/09/25 20:27 Temperature 97.9 F 98.1 F Pulse Rate 100 78 Respiratory Rate 18 18 Blood Pressure 124/55 L 123/64 Pulse Oximetry 99 99 Oxygen Delivery Room Air 04/10/25 04:21 Temperature 97.3 F L Pulse Rate 64 Respiratory Rate 16 Blood Pressure 112/71 Pulse Oximetry 99 Oxygen Delivery Intake/Output Intake/Output: Intake & Output 04/07/25 04/08/25 04/09/25 04/10/25 23:59 23:59 23:59 23:59 Intake Total 1580 2920 2584 908 Balance 1580 2920 2584 908 Meds/Results Medications: Active Medications Generic Name Dose Route Start Last Admin Trade Name Freq PRN Reason Stop Dose Admin Acetaminophen 650 mg 04/06/25 21:54 04/07/25 17:55 Acetaminophen 325 Mg Tablet PO 650 mg Q4H PRN Administration Pain Rated 5 or Less or Fever Hydrocodone Bitart/Acetaminophen 1 tab 04/06/25 21:54 04/10/25 09:06 Hydrocodone/Acetaminophen (*Crx) 5-325 Mg Tablet PO 1 tab Q4H PRN Administration Pain Rated 6 or Greater Albuterol 2 puff 04/06/25 21:58 Albuterol Sulfate (*Sp) Aerosol 1 Puff INHALATION Q6HRT PRN shortness of breath or wheezing Enoxaparin Sodium 40 mg 04/07/25 21:00 04/10/25 08:38 Enoxaparin 40 Mg/0.4 Ml Syringe SUB-Q 40 mg Q12HR SIDRA Administration Vancomycin HCl 2,000 mg in 500 mls @ 250 mls/hr 04/08/25 09:00 04/10/25 08:38 Vancomycin 2,000 Mg/Ns 500 Ml IVPB 250 mls/hr Q12H SIDRA Administration Morphine Sulfate 2 mg 04/08/25 10:51 04/09/25 09:43 Morphine Sulfate (*Crx) 2 Mg/Ml Inj IV PUSH 2 mg Q4H PRN Administration Pain Rated 7-10 Ondansetron HCl 4 mg 04/06/25 21:54 Ondansetron Inj 4 Mg/2 Ml Vial IV PUSH Q4H PRN Nausea And Vomiting Labs Labs: Laboratory Results - last 24 hr 04/09/25 04/10/25 19:58 05:55 WBC 8.3 RBC 3.85 L Hgb 11.0 L Hct 33.4 L MCV 86.8 MCH 28.6 MCHC 32.9 RDW 12.1 Plt Count 349 MPV 9.5 Immature Gran % (Auto) 0.5 Neut % (Auto) 63.1 Lymph % (Auto) 26.2 [place] % (Auto) 7.8 Eos % (Auto) 1.9 Baso % (Auto) 0.5 Lymph # (Auto) 2.18 [place] # (Auto) 0.7 H Eos # (Auto) 0.2 Baso # (Auto) 0.0 Abs Immat Gran (auto) 0.04 H Absolute Neuts (auto) 5.2 Absolute Nucleated RBC 0.000 Nucleated RBC % 0.0 Sodium 136 L Potassium 4.0 Chloride 102 Carbon Dioxide 27 Anion Gap 7 BUN 11 Creatinine 0.82 Estim Creat Clear Calc 143 Estimated GFR > 60 Glucose 124 H Calcium 8.7 Magnesium 2.0 Total Bilirubin 0.2 AST 23 ALT 19 Alkaline Phosphatase 64 Total Protein 7.1 Albumin 3.8 Vancomycin Trough 10.4
[2025-04-10 13:53] VITALS: BP 116/41; PULSE 80; RESP 18; TEMP 36.6; O2SAT 100
--- NOTE | 2025-04-10 13:56 | PM.DS ---
DS: Admitting Diagnosis Discharge Date 04/10/2025 Admitting Diagnosis cellulitis tristen prediabetes morbid obesity DS: Discharge Diagnosis Discharge Diagnosis (1) Cellulitis: Qualifiers: Laterality: left Site of cellulitis: extremity Site of cellulitis of extremity: lower extremity Qualified Code(s): L03.116 - Cellulitis of left lower limb Code(s): L03.90 - Cellulitis, unspecified Status: Acute (2) TRISTEN (acute kidney injury): Code(s): N17.9 - Acute kidney failure, unspecified Status: Acute (3) Prediabetes: Code(s): R73.03 - Prediabetes Status: Acute (4) Morbid obesity: Code(s): E66.01 - Morbid (severe) obesity due to excess calories Status: Acute DS: Summary Hospital Course Reason for hospitalization: cellulitis tristen prediabetes morbid obesity Hospital Course: 39-year-old female with no significant past medical history presents to the hospital with left thigh pain and found to has cellulitis with abscess formation. Patient previously evaluated in the ED on 04/01 and was discharged home on Bactrim however patient failed outpatient antibiotic course and was readmitted on 04/06. On admission patient was noted to have a slight TRISTEN likely related to her outpatient Bactrim use. Received IV fluids and this resolved prior to discharge. Soft tissue ultrasound of the medial thigh was obtained and showed irregularly shaped complex area in the left medial upper thigh measuring 2.7 x 4 x 1.1 cm which may be inflammatory in nature versus a small hematoma. Patient was started on IV antibiotics at that time. General Surgery consulted and patient underwent I&D 04/07 with purulent drainage noted. Blood cultures were obtained on and continue to show no growth to date. Wound culture grew MRSA. Patient transition to oral antibiotics at time of discharge per wound culture susceptibilities. Per General surgery patient was ready for discharge from their perspective with follow-up in 2 weeks. During admission glucose remained mildly elevated and A1c was 6.0. Given concern for prediabetes educated patient on healthy diet, exercise and lifestyle changes. She stated understanding prior to discharge. She is to follow up with PCP in regards to prediabetes management. Patient had no complaints at time of discharge denying chest pain, shortness a breath, palpitations, nausea/vomiting, abdominal pain, and dizziness/lightheadedness/weakness. Patient discharged home with family in a stable condition. She is to follow up with her primary care provider in 1 week and surgery as scheduled. Status at Discharge Functional status at discharge: independent ambulation Time Spent with Patient Time attestation: Total time spent providing and/or coordinating discharge services: Time spent: Greater than 30 minutes Exam Narrative: AF HR 80 RR 18 SPO2 100 Bp 116/41 General: obese female in no acute respiratory distress who is nontoxic appearing, lying semi recumbent in bed. HEENT: Normocephalic. Atraumatic. Extraocular movement intact. Sclera clear and anicteric. No facial asymmetry. Chest: Lungs are clear to auscultation bilaterally. No wheezes or crackles. CV: Heart was regular rate and rhythm. Abd: Abdomen was soft. Nontender. Nondistended. Positive bowel sounds. Ext: Left medial thigh wound without redness, purulent drainage, or edema. Dressing clean/dry/intact with packing in place. Slight tenderness. DS: Data Data Completed and Pending Completed studies during hospitalization: soft tissue US Labs on day of discharge: Labs from last 24 hours 04/10/25 04/09/25 05:55 19:58 WBC 8.3 RBC 3.85 L Hgb 11.0 L Hct 33.4 L MCV 86.8 MCH 28.6 MCHC 32.9 RDW 12.1 Plt Count 349 MPV 9.5 Immature Gran % (Auto) 0.5 Neut % (Auto) 63.1 Lymph % (Auto) 26.2 [place] % (Auto) 7.8 Eos % (Auto) 1.9 Baso % (Auto) 0.5 Lymph # (Auto) 2.18 [place] # (Auto) 0.7 H Eos # (Auto) 0.2 Baso # (Auto) 0.0 Abs Immat Gran (auto) 0.04 H Absolute Neuts (auto) 5.2 Absolute Nucleated RBC 0.000 Nucleated RBC % 0.0 Sodium 136 L Potassium 4.0 Chloride 102 Carbon Dioxide 27 Anion Gap 7 BUN 11 Creatinine 0.82 Estim Creat Clear Calc 143 Estimated GFR > 60 Glucose 124 H Calcium 8.7 Magnesium 2.0 Total Bilirubin 0.2 AST 23 ALT 19 Alkaline Phosphatase 64 Total Protein 7.1 Albumin 3.8 Vancomycin Trough 10.4 Preliminary micro results at discharge 04/07/25 11:44 Anaerobic Culture - Preliminary Abscess 04/06/25 19:05 Blood Culture - Preliminary Blood 04/06/25 20:11 Blood Culture - Preliminary Blood Discharge Plan Discharge Attending physician on discharge: Sophia Baez Consulting providers: Tom Marcelo; Rosalee Lozano Discharging Clinician: Eve Santa Anticipated Discharge Date/Time: 04/10/25 13:43 Patient Disposition: Home Activity: may shower Diet: as tolerated Wound Care Instructions: change dressing daily Discharge Instructions: Discharge disposition: Patient admitted to the hospital for cellulitis with abscess to the left thigh Underwent incision and drainage on 04/07 with Coni Villarreal PA-C, culture grew MRSA Continue Levaquin daily, course to be completed on 04/15. Attached is information on this medication. Continue Tylenol for pain, [place] prescribed for break through pain. Attached is information on this medication. Do not drive or operate heavy machinery on this medication. Surgery discharge instructions: Follow-up with Dr. Lozano in 2 weeks for wound recheck. Our office will call you with time/date of appointment. Call sooner with any surgical conerns. [phone] Remove packing tomorrow (04/11/25). You may then shower over the incision and apply gauze dressing daily. Follow up with primary care provider in regards to prediabetes Strongly encourage healthy diet and exercise Take caution while standing, rising, or moving Change positions slowly taking a break between each position change If you standing feel dizzy sit back down and take a break Encouraged to continue with yearly vaccinations Return to the emergency department if he developed sudden shortness of breath, chest pain, nausea, vomiting, upset stomach or intractable diarrhea Return to the emergency department if you develop fever greater than 101.5 Follow-up with the primary care physician within 1-2 weeks Thank you for [facility] for your healthcare needs Patient Instructions: Antibiotic Form, Hydrocodone/Acetaminophen (By mouth), Levofloxacin (By mouth), MRSA (Methicillin-Resistant Staphylococcus Aureus) (DC), Cellulitis (GEN), Weight Management (DC), Abscess Incision and Drainage (DC) Patient Language: [place] Stand Alone Forms: General Discharge Information, Work/School Release IP Follow-up/Referrals: Rosalee Lozano MD [Physician] - 2 Weeks PHYSICIAN,CONVERTING SUPERVISOR [Primary Care Provider] - Discharge Medications: New hydrocodone-acetaminophen 5-325 mg Tablet 1 tablet PO Q4H PRN (Reason: Pain Rated 6 Or Greater) Qty: 6 0RF levofloxacin 750 mg tablet 750 mg PO DAILY 5 Days Qty: 5 0RF Continued albuterol sulfate [Ventolin HFA] 90 mcg/actuation HFA aerosol inhaler 2 puff inhalation QID PRN (Reason: shortness of breath or wheezing) Qty: 8.5 0RF Discontinued sulfamethoxazole-trimethoprim [Bactrim DS] 800-160 mg tablet 1 tablet PO Q12H 7 Days Qty: 14 0RF Date of admission: 04/08/25 13:06 Primary Care Provider: PHYSICIAN,CONVERTING SUPERVISOR Admitting Provider: Daniel Redding Attending physician on admission: Eve Santa Condition: Stable Hospitalist MIPS Heart Failure (Exclusion) Patient has history of Heart Transplant or Left Ventricular Assistive Device?: No IF YES, STOP HERE Heart Failure (Qualifier) Patient has current or prior documentation of LVEF less than or equal to 40%, or mod/servere depressed LVSF?: No IF NO, STOP HERE
--- NOTE | 2025-04-16 16:01 | PCCDE ---
DM educator courtesy follow up call placed. Denies questions/concerns related to Pre - DM Advised re: [employer] and Pre-DM /Prevent DM programs.
== END 2025-04-10 14:25 | disposition home or self-care (01) | DRG 364 ==
LOC: ANHED 18:34 → ANH3MED 19:09
PROVIDERS: Nurse Practitioner; Admitting Provider General Practice; Emergency Provider Physician Assistant; Visit Provider Student in an Organized Health Care Education/Training Program
DX: L02.416 Cutaneous abscess of left lower limb (principal); L03.116 Cellulitis of left lower limb; F17.210 Nicotine dependence, cigarettes, uncomplicated; N17.9 Acute kidney failure, unspecified; R73.03 Prediabetes; E66.01 Morbid (severe) obesity due to excess calories; Z68.43 Body mass index [BMI] 50.0-59.9, adult; B95.62 Methicillin resistant Staphylococcus aureus infection as the cause of diseases classified elsewhere
CPT/HCPCS: 36415; 76882; 80048; 80053; 80202; 82550; 83036; 83605; 83735; 84145; 85025; 85652; 86140; 87040; 87070; 87075; 87181; 87205; 96365; 99285; A9270; G0378; J1650; J2270; J3370; J7030

== ENCOUNTER 2025-04-12 12:33 | Inpatient (IN) | payer OTHER, SELFPAY ==
[2025-04-12 12:37] VITALS: BP 122/86; PULSE 105; RESP 20; TEMP 36.8; O2SAT 100
--- OUTSIDE RECORDS SUMMARY | 2025-04-12 12:42 | XMS_ITS | Data Portability ---
Author Organization [facility] Address [address] [place] [address] Assessment No assessment recorded. Plan of Treatment Reminders Order Date Submit Date Provider Last Modified By Organization Details Last Modified Time Details Appointments None recorded. Lab bacterial vaginosis + vaginitis panel, vaginal 2017 018 [facility], [address] [place] [address], [address], [place], [address], 8 09:07:41 HSV (1+2) DNA, qual, PCR, unspecifie d specimen 2017 018 [facility], [address] [place] [address], [address], [place], [address], 8 09:07:42 pap, IG + HPV, cervical 2017 018 [facility], [address] [place] [address], [address], [place], [address], 8 14:13:49 urinalysis , dipstick 2017 018 [email or web address] In-Office Order, Internal Use Only DO Not Attach Compendium DO Not Attach Compendium, Do Not Delete/merge, [id number] 8 15:15:15 test, urine 2017 018 [email or web address] In-Office Order, Internal Use Only DO Not Attach Compendium DO Not Attach Compendium, Do Not Delete/merge, [id number] 8 15:15:15 hepatitis panel (A+B+C), acute, serum 2017 [facility], [address], [address], [place], [address], 8 20:09:19 hepatitis B surface Ab, qualitativ e, serum 2017 [facility], [address], [address], [place], [address], 8 20:09:20 HIV 1+2 AB + HIV 1 p24 Ag, qualitativ e immunoassa y, serum 2017 [facility], [address], [address] [facility], [place], [address], 8 20:09:21 treponema pallidum screen, serum, reflex confirmati on 2017 [facility]), Patient Can Go To The Location Of Their Choice, [id number] 8 20:09:20 HSV 2 IgG Ab, QN, IA, serum 2017 [facility]), Patient Can Go To The Location Of Their Choice, [id number] 8 20:09:21 Referral None recorded. Procedures None recorded. Surgeries None recorded. Imaging None recorded. Medication Orders Tablet 28 mg iron-800 mcg 2017 [id number], [address], [place], [id number], 8 15:19:29 Mirena 21 mcg/24 hr (up to 8 years) 52 mg intrauteri ne device 2017 [email or web address] [facility] #[id number], [address], [place], [id number], 9 14:00:52 Ortho Tri-Cyclen (28) 0.18 mg(7)/0.21 5mg(7)/0.2 5 mg(7)-0.03 5 mg tablet 2017 018 [facility][id number] [address] [place], [place], [id number], 8 15:35:46 Patient TargetsNo targets recorded. Patient Instructions Encounter Date Encounter Id Patient Instructions Last Modified By Organization Details Last Modified Time 10/16/2018 [id number] When You Want to Lose Weight: Care [...] DO Not Attach Compendium, Do Not Delete/merge, [id number] 10/16/2018 15:08:44 10/16/20 18 10/16/2018 urina lysis , dipst ick Leukocytes Negati ve Not Available In-Office Order Internal Use Only DO Not Attach Compendium DO Not Attach Compendium, Do Not Delete/merge, [id number] 10/16/2018 15:08:43 10/16/20 18 10/16/2018 urina lysis , dipst ick Nitrite negati ve Not Available In-Office Order Internal Use Only DO Not Attach Compendium DO Not Attach Compendium, Do Not Delete/merge, [id number] 10/16/2018 15:08:43 10/16/20 18 10/16/2018 urina lysis , dipst ick Urobilinogen .2 Not Available In-Of fice Order Internal Use Only DO Not Attach Compendium DO Not Attach Compendium, Do Not Delete/merge, [id number] 10/16/2018 15:08:43 10/16/20 18 10/16/2018 urina lysis , dipst ick Protein Negati ve Not Available In-Office Order Internal Use Only DO Not Attach Compendium DO Not Attach Compendium, Do Not Delete/merge, [id number] 10/16/2018 15:08:43 10/16/20 18 10/16/2018 urina lysis , dipst ick pH 6.0 Not Available In-Office Order Internal Use Only DO Not Attach Compendium DO Not Attach Compendium, Do Not Delete/merge, [id number] 10/16/2018 15:08:43 10/16/20 18 10/16/2018 urina lysis , dipst ick Blood Negati ve Not Available In-Office Order Internal Use Only DO Not Attach Compendium DO Not Attach Compendium, Do Not Delete/merge, [id number] 10/16/2018 15:08:43 10/16/20 18 10/16/2018 urina lysis , dipst ick Specific [place] 1.015 Not Available In-Off ice Order Internal Use Only DO Not Attach Compendium DO Not Attach Compendium, Do Not Delete/merge, [id number] 10/16/2018 15:08:43 10/16/20 18 10/16/2018 urina lysis , dipst ick Ketone Negati ve Not Available In-Office Order Internal Use Only DO Not Attach Compendium DO Not Attach Compendium, Do Not Delete/merge, [id number] 10/16/2018 15:08:43 10/16/20 18 10/16/2018 urina lysis , dipst ick Bilirubin Negati ve Not Available In-Office Order Internal Use Only DO Not Attach Compendium DO Not Attach Compendium, Do Not Delete/merge, [id number] 10/16/2018 15:08:43 10/16/20 18 10/16/2018 urina lysis , dipst ick Glucose Negati ve Not Available In-Office Order Internal Use Only DO Not Attach Compendium DO Not Attach Compendium, Do Not Delete/merge, [id number] 10/16/2018 15:08:43 10/16/20 18 10/17/2018 hepat itis panel (A+B+ C), acute , serum hep A Ab, IgM Negati ve negati ve Not Available [facility] ([facility]) [address], [place], [address], 10/17/2018 20:09:19 10/16/20 18 10/17/2018 hepat itis panel (A+B+ C), acute , serum HBsAg screen Negati ve negati ve Not Available [facility] ([facility]) [address] [facility] [address], [place], [address], 10/17/2018 20:09:19 10/16/20 18 10/17/2018 hepat itis panel (A+B+ C), acute , serum hep B core Ab, IgM Negati ve negati ve Not Available [facility] ([facility]) [address] [facility] [address], [place], [address], 10/17/2018 20:09:19 10/16/20 18 10/17/2018 hepat itis [...] ion test (5507 13). Not Available [facility] ([facility]) [address] [facility] [address], [place], [address], 10/17/2018 20:09:19 10/16/20 18 10/17/2018 hepat itis B surfa ce Ab, quali tativ e, serum hep B surface Ab, qual Reacti ve Non React renetta: Incon siste nt with immun ity, less than 10 mIU/m L React renetta: Consi stent with immun ity, great er than 9.9 mIU/m L Not Available [facility] ([facility]) [address] [facility] [address], [place], [address], 10/17/2018 20:09:20 10/16/20 18 10/17/2018 trepo nema palli dum scree n, serum , refle x confi rmati on T pallidum antibodies Negati ve negati ve Not Available [facility] ([facility]) [address] [facility] [address], [place], [address], 10/17/2018 20:09:20 10/16/20 18 10/17/2018 HIV 1+2 AB + HIV 1 p24 Ag, quali tativ e immun oassa y, serum HIV screen 4TH generation wrfx Non Reacti ve non reacti ve Not Available [facility] ([facility]) [address] [facility] [address], [place], [address], 10/17/2018 20:09:20 10/16/20 18 10/17/2018 HSV 2 [...] mario to HSV-2 . Not Available [facility] ([facility]) [address] [facility] [address], [place], [address], 10/17/2018 20:09:21 10/16/20 18 10/18/2018 pap, IG [...] FOR INTER PRETA TION. Not Available [facility] ([facility]) [address] [facility] [address], [place], [address], 10/18/2018 14:13:49 10/16/20 18 10/18/2018 pap, IG + HPV, cervi kacey specimen adequacy: Mariaa srivastava Satis facto ry for evalu ation . Endoc ervic al and/o r squam ous metap lasti c cells (endo cervi kacey compo nent) are prese nt. Parti ally obscu ring thick areas are prese nt. Not Available [facility] ([facility]) [address] [place], [address], 10/18/2018 14:13:49 10/16/20 18 10/18/2018 pap, IG + HPV, cervi kacey clinician provided ICD10: Mariaa srivastava Z01.4 19 Not Available [facility] ([facility]) [address] [place], [address], 10/18/2018 14:13:49 10/16/20 18 10/18/2018 pap, IG + HPV, cervi kacey performed by: Mariaa Keita rs, Cytot tiffanie srivastava (ASCP ) Not Available [facility] ([facility]) [address] [place], [address], 10/18/2018 14:13:49 10/16/20 18 10/18/2018 pap, IG + HPV, cervi kacey . . Not Available [facility] ([facility]) [address] [place], [address], 10/18/2018 14:13:49 10/16/20 18 10/18/2018 pap, IG [...] ts do occur . Not Available [facility] ([facility]) [address] [place], [address], 10/18/2018 14:13:49 10/16/20 18 10/18/2018 pap, IG + HPV, cervi kacey test methodology: Commen t This liqui d based ThinP rep(R ) pap test was salbador garcia with the use of an image guide dalia de la vega Not Available [facility] ([facility]) [address] [place], [address], 10/18/2018 14:13:49 10/16/20 18 10/18/2018 pap, IG + HPV, cervi kacey HPV aptima Negati ve negati ve This test detec ts fourt een high- risk HPV types (16/1 8/31/ 33/35 /39/4 5/ 51/52 /56/5 8/59/ 66/68 ) witho ut tiffaniee neeraj ation . Not Available [facility] ([facility]) [address] [place], [address], 10/18/2018 14:13:49 10/16/20 18 10/19/2018 bacte rial vagin osis + vagin itis panel , vagin al trich vag by TAI Negati ve negati ve Not Available [facility] ([facility]) [address] [place], [address], 10/24/2018 09:07:41 10/16/20 18 10/19/2018 bacte rial vagin osis + vagin itis panel , vagin al chlamydia trachomatis, TAI Positi ve negati ve abnormal Not Available [facility] ([facility]) [address] [place], [address], 10/24/2018 09:07:41 10/16/20 18 10/19/2018 bacte rial vagin osis + vagin itis panel , vagin al neisseria gonorrhoeae, TAI Negati ve negati ve Not Available [facility] ([facility]) [address] [place], [address], 10/24/2018 09:07:41 10/16/20 18 10/21/2018 bacte rial vagin osis + vagin itis panel , vagin al atopobium vaginae Modera te - 1 score Not Available [facility] ([facility]) [address] [place], [address], 10/24/2018 09:07:41 10/16/20 18 10/21/2018 bacte rial vagin osis + vagin itis panel , vagin al bvab 2 High - 2 score abnormal Not Available [facility] ([facility]) [address] [place], [address], 10/24/2018 09:07:41 10/16/20 18 10/21/2018 bacte rial [...] is not neces vivian. Not Available [facility] ([facility]) [address] [facility] [address], [place], [address], 10/24/2018 09:07:41 10/16/20 18 10/24/2018 bacte rial vagin osis + vagin itis panel , vagin al martín albicans, TAI Negati ve negati ve Not Available [facility] ([facility]) [address] [facility] [address], [place], [address], 10/24/2018 09:07:41 10/16/20 18 10/24/2018 bacte rial [...] is not nectr vivian. Not Available [facility] ([facility]) [address] [facility] [address], [place], [address], 10/24/2018 09:07:41 10/16/20 18 10/22/2018 HSV (1+2) DNA, qual, PCR, unspe cifie d speci men hsv 1 TAI Negati ve negati ve Not Available [facility] ([facility]) [address] [place], [address], 10/24/2018 09:07:42 10/16/20 18 10/22/2018 HSV (1+2) DNA, qual, PCR, unspe cifie d speci men hsv 2 TAI Negati ve negati ve Not Available [facility] ([facility]) [address] [place], [address], 10/24/2018 09:07:42 Result Notes None recorded. Problems Name Problem SNOMED Code Status Onset Date Resolution Date Notes Provider Name and Address Organization Details Recorded Time Genital herpes simplex 19147281 Active 2017 Jenny Reynolds MD Attn: Accounting, [address], [place], [address], [facility] 8 13:37:04 Bacterial vaginosis 570155103 Active 2017 Jenny Reynolds MD Attn: Accounting, [address] [place], [address], [facility] 8 09:10:42 Chlamydial cervicitis 178728709 Active 2017 Jenny Reynolds MD Attn: Accounting, [address] [facility], [place], [address], [facility] 8 09:10:57 Problem Notes None recorded. Procedures Surgical History Date Name Laterality Status Provider Name and Address Organization Details Recorded Time cholecystectomy completed Khai Pizarro MA [facility] 10/16/2018 15:06:03 tonsillectomy completed Khai Pizarro MA [facility] 10/16/2018 15:06:19 Imaging Results None recorded. Procedure [...] Address Organization Details Last Updated DateTime 10/16/2018 968954.07 g 126 mm[Hg] 82 mm[Hg] Khai Pizarro MA [facility] 10/16/2018 14:59:31 Social History Question Answer Notes LastModified by Organizat ion Details LastModified Time Tobacco Smoking Status Current Every Day Smoker Khai Pizarro MA null, [facility] 10/16/2018 15:03:31 Do You Have An Advance Directive? 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 None Information not available 10/16/2018 Mental Status None recorded. Family History Relationship Description Onset Age of this Age Resolved Age Notes LastModified by Organization Details LastModified Time Father No current problems or disability [email or web address] Not available 09/29 15:03:17 Mother No current problems or disability [email or web address] Not available 09/29 15:03:17 Medical History Condition [...] Recorded Time HPV9 10/16/2018 completed Not Available [facility] 11/16/2019 02:41:28 Past Encounters Encounter ID Performer Location Encounter Start Date Encounter Closed Date Diagnosis/Indication Diagnosis SNOMED-CT Code Diagnosis ICD10 Code Diagnosis Note [id number] MD Lorena Pompa (PHOTOENGRAVER) [address] [place] [address] 10/16/2018 14:41:44 10/16/2018 16:37:27 Gynecologic examination 91768718 Z01.419 Age appropriat e counseling done. Venereal d isease screening 570593867 Z11.3 Z20.2 Obesity 852270656 E66.9 Counseled About weight loss, diet and excercise. 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 Family darinel nning surveillance 711231302 Z30.09 Counseled patient about different forms of [...] is in office. Active or passive immunization 385032321 Z23 Health Concerns Section Related Observation LastModified by Organization Detai ls LastModified Time None Recorded Concern Status LastModified by Organization Details LastModified Time None Recorded Advance Directives Directive N: Payers Insurance Date Sequence Insurance Name Policy Number Policy Pedraza Covered Member ID Pedraza Member ID Guarantor Name 10/16/2018 1 [facility] (MEDICAID HMO) [facility] Dede Lawton [id number] Dede Lawton Notes Date Note Type Note [...] 5 years. Jenny Reynolds MD Attn: Accounting,[address] [place], [address], [place] [facility] 10/16/2018 15:42:32 OBGyn Episode No OBEpisode recorded.
--- NOTE | 2025-04-12 12:44 | ED_ITS ---
HPI - Allergic Reaction General Chief complaint: Allergic Reaction Stated complaint: reaction to antibx Time Seen by Provider: 04/12/25 12:35 History of Present Illness HPI narrative: 39-year-old female with prediabetes presenting to the emergency depart with suspected allergic reaction. She states she took her 1st dose of Levaquin yesterday and started developing a full body rash that is very itchy. Denies any trouble breathing or throat closing or scratchy throat sensations. No fever chills. She was just discharged from the hospital on Levaquin for MRSA coverage of a infected wound to her left medial thigh that required incision and drainage with General surgery. Wound cultures grew out MRSA with multiple resistances. Patient has never had Levaquin or similar antibiotics previously but suspected to be allergic to them. Previously tried Bactrim which the MRSA is also susceptible to but has failed outpatient therapy on this requiring her admission and surgical intervention. Patient denies any new complaints, still having some persistent drainage from the incision site without any bleeding. No subjective fever chills, back pain, nausea, vomiting. Endorses itchy rash that she has taken Benadryl for with some mild relief. Related Data Allergies Allergy/AdvReac Type Severity Reaction Status Date / Time levofloxacin Allergy Mild Rash Verified 04/12/25 12:53 Review of Systems 2 Review of Systems: As reviewed above in HPI [facility] Past Medical History Medical History No active medical problems Surgical History Surgical History History of tonsillectomy History of cholecystectomy Social History Social History Smoking packs per day: 0.12 Smoking cigarettes per day: 2.4 Years smoked: 20 Smoking pack-years: 2.40 Smoking status: Current every day smoker Tobacco type: cigarettes Alcohol intake: never Substance use: current Substance use type: marijuana Last use: 04/06 Do You Feel Safe in your Home?: Yes Lack of Transportation: No Lack of Food: Never True Current Housing: I Have Housing Concerned About Future Housing: No Difficulty Paying Gas/Electric Bills: YES Difficulty Paying for Meds: No Currently Unemployed: No Education: High School Diploma/GED Difficulty w/ Childcare or Family Care: No Spiritual care concerns: No Exam 2 Narrative: GENERAL: Morbidly obese but not any acute distress HEAD: [Normocephalic, atraumatic.] EYES: [PERRLA and EOMI.] ENT: Nares clear, no rhinorrhea or epistaxis. Mucous membranes moist. NECK: Supple. CHEST: [Clear to auscultation. No respiratory distress.] HEART: [Regular rate and rhythm]. No murmur heard. [Normal peripheral pulses.] ABDOMEN: [Soft, nondistended], [nontender], [No rigidity or guarding] EXTREMITIES: Left thigh cellulitis with previous incision and drainage site with scant serosanguineous discharge, no bleeding. Tenderness to palpation without any surrounding erythema but some mild irritation and induration noted. SKIN: Warm, dry, no rash. NEURO: [No focal deficits]. Alert and oriented [x3.] PSYCH: [Normal mood and affect.] Course Vital Signs Vital signs: Vital Signs Temperature 36.8 C 04/12/25 12:37 Pulse Rate 105 H 04/12/25 12:37 Respiratory Rate 20 04/12/25 12:37 Blood Pressure 122/86 04/12/25 12:37 Pulse Oximetry 100 04/12/25 12:37 Oxygen Delivery Room Air 04/12/25 12:37 Temperature 36.8 C 04/12/25 12:37 Pulse Rate 79 04/12/25 14:09 Respiratory Rate 20 04/12/25 14:09 Blood Pressure 118/75 04/12/25 14:09 Pulse Oximetry 100 04/12/25 14:09 Oxygen Delivery Room Air 04/12/25 12:45 MDM - Allergic Reaction MDM Narrative Medical decision making narrative: 39-year-old female who was just discharged from the hospital after left thigh cellulitis requiring incision and drainage. She was discharged home with Levaquin for 5 days for coverage of MRSA. Wound cultures were reviewed from previous admission with multiple drug resistances but susceptibilities to Bactrim and Levaquin derivatives. Patient has never had this medication before and suspected to have an allergic reaction to it as she had diffuse body rash and itchiness after taking her 1st dose. She endorses some scant serosanguineous discharge still from the incision and drainage site but no subjective fever, chills, purulent drainage or worsening symptoms from her admission. She has no signs of anaphylaxis, clear breath sounds, no posterior oropharyngeal swelling, difficulty swallowing or phonation changes. She took Benadryl home with some mild relief of her itchy rash. Levaquin was added to her allergy list. I did review the patient's previous MRSA cultures and there are multiple susceptibilities but to medication she is allergic to. She has already failed Bactrim which is the only oral antibiotic that was otherwise amenable to her treatment course. Discussed this with the patient and we will need to obtain IV access, blood work and start her on IV medications for continued treatment of her cellulitis. CBC, CMP, vancomycin ordered. She was given hydroxyzine and topical Benadryl. No leukocytosis or anemia worse than baseline. Normal electrolytes, normal renal function panel. Mildly elevated LFTs. Discussed with the patient given her allergies and resistance is she would require IV antibiotics or we can try Bactrim once again but she has already failed this outpatient and would not like to be discharged on that. Vancomycin was started with dosing per pharmacy. Patient will be admitted to the hospital and discussed the case with Edith Calvillo the mid-level provider who accepted the patient to the hospitalist service at this time for antibiotics. Patient comfortable with the plan. Medical Records Attestation: I reviewed the patient's medical records. Lab Data Attestation: I reviewed the patient's lab results. 04/12/25 13:04 04/12/25 13:04 Labs: Lab Results 04/12/25 Range/Units 13:04 WBC 7.5 (4.5-10.0) K/mm3 RBC 4.09 L (4.2-5.4) M/mm3 Hgb 11.7 L (12.0-15.0) g/dL Hct 34.8 L (37.0-47.0) % MCV 85.1 (80-100) fl MCH 28.6 (26-34) pg MCHC 33.6 (32-36) g/dl RDW 12.2 (11.5-14.5) % Plt Count 386 H (150-375) k/mm3 MPV 9.4 (7.4-10.4) fl Immature Gran % (Auto) 0.3 (0-0.5) % Neut % (Auto) 60.1 (45.5-73.1) % Lymph % (Auto) 28.2 (18.3-44.2) % [place] % (Auto) 8.4 (2.6-8.5) % Eos % (Auto) 2.3 (0-4.4) % Baso % (Auto) 0.7 (0.2-1.2) % Lymph # (Auto) 2.11 (0.9-3.2) K/mm3 [place] # (Auto) 0.6 (0.1-0.6) K/mm3 Eos # (Auto) 0.2 (0-0.3) K/mm3 Baso # (Auto) 0.1 (0.0-0.1) K/mm3 Abs Immat Gran (auto) 0.02 (0.00-0.031) K/mm3 Absolute Neuts (auto) 4.5 (1.3-6.7) K/mm3 Absolute Nucleated RBC 0.000 (0.0-0.012) K/mm3 Nucleated RBC % 0.0 (0.0-0.2) % Sodium 138 (137-145) mmol/L Potassium 4.1 (3.4-5.0) mmol/L Chloride 104 (98-107) mmol/L Carbon Dioxide 26 (22-30) mmol/L Anion Gap 8 (4-12) mmol/L BUN 9 (7-17) mg/dL Creatinine 1.00 (0.7-1.0) mg/dL Estim Creat Clear Calc 120 ml/min Estimated GFR > 60 (59 - ) Glucose 135 H (65-110) mg/dL Calcium 8.7 (8.4-10.2) mg/dL Magnesium 1.8 (1.6-2.3) mg/dL Total Bilirubin 0.4 (0.2-1.3) mg/dL AST 57 H (14-36) U/L ALT 62 H (6-35) U/L Alkaline Phosphatase 62 (38-126) U/L Total Protein 7.5 (6.3-8.2) g/dL Albumin 3.9 (3.5-5.1) g/dL Discharge Plan Discharge Clinical Impression: MRSA cellulitis Patient Disposition: Still a Patient Condition: Stable Patient Language: Macedonian Prescriptions: No Action albuterol sulfate [Ventolin HFA] 90 mcg/actuation HFA aerosol inhaler 2 puff inhalation QID PRN (Reason: shortness of breath or wheezing) Qty: 8.5 0RF hydrocodone-acetaminophen 5-325 mg Tablet 1 tablet PO Q4H PRN (Reason: Pain Rated 6 Or Greater) Qty: 6 0RF levofloxacin 750 mg tablet 750 mg PO DAILY 5 Days Qty: 5 0RF Follow-up/Referrals: PHYSICIAN,JET MAN [Primary Care Provider] - Time of Disposition: 14:15
[2025-04-12 12:45] VITALS: O2SAT 100
[2025-04-12] MEDS: DIPHENHYDRAMINE 1%/ZINC 0.1% CREAM 30 GM TUBE 1 APPLIC TOPICAL (13:08)
[2025-04-12 13:11] LABS: Basophils Absolute Auto 0.1 K/mm3 (0.0-0.1); Basophils Percent Auto 0.7 % (0.2-1.2); Eosinophils Absolute Auto 0.2 K/mm3 (0-0.3); Eosinophils Percent Auto 2.3 % (0-4.4); Hematocrit 34.8 % (37.0-47.0); Hemoglobin 11.7 g/dL (12.0-15.0); Immature Granulocyte Absolute 0.02 K/mm3 (0.00-0.031); Immature Granulocyte Percent A 0.3 % (0-0.5); Lymphocytes Absolute Auto 2.11 K/mm3 (0.9-3.2); Lymphocytes Percent Auto 28.2 % (18.3-44.2); Mean Corpuscular HGB Conc 33.6 g/dl (32-36); Mean Corpuscular Hemoglobin 28.6 pg (26-34); Mean Corpuscular Volume 85.1 fl (80-100); Mean Platelet Volume 9.4 fl (7.4-10.4); Monocytes Absolute Auto 0.6 K/mm3 (0.1-0.6); Monocytes Percent Auto 8.4 % (2.6-8.5); Neutrophils Absolute Auto 4.5 K/mm3 (1.3-6.7); Neutrophils Percent Auto 60.1 % (45.5-73.1); Platelet Count Result 386 k/mm3 (150-375); Red Blood Count 4.09 M/mm3 (4.2-5.4); Red Cell Distribution Width 12.2 % (11.5-14.5); White Blood Count 7.5 K/mm3 (4.5-10.0)
[2025-04-12 13:24] LABS: Alanine Aminotransferase 62 U/L (6-35); Albumin Level 3.9 g/dL (3.5-5.1); Alkaline Phosphatase 62 U/L (38-126); Anion Gap 8 mmol/L (4-12); Aspartate Amino Transferase 57 U/L (14-36); Bilirubin,Total 0.4 mg/dL (0.2-1.3); Blood Urea Nitrogen 9 mg/dL (7-17); Calcium 8.7 mg/dL (8.4-10.2); Carbon Dioxide 26 mmol/L (22-30); Chloride 104 mmol/L (98-107); Estimated CRCL calculation 120 ml/min; Estimated Glomerular Filt Rate > 60; Glucose 135 mg/dL (65-110); Magnesium 1.8 mg/dL (1.6-2.3); Potassium 4.1 mmol/L (3.4-5.0); Sodium 138 mmol/L (137-145); Total Protein 7.5 g/dL (6.3-8.2)
[2025-04-12] MEDS: VANCOMYCIN 1,500 MG/NS 500 ML 1,500 MG/500 ML BAG 250 MG IVPB (14:06)
[2025-04-12 14:09] VITALS: BP 118/75; PULSE 79; RESP 20; O2SAT 100
--- NOTE | 2025-04-12 14:23 | P.HP_ITS ---
H&P: HPI History of Present Illness Date/Time: 04/12/25 14:23 Chief Complaint: MRSA positive abscess Narrative: 39-year-old patient with past medical history of prediabetes and morbid obesity presented earlier this week to the hospital for cellulitis and a abscess status post I&D on 04/07/2025 was sent home on oral antibiotics and was found to be positive for MRSA and due to drug allergy of levofloxacin and failing outpatient Bactrim she will be admitted for IV antibiotics. Patient states that she took her 1st dose levofloxacin yesterday around noon she states at bedtime she became severely itchy which progressed overnight however she denies any swelling of lips, tongue is or difficulty with his breathing. She is limited on oral antibiotics that she can take so she will be admitted for IV antibiotics. Lab work in the ED shows anemia 11.7, BMP within normal limits, glucose slightly elevated 135, AST 57, ALT 62 not previously elevated, soft tissue ultrasound shows Irregularly shaped complex area in the left medial upper thigh measuring 2.7 x 4 x 1.1 cm which may be inflammatory in nature versus a small hematoma. Patient was started on vancomycin and doxy. Review of Systems Review of Systems: 12 systems were reviewed and are negativ e except for as per HPI. FOR[facility]LY [facility] Past Medical History Medical History No active medical problems Surgical History Surgical History History of tonsillectomy History of cholecystectomy Family History Family History (Updated 04/12/25 @ 16:36 by Yamilka Bentley RN) Mother Pancreatic cancer Diabetes mellitus Social History Social History Smoking packs per day: 0.12 Smoking cigarettes per day: 2.4 Years smoked: 20 Smoking pack-years: 2.40 Smoking status: Former smoker Smoking end date: 03/29/25 Alcohol intake: never Substance use: current Substance use type: marijuana Last use: 04/12 Do You Feel Safe in your Home?: Yes Lack of Transportation: No Lack of Food: Never True Current Housing: I Have Housing Concerned About Future Housing: No Difficulty Paying Gas/Electric Bills: No Difficulty Paying for Meds: No Currently Unemployed: No Education: Decline to Answer Difficulty w/ Childcare or Family Care: No Spiritual care concerns: No Meds Home Medications and Allergies Home Medications ?Medication ?Instructions ?Recorded ?Confirmed ?Type albuterol sulfate 90 mcg/actuation 2 puff inhalation QID PRN 11/30/24 04/12/25 Rx aerosol inhaler (Ventolin HFA) shortness of breath or wheezing #8.5 grams hydrocodone 5 mg-acetaminophen 325 1 tablet PO Q4H PRN Pain Rated 6 04/10/25 04/12/25 Rx mg tablet Or Greater #6 tabs levofloxacin 750 mg tablet 750 mg PO DAILY 5 days #5 tabs 04/10/25 04/12/25 Rx Allergies Allergy/AdvReac Type Severity Reaction Status Date / Time levofloxacin Allergy Mild Rash Verified 04/12/25 12:53 Vital Signs Vital Signs - 24 hr 04/12/25 12:37 04/12/25 12:45 04/12/25 14:09 Temperature 98.3 F Pulse Rate 105 H 79 Respiratory Rate 20 20 Blood Pressure 122/86 118/75 Pulse Oximetry 100 100 100 Oxygen Delivery Room Air Room Air Exam Narrative: General: well appearing, appears stated age. HEENT: normocephalic, atraumatic. Mucous membranes moist. EOMI, PERRLA, bilateral sclera anicteric, no conjunctival injection. Neck supple without JVD, lymphadenopathy, or bruit. Respiratory: clear to ascultation bilaterally. No rales/rhonic/wheezes. Cardiovascular: Regular rate and rhythm, normal S1-S2 upon ascultation. No murmurs, rubs, or clicks. PMI is nondisplaced, capillary refill less than 3 second. Abdomen: Soft, round, no pulsatile masses, nondistended and nontender. No rebound, no guarding. No CVA tenderness, no hepatosplenomegaly. Bowel sounds present to all four quadrants. No high pitch or tinkling sounds, resonant to percussion. Extremities: No cyanosis, clubbing, or edema present. Pulses are palpable 2/2. Right inner thigh with I&D site no erythema or drainage Neuro: Alert and orientated x 4. PERRLA. Cranial nerves 2-12 intact without focal deficit. Skin: Warm, dry, and intact, without rash, erythema, or lesion. Psych: pleasant, cooperative, normal speech, normal affect, no hallucinations, no dysarthia H&P: Results Labs Labs: Short CBC 04/12/25 Range/Units 13:04 WBC 7.5 (4.5-10.0) K/mm3 Hgb 11.7 L (12.0-15.0) g/dL Hct 34.8 L (37.0-47.0) % Plt Count 386 H (150-375) k/mm3 BMP 04/12/25 13:04 Sodium 138 Potassium 4.1 Chloride 104 Carbon Dioxide 26 BUN 9 Creatinine 1.00 Glucose 135 H Calcium 8.7 Liver Function 04/12/25 Range/Units 13:04 Total Bilirubin 0.4 (0.2-1.3) mg/dL AST 57 H (14-36) U/L ALT 62 H (6-35) U/L Alkaline Phosphatase 62 (38-126) U/L Albumin 3.9 (3.5-5.1) g/dL Assessment and Plan Assessment and plan (1) MRSA cellulitis: Code(s): L03.90 - Cellulitis, unspecified; B95.62 - Methicillin resistant Staphylococcus aureus infection as the cause of diseases classified elsewhere Status: Acute Assessment and Plan: Left thigh abscess status post I and D on 04/07/2025 for general surgery, failed outpatient antibiotics Doxy and vancomycin IVF CBC morning Pain management a bowel protocol (2) Morbid obesity: Code(s): E66.01 - Morbid (severe) obesity due to excess calories Status: Acute Assessment and Plan: BMI 58.7 Last week counseled on with diet and exercise (3) Prediabetes: Code(s): R73.03 - Prediabetes Status: Acute Assessment and Plan: Last week counseled on diabetes prevention with diet and exercise 04/08/2025 hemoglobin A1c 6.0 Quality VTE Prophylaxis VTE prophylaxis: mechanical ordered Hospitalist MIPS Advance Care Plan I have confirmed that the patient's Advanced Care Plan is present, code status is documented, or surrogate decision maker is listed in patient medical record.: Yes Medication Reconciliation I have utilized all available resources to obtain, update and review the patients current medications (includes all prescriptions, OTC, herbals, cannabis, and nutritional supplements).: Yes
[2025-04-12 16:07] VITALS: BMI 58.6
[2025-04-12 16:12] VITALS: BP 109/78; PULSE 67; RESP 18; TEMP 36.6; O2SAT 100
[2025-04-12] MEDS: SODIUM CHLORIDE 0.9% IV 1,000 ML 75 ML IV CONT (17:00)
[2025-04-12] MEDS: diphenhydrAMINE HCl CAP 25 MG CAPSULE 50 MG PO (20:08)
[2025-04-12 20:15] VITALS: BP 97/77; PULSE 74; RESP 20; TEMP 36.4; O2SAT 100
[2025-04-13] MEDS: VANCOMYCIN 1,500 MG/NS 500 ML 1,500 MG/500 ML BAG 125 MG IVPB ×2 (02:02→13:53)
[2025-04-13 05:00] VITALS: BP 111/58; PULSE 84; RESP 16; TEMP 36.3; O2SAT 100
[2025-04-13 06:43] LABS: Basophils Absolute Auto 0.1 K/mm3 (0.0-0.1); Basophils Percent Auto 0.8 % (0.2-1.2); Eosinophils Absolute Auto 0.3 K/mm3 (0-0.3); Eosinophils Percent Auto 4.5 % (0-4.4); Hematocrit 31.5 % (37.0-47.0); Hemoglobin 10.3 g/dL (12.0-15.0); Immature Granulocyte Absolute 0.02 K/mm3 (0.00-0.031); Immature Granulocyte Percent A 0.3 % (0-0.5); Lymphocytes Absolute Auto 2.01 K/mm3 (0.9-3.2); Lymphocytes Percent Auto 30.9 % (18.3-44.2); Mean Corpuscular HGB Conc 32.7 g/dl (32-36); Mean Corpuscular Hemoglobin 28.4 pg (26-34); Mean Corpuscular Volume 86.8 fl (80-100); Mean Platelet Volume 9.3 fl (7.4-10.4); Monocytes Absolute Auto 0.7 K/mm3 (0.1-0.6); Neutrophils Absolute Auto 3.5 K/mm3 (1.3-6.7); Neutrophils Percent Auto 53.5 % (45.5-73.1); Platelet Count Result 334 k/mm3 (150-375); Red Blood Count 3.63 M/mm3 (4.2-5.4); Red Cell Distribution Width 12.4 % (11.5-14.5); White Blood Count 6.5 K/mm3 (4.5-10.0)
[2025-04-13 06:59] LABS: Anion Gap 5 mmol/L (4-12); Blood Urea Nitrogen 10 mg/dL (7-17); Carbon Dioxide 24 mmol/L (22-30); Chloride 107 mmol/L (98-107); Estimated CRCL calculation 148 ml/min; Estimated Glomerular Filt Rate > 60; Glucose 127 mg/dL (65-110); Potassium 3.6 mmol/L (3.4-5.0); Sodium 136 mmol/L (137-145)
[2025-04-13] MEDS: ENOXAPARIN 40 MG/0.4 ML SYRINGE SUB-Q (09:07)
[2025-04-13 09:14] VITALS: O2SAT 99
[2025-04-13] MEDS: diphenhydrAMINE HCl CAP 25 MG CAPSULE 50 MG PO ×2 (09:14→23:43)
[2025-04-13] MEDS: SODIUM CHLORIDE 0.9% IV 1,000 ML 75 ML IV CONT (09:14)
--- NOTE | 2025-04-13 09:18 | P.PNIM_ITS ---
Progress Note: A&P Assessment and Plan (1) MRSA cellulitis: Code(s): L03.90 - Cellulitis, unspecified; B95.62 - Methicillin resistant Staphylococcus aureus infection as the cause of diseases classified elsewhere Status: Acute Assessment and Plan: Left thigh abscess status post I and D on 04/07/2025 for general surgery, failed outpatient antibiotics 04/07 Soft tissue US Irregularly shaped complex area in the left medial upper thigh measuring 2.7 x 4 x 1.1 cm which may be inflammatory in nature versus a small hematoma.Clinical correlation and Follow-up advised. --Continue vancomycin --Stop doxy --Stop IVF --CBC morning --Pain management a bowel protocol --Surgery consult in AM --Follow WBC, ESR, CRP --Topical chlorhexadine, dry dressing. Not currently draining but indurated --Mildly elevated lfts, repeat (2) Morbid obesity: Code(s): E66.01 - Morbid (severe) obesity due to excess calories Status: Acute Assessment and Plan: BMI 58.7 Last week counseled on with diet and exercise (3) Prediabetes: Code(s): R73.03 - Prediabetes Status: Acute Assessment and Plan: Last week counseled on diabetes prevention with diet and exercise 04/08/2025 hemoglobin A1c 6.0 (4) Rash: Code(s): R21 - Rash and other nonspecific skin eruption Status: Acute Assessment and Plan: Likely allergy to levaquin (added to allergies) --Start loratadine daily --Benadryl prn Time Spent With Patient Time: 56 minutes Subjective Date/time seen: 04/13/25 09:18 Interval history: Left leg pain minimal, but indurated on exam 04/07 US Irregularly shaped complex area in the left medial upper thigh measuring 2.7 x 4 x 1.1 cm which may be inflammatory in nature versus a small hematoma.Clinical correlation and Follow-up advised. Itching and has a generalized rash Otherwise no complaints. No fevers, nausea/vomiting, or other symptoms Hospital Course 39-year-old patient with past medical history of prediabetes and morbid obesity presented earlier this week to the hospital for cellulitis and a abscess status post I&D on 04/07/2025 was sent home on oral antibiotics and was found to be positive for MRSA and due to drug allergy of levofloxacin and failing outpatient Bactrim admitted for IV antibiotics. Started on IV Vancomycin Review of Systems Review of Systems: 12 systems were reviewed and are negativ e except for as per HPI. Exam Narrative: General - Awake and alert. No acute distress Eyes - PERRLA, EOM intact ENT - No thrush, No erythema Neck - No noticeable or palpable swelling Lymph Nodes - No lymphadenopathy Cardiovascular - RRR no m/r/g, no JVD Lungs: Clear to auscultation, No wheezing, use of accessory muscles, no crackles or wheezes. Skin - Skin warm and dry, no rashes. Left leg wound improving Abdomen - Normal bowel sounds, abdomen soft and nontender Extremities - No edema, cyanosis or clubbing Musculoskeletal - 5/5 strength, normal range of motion, no swollen or erythematous joints. Neurological ? Alert and oriented x 3, CN 2-12 grossly intact. Psych: Normal mood and affect Objective Data Vital Signs Vital Signs: Vital Signs - 24 hr 04/12/25 12:37 04/12/25 12:45 04/12/25 14:09 Temperature 98.3 F Pulse Rate 105 H 79 Respiratory Rate 20 20 Blood Pressure 122/86 118/75 Pulse Oximetry 100 100 100 Oxygen Delivery Room Air Room Air 04/12/25 16:00 04/12/25 16:12 04/12/25 20:00 Temperature 97.9 F Pulse Rate 67 Respiratory Rate 18 Blood Pressure 109/78 Pulse Oximetry 100 Oxygen Delivery Room Air Room Air 04/12/25 20:15 04/13/25 05:00 04/13/25 09:14 Temperature 97.6 F 97.4 F L Pulse Rate 74 84 Respiratory Rate 20 16 Blood Pressure 97/77 L 111/58 L Pulse Oximetry 100 100 99 Oxygen Delivery Room Air Intake/Output Intake/Output: Intake & Output 04/10/25 04/11/25 04/12/25 04/13/25 23:59 23:59 23:59 23:59 Intake Total 740 2300 Balance 740 2300 Meds/Results Medications: Active Medications Generic Name Dose Route Start Last Admin Trade Name Freq PRN Reason Stop Dose Admin Acetaminophen 650 mg 04/12/25 14:28 Acetaminophen 325 Mg Tablet PO Q4H PRN Mild Pain (1-3) or Fever Hydrocodone Bitart/Acetaminophen 1 tab 04/12/25 14:28 Hydrocodone/Acetaminophen (*Crx) 5-325 Mg Tablet PO Q4H PRN Moderate Pain (4-6) Diphenhydramine HCl 50 mg 04/12/25 20:00 04/13/25 09:14 Diphenhydramine Hcl Cap 25 Mg Capsule PO 50 mg Q6H PRN Administration Itching Docusate Sodium 100 mg 04/13/25 09:00 04/13/25 09:07 Docusate Sodium 100 Mg Capsule PO Not Given DAILY SIDRA Enoxaparin Sodium 40 mg 04/13/25 09:00 04/13/25 09:07 Enoxaparin 40 Mg/0.4 Ml Syringe SUB-Q 40 mg DAILY SIDRA Administration Vancomycin HCl 1,500 mg in 500 mls @ 250 mls/hr 04/12/25 14:00 04/13/25 02:02 Vancomycin 1,500 Mg/Ns 500 Ml IVPB 125 mls/hr Q12H SIDRA Administration Sodium Chloride 1,000 mls @ 75 mls/hr 04/12/25 14:30 04/13/25 09:14 Normal Saline Iv IV CONT 75 mls/hr .[id number] SIDRA Administration Zinc Acetate/Diphenhydramine 1 applic 04/12/25 12:43 04/12/25 13:08 Diphenhydramine 1%/Zinc 0.1% Cream 30 Gm Tube TOPICAL 1 applic QID PRN Administration Itching Labs Labs: Laboratory Results - last 24 hr 04/12/25 04/13/25 13:04 06:36 WBC 7.5 6.5 RBC 4.09 L 3.63 L Hgb 11.7 L 10.3 L Hct 34.8 L 31.5 L MCV 85.1 86.8 MCH 28.6 28.4 MCHC 33.6 32.7 RDW 12.2 12.4 Plt Count 386 H 334 MPV 9.4 9.3 Immature Gran % (Auto) 0.3 0.3 Neut % (Auto) 60.1 53.5 Lymph % (Auto) 28.2 30.9 [place] % (Auto) 8.4 10.0 H Eos % (Auto) 2.3 4.5 H Baso % (Auto) 0.7 0.8 Lymph # (Auto) 2.11 2.01 [place] # (Auto) 0.6 0.7 H Eos # (Auto) 0.2 0.3 Baso # (Auto) 0.1 0.1 Abs Immat Gran (auto) 0.02 0.02 Absolute Neuts (auto) 4.5 3.5 Absolute Nucleated RBC 0.000 0.000 Nucleated RBC % 0.0 0.0 Sodium 138 136 L Potassium 4.1 3.6 Chloride 104 107 Carbon Dioxide 26 24 Anion Gap 8 5 BUN 9 10 Creatinine 1.00 0.80 Estim Creat Clear Calc 120 148 Estimated GFR > 60 > 60 Glucose 135 H 127 H Calcium 8.7 8.0 L Magnesium 1.8 Total Bilirubin 0.4 AST 57 H ALT 62 H Alkaline Phosphatase 62 Total Protein 7.5 Albumin 3.9 Quality VTE Prophylaxis VTE prophylaxis: mechanical ordered Hospitalist MIPS Advance Care Plan I have confirmed that the patient's Advanced Care Plan is present, code status is documented, or surrogate decision maker is listed in patient medical record.: Yes Medication Reconciliation I have utilized all available resources to obtain, update and review the patients current medications (includes all prescriptions, OTC, herbals, c annabis, and nutritional supplements).: Yes
[2025-04-13 14:00] VITALS: BP 113/63; PULSE 78; RESP 18; TEMP 36.6; O2SAT 100
[2025-04-13] MEDS: LORATADINE 10 MG TABLET PO (16:21)
[2025-04-13 20:41] VITALS: BP 133/79; PULSE 88; RESP 20; TEMP 36.9; O2SAT 99
[2025-04-13 21:04] VITALS: O2SAT 99
[2025-04-14 01:44] LABS: Vancomycin Trough 9.6 ug/mL (10.0-20.0)
[2025-04-14] MEDS: VANCOMYCIN 1,750 MG/NS 500 ML 1,750 MG/500 ML BAG 125 MG IVPB (02:57)
[2025-04-14] MEDS: HYDROcodone/acetaminophen (*CRX) 5-325 MG TABLET 1 TAB PO (03:26)
[2025-04-14 05:40] VITALS: BP 141/59; PULSE 74; RESP 20; TEMP 35.8; O2SAT 100
[2025-04-14 06:19] LABS: Basophils Percent Auto 0.6 % (0.2-1.2); Eosinophils Absolute Auto 0.3 K/mm3 (0-0.3); Eosinophils Percent Auto 3.9 % (0-4.4); Hematocrit 30.2 % (37.0-47.0); Hemoglobin 9.8 g/dL (12.0-15.0); Immature Granulocyte Absolute 0.03 K/mm3 (0.00-0.031); Immature Granulocyte Percent A 0.4 % (0-0.5); Lymphocytes Absolute Auto 2.42 K/mm3 (0.9-3.2); Lymphocytes Percent Auto 33.9 % (18.3-44.2); Mean Corpuscular HGB Conc 32.5 g/dl (32-36); Mean Corpuscular Hemoglobin 28.6 pg (26-34); Mean Platelet Volume 9.7 fl (7.4-10.4); Monocytes Absolute Auto 0.6 K/mm3 (0.1-0.6); Monocytes Percent Auto 8.7 % (2.6-8.5); Neutrophils Absolute Auto 3.8 K/mm3 (1.3-6.7); Neutrophils Percent Auto 52.5 % (45.5-73.1); Platelet Count Result 321 k/mm3 (150-375); Red Blood Count 3.43 M/mm3 (4.2-5.4); Red Cell Distribution Width 12.2 % (11.5-14.5); White Blood Count 7.1 K/mm3 (4.5-10.0)
[2025-04-14 06:30] LABS: Alanine Aminotransferase 48 U/L (6-35); Albumin Level 3.1 g/dL (3.5-5.1); Alkaline Phosphatase 52 U/L (38-126); Anion Gap 6 mmol/L (4-12); Aspartate Amino Transferase 35 U/L (14-36); Bilirubin,Total 0.2 mg/dL (0.2-1.3); Blood Urea Nitrogen 9 mg/dL (7-17); CRP < 0.5 mg/dL (<1.0); Calcium 7.9 mg/dL (8.4-10.2); Carbon Dioxide 23 mmol/L (22-30); Chloride 107 mmol/L (98-107); Estimated CRCL calculation 153 ml/min; Estimated Glomerular Filt Rate > 60; Glucose 108 mg/dL (65-110); Potassium 3.9 mmol/L (3.4-5.0); Sodium 136 mmol/L (137-145); Total Protein 6.3 g/dL (6.3-8.2)
[2025-04-14 07:01] LABS: Erythrocyte Sedimentation Rate 65 mm/hr (0-20)
[2025-04-14] MEDS: CHLORHEXIDINE GLUCONATE 4% SOL 120 ML BTL 1 APPLIC TOPICAL (08:33)
[2025-04-14] MEDS: ENOXAPARIN 40 MG/0.4 ML SYRINGE SUB-Q (08:33)
[2025-04-14] MEDS: LINEZOLID 600 MG TABLET PO (12:22)
[2025-04-14 14:00] VITALS: BP 104/76; PULSE 87; RESP 18; TEMP 36.3; O2SAT 100
--- NOTE | 2025-04-14 14:10 | P.CONGS_ITS ---
Assessment and Plan Assessment and plan (1) Abscess of left thigh: Code(s): L02.416 - Cutaneous abscess of left lower limb Status: Acute Assessment and Plan: * S/p I&D on 04/07/25. Abscess was adequately drained and the wound appears to be healing well. There is very minimal residual induration, which has significantly improved since my last evaluation last week. This appears to be healing as expected, but she developed a rash felt to be a drug reaction to Levaquin. Her wound culture grew MRSA that is multi-drug resistant. Oral antibiotic options are limited, but could consider switching to Linezolid. Discussed with ID pharmacist, who agrees with transition. Will provide patient with goodRx card given the cost of this drug. Okay from our standpoint to discharge on Linezolid and follow-up as scheduled with Dr. Lozano in 2 weeks. Continue daily gauze dressing changes until no longer having any drainage from the open wound, which will likely only be another few days. (2) MRSA cellulitis: Code(s): L03.90 - Cellulitis, unspecified; B95.62 - Methicillin resistant Staphylococcus aureus infection as the cause of diseases classified elsewhere Status: Acute Assessment and Plan: * Resolving. Will treat with another 5 days of oral antibiotics and f/u in 2 weeks. (3) Rash: Code(s): R21 - Rash and other nonspecific skin eruption Status: Acute (4) Prediabetes: Code(s): R73.03 - Prediabetes Status: Acute (5) Morbid obesity: Code(s): E66.01 - Morbid (severe) obesity due to excess calories Status: Acute Plan I have discussed the patient's case and plan of care with Dr. Lozano. History of Present Illness Consult details Consult date: 04/14/25 Reason for consult: other (Follow-up left thigh abscess) Requesting physician: Zara Rees APRN Narrative: This is a 39-year-old woman who is known to our service from a recent hospitalization for a left thigh abscess. She underwent incision and drainage on 04/07/2025 at the bedside. Cultures grew MRSA and she was discharged on Levaquin. She had taken Bactrim prior to the hospitalization for 6 days and considered failure of antibiotic treatment as well as had a slightly elevated creatinine on admission. She was discharged home on 04/10/2025 and shortly after taking her first dose of Levaquin at home, she developed a diffuse rash across her trunk and arms. She tried Benadryl, but felt her rash was worse by the morning. Therefore she came back into the ED 2 days ago for evaluation. Labs showed a white blood cell count that was normal. Creatinine normal. She was admitted for IV antibiotics and has been receiving IV vancomycin since admission. Our service has been consulted. Sensitivities show resistance to tetracyclines. She reports complete resolution of the pain and swelling in her left thigh. She is still using a gauze dressing as there is minimal serous drainage daily when it is removed. No fevers. No other complaints at this time. Review of Systems 2 Review of Systems: All systems reviewed & are unremarkable except as noted in HPI and below PMFSH Past Medical History Medical History No active medical problems Surgical History Surgical History History of tonsillectomy History of cholecystectomy Family History Family History Mother Pancreatic cancer Diabetes mellitus Social History Social History Smoking packs per day: 0.12 Smoking cigarettes per day: 2.4 Years smoked: 20 Smoking pack-years: 2.40 Smoking status: Former smoker Smoking end date: 03/29/25 Alcohol intake: never Substance use: current Substance use type: marijuana Last use: 04/12 Do You Feel Safe in your Home?: Yes Lack of Transportation: No Lack of Food: Never True Current Housing: I Have Housing Concerned About Future Housing: No Difficulty Paying Gas/Electric Bills: No Difficulty Paying for Meds: No Currently Unemployed: No Education: Decline to Answer Difficulty w/ Childcare or Family Care: No Spiritual care concerns: No Meds Home Medications and Allergies Home Medications ?Medication ?Instructions ?Recorded ?Confirmed ?Type albuterol sulfate 90 mcg/actuation 2 puff inhalation QID PRN 11/30/24 04/12/25 Rx aerosol inhaler (Ventolin HFA) shortness of breath or wheezing #8.5 grams hydrocodone 5 mg-acetaminophen 325 1 tablet PO Q4H PRN Pain Rated 6 04/10/25 04/12/25 Rx mg tablet Or Greater #6 tabs levofloxacin 750 mg tablet 750 mg PO DAILY 5 days #5 tabs 04/10/25 04/12/25 Rx linezolid 600 mg tablet 600 mg PO Q12HR 5 days #10 tabs 04/14/25 Rx Allergies Allergy/AdvReac Type Severity Reaction Status Date / Time levofloxacin Allergy Mild Rash Verified 04/12/25 12:53 Vital Signs Vital Signs - 24 hr 04/13/25 20:00 04/13/25 20:41 04/13/25 21:04 Temperature 98.5 F Pulse Rate 88 Respiratory Rate 20 Blood Pressure 133/79 Pulse Oximetry 99 99 Oxygen Delivery Room Air Room Air Fraction of Inspired Oxygen 21 04/14/25 05:40 Temperature 96.5 F L Pulse Rate 74 Respiratory Rate 20 Blood Pressure 141/59 H Pulse Oximetry 100 Oxygen Delivery Fraction of Inspired Oxygen Exam 2 Const: General: comfortable and no acute distress Nutritional Appearance: o bese Orientation/consciousness: patient oriented x3 HENMT: Head: normocephalic and atraumatic Ears: hearing grossly normal bilaterally Eyes: General: appearance normal, both eyes and all related structures P upils: Equal, round and reactive pupils present Neck: Neck: normal visual inspection and full ROM Resp: Effort & Inspection: no respiratory distress Auscultation: clear to auscultation bilaterally Cardio: Rate: regular rate Rhythm: regular rhythm Peripheral pulses: P eripheral pulses 2+ throughout GI: Inspection: non-distended GI Palp: Yes Soft to palpation, No Tenderness to palpation present (GI) and No Guarding due to palpation present (GI) A uscultation: normal bowel sounds Skin: General skin exam: normal color Other: Left medial thigh with a 1 x 0.5 x 0.3 cm open wound with granulation tissue in the base of the wound. There is very minimal residual, improving induration just around the wound in about half the size of when she was discharged last week. No erythema or warmth. Nontender in this area. No drainage. Neuro: General: moves all extremities and no focal motor deficits Speech: n ormal speech Motor exam (neuro): 5/5 motor strength present throughout Extrem: General: normal to inspection and no edema Psych: Mental Status: mental status grossly normal Attitude: cooperative Insight: Good insight present (Psych) Judgement: Good judgement present (Psych) Results Labs 04/14/25 05:50 04/14/25 05:50 Labs: Abnormal lab results 04/14/25 04/14/25 Range/Units 00:57 05:50 RBC 3.43 L (4.2-5.4) M/mm3 Hgb 9.8 L (12.0-15.0) g/dL Hct 30.2 L (37.0-47.0) % [place] % (Auto) 8.7 H (2.6-8.5) % ESR 65 H (0-20) mm/hr Sodium 136 L (137-145) mmol/L Calcium 7.9 L (8.4-10.2) mg/dL ALT 48 H (6-35) U/L Albumin 3.1 L (3.5-5.1) g/dL Vancomycin Trough 9.6 L (10.0-20.0) ug/mL Diabetes panel 04/14/25 Range/Units 05:50 Sodium 136 L (137-145) mmol/L Potassium 3.9 (3.4-5.0) mmol/L Chloride 107 (98-107) mmol/L Carbon Dioxide 23 (22-30) mmol/L BUN 9 (7-17) mg/dL Creatinine 0.77 (0.7-1.0) mg/dL Glucose 108 (65-110) mg/dL Calcium 7.9 L (8.4-10.2) mg/dL AST 35 (14-36) U/L ALT 48 H (6-35) U/L Alkaline Phosphatase 52 (38-126) U/L Total Protein 6.3 (6.3-8.2) g/dL Albumin 3.1 L (3.5-5.1) g/dL Calcium panel 04/14/25 Range/Units 05:50 Calcium 7.9 L (8.4-10.2) mg/dL Albumin 3.1 L (3.5-5.1) g/dL Pituitary panel 04/14/25 Range/Units 05:50 Sodium 136 L (137-145) mmol/L Potassium 3.9 (3.4-5.0) mmol/L Chloride 107 (98-107) mmol/L Carbon Dioxide 23 (22-30) mmol/L BUN 9 (7-17) mg/dL Creatinine 0.77 (0.7-1.0) mg/dL Glucose 108 (65-110) mg/dL Calcium 7.9 L (8.4-10.2) mg/dL Adrenal panel 04/14/25 Range/Units 05:50 Sodium 136 L (137-145) mmol/L Potassium 3.9 (3.4-5.0) mmol/L Chloride 107 (98-107) mmol/L Carbon Dioxide 23 (22-30) mmol/L BUN 9 (7-17) mg/dL Creatinine 0.77 (0.7-1.0) mg/dL Glucose 108 (65-110) mg/dL Calcium 7.9 L (8.4-10.2) mg/dL Total Bilirubin 0.2 (0.2-1.3) mg/dL AST 35 (14-36) U/L ALT 48 H (6-35) U/L Alkaline Phosphatase 52 (38-126) U/L Total Protein 6.3 (6.3-8.2) g/dL Albumin 3.1 L (3.5-5.1) g/dL All other labs normal.
--- NOTE | 2025-04-14 15:38 | P.DS_ITS ---
DS: Admitting Diagnosis Discharge Date 04/14/25 Admitting Diagnosis MRSA positive abscess DS: Discharge Diagnosis Discharge Diagnosis (1) Abscess of left thigh: Code(s): L02.416 - Cutaneous abscess of left lower limb Status: Acute (2) MRSA cellulitis: Code(s): L03.90 - Cellulitis, unspecified; B95.62 - Methicillin resistant Staphylococcus aureus infection as the cause of diseases classified elsewhere Status: Acute DS: Summary Hospital Course Hospital Course: 39-year-old patient with past medical history of prediabetes and morbid obesity presented earlier this week to the hospital for cellulitis and a abscess status post I&D on 04/07/2025 was sent home on oral antibiotics and was found to be positive for MRSA and due to drug allergy of levofloxacin and failing outpatient Bactrim she will be admitted for IV antibiotics. Patient states that she took her 1st dose levofloxacin yesterday around noon she states at bedtime she became severely itchy which progressed overnight however she denies any swelling of lips, tongue is or difficulty with his breathing. She is limited on oral antibiotics that she can take so she will be admitted for IV antibiotics. Lab work in the ED shows anemia 11.7, BMP within normal limits, glucose slightly elevated 135, AST 57, ALT 62 not previously elevated, soft tissue ultrasound shows Irregularly shaped complex area in the left medial upper thigh measuring 2.7 x 4 x 1.1 cm which may be inflammatory in nature versus a small hematoma. Patient was started on vancomycin and doxy. Patient was discharged 04/10 after she was managed for Cellulitis and abscess left thigh and was discharged to Levofloxacin which she noted she reacted to Levaquin causing her to re-present to ER. Patient was seen by Surgery today and switched to Linezolid. Patient was discharged on Linezolid and will continue follow up with Surgery F/u with PCP in 3-5 days Time Spent with Patient Time attestation: Total time spent providing and/or coordinating discharge services: DS: Data Data Completed and Pending Labs on day of discharge: Labs from last 24 hours 04/14/25 04/14/25 05:50 00:57 WBC 7.1 RBC 3.43 L Hgb 9.8 L Hct 30.2 L MCV 88.0 MCH 28.6 MCHC 32.5 RDW 12.2 Plt Count 321 MPV 9.7 Immature Gran % (Auto) 0.4 Neut % (Auto) 52.5 Lymph % (Auto) 33.9 Flagler % (Auto) 8.7 H Eos % (Auto) 3.9 Baso % (Auto) 0.6 Lymph # (Auto) 2.42 Flagler # (Auto) 0.6 Eos # (Auto) 0.3 Baso # (Auto) 0.0 Abs Immat Gran (auto) 0.03 Absolute Neuts (auto) 3.8 Absolute Nucleated RBC 0.000 Nucleated RBC % 0.0 ESR 65 H Sodium 136 L Potassium 3.9 Chloride 107 Carbon Dioxide 23 Anion Gap 6 BUN 9 Creatinine 0.77 Estim Creat Clear Calc 153 Estimated GFR > 60 Glucose 108 Calcium 7.9 L Total Bilirubin 0.2 AST 35 ALT 48 H Alkaline Phosphatase 52 C-Reactive Protein < 0.5 Total Protein 6.3 Albumin 3.1 L Vancomycin Trough 9.6 L Discharge Plan Discharge Attending physician on discharge: Ford Romo Consulting providers: Sylvester Edwards; Zara Rees; Rosalee Lozano Discharging Clinician: Ford Romo Anticipated Discharge Date/Time: 04/14/25 14:59 Patient Disposition: Home Activity: as tolerated Diet: as tolerated, regular and diabetic Discharge Instructions: * Follow-up as scheduled on 04/23/[address] Lozano. * Continue daily gauze dressing changes until no longer having any drainage. Shower over left thigh wound daily. * claims support specialist new prescription at [facility] and complete antibiotics as prescribed. Patient Instructions: Antibiotic Form, MRSA (Methicillin-Resistant Staphylococcus Aureus) (GEN), Cellulitis (GEN) Patient Language: Russian Stand Alone Forms: General Discharge Information, Work/School Release IP Follow-up/Referrals: Rosalee Lozano MD [Physician] - Keep Reg. Scheduled Appt. Discharge Medications: New linezolid 600 mg Tablet 600 mg PO Q12HR 5 Days Qty: 10 0RF Continued albuterol sulfate [Ventolin HFA] 90 mcg/actuation HFA aerosol inhaler 2 puff inhalation QID PRN (Reason: shortness of breath or wheezing) Qty: 8.5 0RF hydrocodone-acetaminophen 5-325 mg Tablet 1 tablet PO Q4H PRN (Reason: Pain Rated 6 Or Greater) Qty: 6 0RF Discontinued levofloxacin 750 mg tablet 750 mg PO DAILY 5 Days Qty: 5 0RF Date of admission: 04/13/25 12:45 Primary Care Provider: PHYSICIAN,FEATHEREDGE MACHINE OPERATOR Admitting Provider: Magdy Grande Attending physician on admission: Magdy Grande Condition: Stable
--- NOTE | 2025-04-15 07:57 | P.CDI_ITS ---
CDI Query Clarification Request Patient with a BMI of 58.7 please provide a diagnosis to accompany this finding: * Overweight * Obesity * Morbid Obesity * Other/Unknown <Donna Bush RN - Last Filed: 04/15/25 07:58> Clarified Diagnosis Clarified Diagnosis: Morbid Obesity <Ford Romo MD - Last Filed: 04/16/25 08:05>
== END 2025-04-14 15:25 | disposition home or self-care (01) | DRG 383 ==
LOC: ANHED 14:37 → ANH3MEDSUR 14:56
PROVIDERS: Nurse Practitioner Acute Care; Nurse Practitioner Gerontology; Admitting Provider Internal Medicine; Emergency Provider Student in an Organized Health Care Education/Training Program; Visit Provider Internal Medicine
DX: L03.116 Cellulitis of left lower limb (principal); L27.0 Generalized skin eruption due to drugs and medicaments taken internally; T36.8X5A Adverse effect of other systemic antibiotics, initial encounter; R73.03 Prediabetes; E66.01 Morbid (severe) obesity due to excess calories; B95.62 Methicillin resistant Staphylococcus aureus infection as the cause of diseases classified elsewhere; F17.210 Nicotine dependence, cigarettes, uncomplicated; Z68.43 Body mass index [BMI] 50.0-59.9, adult
CPT/HCPCS: 36415; 80048; 80053; 80202; 83735; 85025; 85652; 86140; 96365; 96366; 99285; A4248; A9270; G0378; G0379; J1650; J3370; J7030

== ENCOUNTER 2025-07-30 00:43 | Day surgery (SDC) | payer BC, SELFPAY ==
--- NOTE | 2025-07-17 08:26 | SUR.PREOP ---
[facility] has started construction of its new state of the art ER which will open Spring 2026. With this, we anticipate parking may be a challenge for some our surgical patients and families. Parking spaces are limited but are available for all Surgical, obstetrics, and ER patients sharing this lot. If you arrive and find you are having a hard time finding a parking space, please note that we understand the challenges, please drive around the hospital and park near Hospital Entrance 1. When you enter this entrance, you can ask a volunteer to direct or take you back to the surgical waiting area to check in. We appreciate everyone?s understanding of these expected challenges while we build for your future. Report to the Outpatient Waiting Room, entrance under the green pavilion located off [address], at time ____07___ on date ____07/30/25___. Planned Procedure Time: ____0900____.? Time changes happen often and if your time is changed the preop area will call you the afternoon before. - You and your visitor will be asked to self-screen and do not enter if you have any COVID symptoms. Please call surgeon if you need to reschedule. - A mask is optional within the hospital at this time. Patients may have clear liquids (water, carbonated beverages, clear teas, apple juice) until 3 hours prior to surgery with a maximum of 20 ounces. - NO CLEAR LIQUIDS AFTER 0600 - No food from midnight until time of surgery and no smoking, or chewing tobacco (or any form of nicotine). No chewing gum, candy or mints. - Infants may have breast milk until 4 hours before surgery, formula 6 hours prior to surgery. - Children will be allowed to drink immediately following surgery.? If applicable, please bring a bottle or sippy cup to assist with drinking. Juice, water, soda, and popsicles are readily available.? For infants on formula, please bring formula the day of surgery.? Pacifiers are allowed. Take only the following medications with a SIP of water on the morning of surgery: N/A DO NOT STOP ANY OF YOUR OTHER PRESCRIPTION MEDICATIONS PRIOR TO SURGERY EXCEPT THE FOLLOWING Hold all vitamins and supplements for 3 days per anesthesiologist. Medications to discontinue per physician N/A Date to take last dose Please no make-up, nail korean, hairspray, perfume, deodorant, or body powder the day of surgery.? No jewelry (including any body piercings) or valuables the day of surgery, leave them at home.? Please take a shower or bath the night before, or the morning of, surgery with an antibacterial soap.? Wear comfortable, loose fitting clothing.? Children are encouraged to wear pajamas. - Jewelry must be removed prior to entering the operating room.? Rings and piercings that are not removed may be cut off. - The hospital will not accept responsibility for valuables.? - Please leave all valuables, including medications, at home the day of surgery. If you are going home after surgery, a licensed patrol driver must drive you home.? - NO public transportation without another adult if you receive anesthesia. - We recommend that an adult stay with you for 24 hours following discharge. - We also recommend that you do not drive, make important decision, drink alcoholic beverages, or take any drugs that were not prescribed by your health care provider for at least 24 hours after your discharge time. For Pediatric surgeries, we recommend two adults accompany the child home. Follow any additional instructions given to you from your surgeon. Telephone instructions given to KARELY GLOVER and asked if any additional questions and then verbalized understanding. Patient advised to call surgeon office or pre surgery nurse liaison [phone] if any additional questions.
[2025-07-17 08:34] VITALS: BMI 58.2
[2025-07-30] VITALS (9 sets, daily range): BP systolic 118–164; BP diastolic 82–92; PULSE 66–97; RESP 14–20; TEMP 36.4; O2SAT 98–100
[2025-07-30] MEDS: ACETAMINOPHEN 500 MG TABLET 1000 MG PO (07:30)
[2025-07-30] MEDS: LACTATED RINGERS 1,000 ML 30 ML IV CONT ×2 (07:30→10:06)
[2025-07-30] MEDS: KETOROLAC 15 MG/ML VIAL (*BKC) IV PUSH (07:30)
[2025-07-30] MEDS: SCOPOLAMINE 1 MG PATCH 1 PATCH TRANSDERM (08:02)
[2025-07-30 08:03] LABS: BEDSIDEPREGUCG Negative (Negative)
--- NOTE | 2025-07-30 08:11 | P.PNAN_ITS ---
Anes - Initial Pre Proc Eval Procedure: Operation Date: 07/30/25 09:00 Proposed Procedures p Laparoscopic Bilateral Salpingectomy, - Jayme Weldon MD s Hysteroscopy with Isaura Endometrial Ablation - Jayme Weldon MD Date/Time: 07/30/25 08:11 Surgeon: Jayme Weldon MD Pre Op Diagnosis: desires sterilization, menorrhagia Patient Data Age: 40 Gender: F Height: 1.75 m Weight: 178.5 kg Last Vital Signs Temp 36.4 C L 07/30/25 07:30 Pulse 87 07/30/25 07:30 Resp 14 07/30/25 07:30 BP 158/82 H 07/30/25 07:30 Pulse Ox 98 07/30/25 07:30 O2 Del Method Room Air 07/30/25 07:30 Allergies Allergy/AdvReac Type Severity Reaction Status Date / Time levofloxacin Allergy Mild Rash Verified 07/30/25 08:06 Home Medications ?Medication ?Instructions ?Recorded ?Confirmed ?Type No Home Medications 04/30/25 07/17/25 H istory Laboratory Tests 07/30/25 07:30 POC Urine HCG, Qual Negative (Negative) Patient hx anesthesia problems: none Family hx anesthesia problems: none Results Review: All pre-operative results and documents have been reviewed as part of the pre- operative evaluation. FOR[facility]LY [facility] Past Medical History Medical History (Updated 07/30/25 @ 08:13 by Colin Xiong MD) Morbid obesity Surgical History Surgical History Encounter for incision and drainage procedure 04/07/25 incision and drainage of simple left thigh abscess Dr. Lozano History of tonsillectomy History of cholecystectomy Family History Family History Mother Pancreatic cancer Diabetes mellitus Social History Social History Smoking packs per day: 0.12 Smoking cigarettes per day: 2.4 Years smoked: 20 Smoking pack-years: 2.40 Smoking status: Current every day smoker Tobacco type: cigarettes Smoking end date: 03/29/25 Alcohol intake: never Substance use: current Substance use type: marijuana Other substance usage details: DAILY MARIJUANA USE Last use: 6/14 Do You Feel Safe in your Home?: Yes Lack of Transportation: No Lack of Food: Never True Current Housing: I Have Housing Concerned About Future Housing: No Difficulty Paying Gas/Electric Bills: No Difficulty Paying for Meds: No Currently Unemployed: No Education: Decline to Answer Difficulty w/ Childcare or Family Care: No Living arrangements: with family Spiritual care concerns: No Anes - Eval Final PreProcedure Day of Procedure 07/30/25 08:11 Patient weight: super morbidly obese Heart: regular rate and rhythm Lungs: clear to auscultation Airway: Mallampati scale class II Neurological: alert and oriented Last oral intake: >/= 8 hours ASA classification: IV Emergent: no Anesthetic plan: proceed Anesthesia type and monitoring: general ETT and standard monitoring Results Review: All pre-operative results and documents have been reviewed as part of the pre- operative evaluation. Informed Consent: The patient's anesthetic plan and its attendant risks and benefits were discussed with the patient/family/POA. Questions were solicited and answers provided to the satisfaction of the patient/family/POA.
--- NOTE | 2025-07-30 08:20 | P.HP_ITS ---
H&P: HPI History of Present Illness Date/Time: 07/30/25 08:20 Chief Complaint: Menorrhagia Narrative: this patient is a 39-year-old female with severe menorrhagia. She would like endometrial ablation. She is familiar with the procedure and understands its efficacy. She declined any medical treatment. Agreed to proceed with endometrial ablation with hysteroscopy and laparoscopic bilateral salpingectomy. The patient understands the procedure. The procedure was described to the patient in great detail. the patient also understands the risks. The risks were also explained in detail. She understands that injuries May occur during surgery. She understands these injuries can result in hospitalization, more surgery, and severe illness. She understands there is risk of hemorrhage and infection. Review of Systems Review of Systems: All systems reviewed & are unremarkable except as noted in HPI and below Constitutional: Constitutional: Denies chills, Denies fatigue, Denies fever(s) and Denies weakness Eyes: Eyes: Denies blurry vision, Denies change in vision, Denies loss of peripheral vision, Denies loss of vision, Denies other visual disturbances and Denies eye pain ENT: Denies vertigo, Denies dizziness, Denies hearing loss, Denies mouth pain, Denies nasal obstruction, Denies neck mass and Denies neck pain Cardiovascular: Cardiovascular: Denies chest pain, Denies diaphoresis, Denies syncope, Denies leg edema and Denies dyspnea Respiratory: Respiratory: Denies chest congestion, Denies cough, Denies hemoptysis, Denies dyspnea and Denies wheezing Gastrointestinal: Gastrointestinal: Denies abdominal pain, Denies constipation, Denies diarrhea, Denies nausea and Denies vomiting Genitourinary: Genitourinary: Denies hematuria, Denies change in libido, D enies nocturia, Denies genital lesions, Denies flank pain and Denies urinary urgency Musculoskeletal: Musculoskeletal: Denies abnormal gait, Denies back pain, Denies myalgias, Denies arthralgias, Denies joint swelling, Denies muscle weakness and Denies neck pain Integumentary/Breasts: Skin/Breast: Denies swelling, Denies breast pain, Denies breast mass, Denies dry skin, Denies nipple discharge, Denies unusual bruising and Denies jaundice Neurologic: Denies Neuro-related abnormal movements, Denies Abnormal speech present, Denies abnormal gait, Denies behavioral changes, Denies confusion, Denies vertigo, Denies dizziness, Denies syncope, Denies loss of vision, Denies memory loss, Denies convulsions and Denies weakness Psychiatric: Psychiatric: Denies abnormal sleep pattern, Denies behavioral changes, Denies change in libido, Denies confusion, Denies depression, Denies anhedonia and Denies memory loss Endocrine: Endocrine: Reports no additional endocrine complaints, Denies change in libido and Denies fatigue Hematologic/Lymphatic: Hematologic/Lymphatic: Reports no additional hematologic/lymphatic complaints Allergic/Immunologic: Allergic/Immunologic: Reports no additional allergic/immunologic complaints and Denies wheezing PMFSH Past Medical History Medical History (Updated 07/30/25 @ 08:23 by Jayme Weldon MD) Morbid obesity Surgical History Surgical History Encounter for incision and drainage procedure 04/07/25 incision and drainage of simple left thigh abscess Dr. Lozano History of tonsillectomy History of cholecystectomy Family History Family History Mother Pancreatic cancer Diabetes mellitus Social History Social History Smoking packs per day: 0.12 Smoking cigarettes per day: 2.4 Years smoked: 20 Smoking pack-years: 2.40 Smoking status: Current every day smoker Tobacco type: cigarettes Smoking end date: 03/29/25 Alcohol intake: never Substance use: current Substance use type: marijuana Other substance usage details: DAILY MARIJUANA USE Last use: 04/12 Do You Feel Safe in your Home?: Yes Lack of Transportation: No Lack of Food: Never True Current Housing: I Have Housing Concerned About Future Housing: No Difficulty Paying Gas/Electric Bills: No Difficulty Paying for Meds: No Currently Unemployed: No Education: Decline to Answer Difficulty w/ Childcare or Family Care: No Living arrangements: with family Spiritual care concerns: No Meds Home Medications and Allergies Home Medications ?Medication ?Instructions ?Recorded ?Confirmed ?Type No Home Medications 04/30/25 07/17/25 H istory Allergies Allergy/AdvReac Type Severity Reaction Status Date / Time levofloxacin Allergy Mild Rash Verified 07/30/25 08:06 Vital Signs Vital Signs - 24 hr 07/30/25 07:30 Temperature 97.5 F L Pulse Rate 87 Respiratory Rate 14 Blood Pressure 158/82 H Pulse Oximetry 98 Oxygen Delivery Room Air Exam Const: General: cooperative, healthy appearing, comfortable and no acute distress Orientation/consciousness: oriented to person, oriented to place and oriented to time HENMT: Head: normal to inspection Ears: external ears normal Face/Nose/Sinus: Normal external nose present and normal facial exam Face and sinus: normal facial exam Eyes: General: appearance normal, both eyes and all related structures Neck: Neck: normal visual inspection, trachea midline and supple Resp: Auscultation: clear to auscultation bilaterally, no crackles, no rales, no rhonchi and no wheezes Cardio: Rate: regular rate Rhythm: regular rhythm Heart sounds: no click, no murmurs and no rubs GI: GI Palp: No abdominal tenderness, No Soft to palpation, No Tenderness to palpation present (GI) and No Palpable mass present Auscultation: normal bowel sounds Skin: General skin exam: normal color and no rashes or lesions noted Neuro: General: oriented to person, oriented to place and oriented to time Extrem: General: normal to inspection, no joint enlargement, no clubbing, cyanosis or edema, no pedal edema and no calf tenderness Psych: Appearance: grossly normal Mental Status: mental status grossly normal Speech and movement: Normal speech and movement present Assessment and Plan Assessment and plan (1) Menorrhagia: Code(s): N92.0 - Excessive and frequent menstruation with regular cycle Status: Acute Assessment and Plan: This patient is a 40-year-old female with severe menorrhagia. We agreed form endometrial ablation with hysteroscopy and laparoscopic bilateral salpingectomy. She understands risks, benefits, and alternatives. She has completed the informed consent process is ready to proceed.
--- NOTE | 2025-07-30 08:24 | WPDHPUPDATE1 ---
History and Physical Update Update Date/Time: 07/30/25 08:24 History and Physical has been reviewed, including an updated exam of the patient. There are NO changes in the patient's condition. Risks, benefits, and alternatives have been discussed and questions answered. Patient agrees to proceed with procedure.
--- NOTE | 2025-07-30 09:30 | S_PTH ---
PATIENT: Aylin Lawton LOC: [facility] U#:[id number] AGE/SX: 40/F ROOM: RE07/30/[address]: Jayme Weldon MD : 1985 BED: DIS: 07/30/2025 SPEC #: [id number] RECD: 07/30/25 11:27 STATUS: LORI REBarby #: [id number] DONNY: 07/30/25 09:[address]: Jayme Weldon DEPT: [facility] Surgical RECD BY: Aniyah Uribe ENTERED: 07/30/25 11:27 SP TYPE: Surgical OTHR DR: BUILDING CODE ADMINISTRATOR PHYSICIAN Tissues: A - Fallopian Tube Bilateral Procedures: Gross and Microscopic Level 2 Hematoxylin and Eosin Stain
--- NOTE | 2025-07-30 10:02 | P.OP_ITS ---
Procedure Note - Detailed Date of Procedure 07/30/25 Pre-op Diagnosis desires sterilization, menorrhagia Post-op Diagnosis Same Procedure Performed Laparoscopic bilateral salpingectomy with endometrial ablation and hysteroscopy. Surgeon Jayme Weldon MD Anesthesia General Indications Menorrhagia, female sterilization Findings Normal appearing pelvic anatomy, normal vulva, vagina, cervix. Normal endometrium Description of Procedure Patient was taken the operating room. She has prepped draped in the dorsal lithotomy position after induction of general anesthesia. A 5 mm abdominal incision was made in left upper quadrant of the abdomen with scalpel. A 5 mm trocars inserted the intra-abdominal cavity under direct visualization of the scope. Pneumoperitoneum was achieved. A 5 mm periumbilical incision was made using a scalpel on the abdominal scan. A 5 mm trocar was inserted the intra- abdominal cavity under visualization of the scope. A 5 mm incision made left lower quadrant of the abdomen. A 5 mm trocar was inserted the intra-abdominal cavity and direct visualization of the scope. The bilateral fallopian tubes were removed. The paratubal tissue in the area of the uterus was grasped with the LigaSure cautery and transected after being cauterized. The paratubal tissue from the ovary to the uterine cornu was cauterized and transected with LigaSure cautery. This was all done in a b ilateral fashion. The tube was transected at the area of the uterine cornua and the tubes was removed through the 5 mm trocar site. The pneumoperitoneum was reduced. The trocars were removed. The skin was closed with subcuticular 4 Monocryl and covered with Dermabond. Our attention was then turned to the endometrial ablation portion of the procedure. A speculum was placed in the vagina. The cervix was grasped with a tenaculum. The cervix was dilated to approximately 8 mm with Cheung dilators. The hysteroscope was inserted. And the below findings were noted. All of the intrauterine surfaces were curettaged with a medium-size curette and the specimens were collected. Measurements of the cervix were taken using the uterine sound and the hysteroscope. The intrauterine cavity measurements were entered into the handpiece. The device was inserted into the intrauterine cavity and the array was expanded. The balloon cuff was inflated. When an adequate seal was formed the safety and energy cycles were initiated and completed. The array was collapsed, the balloon was deflated. The insert was withdrawn. The hysteroscope was reinserted and a well desiccated intrauterine cavity was observed. The patient was taken recovery room stable condition. Sponge lap and needle counts were correct x2. She tolerated the procedure well. Pathology Yes Complications No immediate complications Condition Stable Disposition PACU
[2025-07-30] MEDS: fentaNYL CITRATE INJ (*CRX) 100 MCG/2 ML VIAL 25 MCG IV PUSH ×8 (10:05→10:30)
[2025-07-30] MEDS: HYDROmorphone HCL INJ (*CRX) 1 MG/ML SYR 0.5 MG IV PUSH ×4 (10:35→10:51)
[2025-07-30] MEDS: oxyCODONE HCL (*CRX) 5 MG TAB IR PO (11:20)
== END 2025-07-30 12:01 | disposition home or self-care (01) ==
PROVIDERS: Visit Provider Obstetrics & Gynecology
PROC: (CPT 49320; principal; 2025-07-30 09:00)
PROC: 0U5B8ZZ Destruction of Endometrium, Via Natural or Artificial Opening Endoscopic (ICD-10-PCS; CPT 58563; 2025-07-30 09:00)
DX: N92.0 Excessive and frequent menstruation with regular cycle (principal); G89.18 Other acute postprocedural pain; F17.210 Nicotine dependence, cigarettes, uncomplicated; F12.90 Cannabis use, unspecified, uncomplicated; E66.01 Morbid (severe) obesity due to excess calories; Z68.43 Body mass index [BMI] 50.0-59.9, adult; Z98.890 Other specified postprocedural states; Z90.49 Acquired absence of other specified parts of digestive tract; Z80.0 Family history of malignant neoplasm of digestive organs
CPT/HCPCS: 58661; 58563; 88302; A9270; J0330; J1100; J1171; J1885; J2003; J2250; J2405; J2704; J3010; J7120

== ENCOUNTER 2025-08-04 14:23 | Outpatient (CLI) | payer BC, SELFPAY ==
--- NOTE | ~2025-08-04 | US_ITS ---
EXAMINATION: US venous doppler LE RT, 08/04/2025 14:26 CDT HISTORY: R leg numbness Comparison: None Technique: Arita-scale and color Doppler images were attempted of the lower saphenofemoral junction, common femoral vein,superficial femoral vein, proximal deep femoral vein, proximal deep femoral vein, popliteal vein and posterior tibial veins. Findings: Deep Venous System:Normal flow, augmentation and compressibility. No echogenic thrombus identified. The contralateral saphenofemoral junction appears unremarkable. Superficial Venous SystemNo superficial thrombophlebitis. Soft tissues: Soft tissues are unremarkable. Impression: Negative for DVT. Reviewed, dictated and finalized at location P. Impression: Negative for DVT.
== END 2025-08-04 14:24 | disposition home or self-care (01) ==
LOC: MICIMG 14:24
PROVIDERS: PCP Obstetrics & Gynecology; Visit Provider Obstetrics & Gynecology
DX: R20.0 Anesthesia of skin (principal)
CPT/HCPCS: 93971